=== PATIENT | female | born 1930 | race Caucasian/White ===

== ENCOUNTER 2017-04-07 07:00 | Inpatient (IN) | payer OTHER, MEDICARE ==
[2017-04-07] VITALS (9 sets, daily range): BP systolic 101–142; BP diastolic 55–72; PULSE 72–89; RESP 18–20; TEMP 96.2–97.9; O2SAT 95–99
[~2017-04-07] VITALS: Ht 160 cm; Wt 81.8 kg
[~2017-04-07 07:00] MED LIST: CARV3.125 PO; ENAL20TA81 PO; EQUALIQ7 PO; PRAV40TA2 PO; PRED20; PRED20 PO; PROT40TA PO; SPIR25TA PO; TRAZ50TA4 PO; TYLCOD5S PO
[2017-04-07] MEDS ORDERED: SODIUM CHLORIDE 0.9% FLUSH 5 ML FLUSH IV FLUSH PRN (08:00)
--- NOTE | 2017-04-07 08:17 | PD ---
HPI Chief Complaint: Altered Mental Status Time Seen by Provider: 07:09 Travel History International Travel<30 days: No Contact w/Intl Traveler<30days: No History of Present Illness HPI Patient is an 86-year-old female coming from home presents emergency department for increased all to mental status. According to her family she is normally alert and awake and has no mental problems at baseline. She lives with her family secondary to decreased mobility and uses a walker. They're concerned because over the past 2-3 day she's become increasingly altered and confused not recognizing people. She has had a fall which was unwitnessed and they found her on the ground a few days ago with her walker on top of her. Unclear as to whether she hit her head neck back chest or abdomen. Unclear which way she fell. The patient has no physical complaints now she is mildly altered and medicine mean she is slow to answer my questions and somewhat somnolent. No fevers reported by family members. Family does report that she's been having some cough and congestion over the past few days. PFSH Past Medical History Arthritis: Yes Asthma: No Blood Disorders: No Heart Rhythm Problems: No Cancer: No Cardiovascular Problems: Yes High Cholesterol: Yes Chest Pain: No Congestive Heart Failure: Yes Diminished Hearing: No Endocrine: No Gastrointestinal Disorders: No Genitourinary: Yes (CKD) Hypertension: Yes Immune Disorder: No Musculoskeletal: Yes (ARTHRITIS) Neurologic: No Psychiatric: No Reproductive: No Respiratory: No Immunizations Current: Yes Sleep Apnea: No Ulcer: Yes Menopausal: Yes : 3 Para: 3 Past Surgical History Abdominal Surgery: Yes Cardiac Surgery: No Ear Surgery: No Endocrine Surgery: No Eye Surgery: No Genitourinary Surgery: No Gynecologic Surgery: Yes Hysterectomy: Yes Oral Surgery: No Thoracic Surgery: No Other Surgery: Yes Social History Alcohol Use: No Tobacco Use: No Substance Use: No Allergies-Medications (Allergen,Severity, Reaction): Coded Allergies: No Known Allergies (Verified , 11/25/13) Reported Meds & Prescriptions Reported Meds & Active Scripts Active Reported Deltasone 20 Mg Tab (Prednisone) 20 Mg Tab 20 Mg .ROUTE DAILY 4 Days Deltasone 20 Mg Tab (Prednisone) 20 Mg Tab 20 Mg PO BID 3 Days Tylenol / Codeine Elix Per 5 Ml (Acetaminophen/Codeine Phosphate) 120 Mg/12 Mg Elix 10 Ml PO Q6H PRN Coreg (Carvedilol) 3.125 Mg Tab 3.125 Mg PO BID Trazodone Hcl (Trazodone HCl) 50 Mg Tab 50 Mg PO HS Spironolactone 25 Mg Tab 25 Mg PO DAILY Protonix (Pantoprazole Sodium) 40 Mg Tabdr 40 Mg PO DAILY Pravachol 40 Mg Tab (Pravastatin Sodium) 40 Mg Tab 40 Mg PO DAILY Equate (Nutritional Supplements) Strawber Liq 650 Mg PO DAILY Vasotec (Enalapril Maleate) 20 Mg Tab 20 Mg PO DAILY Review of Systems Except as stated in HPI: all other systems reviewed are Neg Physical Exam Narrative GENERAL: Well-developed well-nourished, no distress, somewhat somnolent. SKIN: Focused skin assessment warm/dry. No abrasions no bruising or lacerations seen on her person. HEAD: Atraumatic. Normocephalic. Vital signs no raccoons eyes. EYES: Pupils equal and round. No scleral icterus. No injection or drainage. ENT: No nasal bleeding or discharge. Mucous membranes pink and moist. NECK: Trachea midline. No JVD. CARDIOVASCULAR: Regular rate and rhythm. No murmur appreciated. RESPIRATORY: No accessory muscle use. Clear to auscultation. Breath sounds equal bilaterally. GASTROINTESTINAL: Abdomen soft, non-tender, nondistended. Hepatic and splenic margins not palpable. MUSCULOSKELETAL: No obvious deformities. No clubbing. No cyanosis. No edema. NEUROLOGICAL: Awake and alert. GCS of 15 but certainly somnolent and slow to respond. Follows commands in all 4 extremity's, cranial nerves II through XII are grossly intact and nonfocal, Data Data Last Documented VS Vital Signs Date Time Temp Pulse Resp B/P (MAP) Pulse Ox O2 Delivery O2 Flow Rate FiO2 04/07/17 11:12 97.9 80 18 101/65 96 04/07/17 07:12 Room Air Orders Orders Electrocardiogram (04/07/17 07:51) Complete Blood Count With Diff (04/07/17 07:51) Comprehensive Metabolic Panel (04/07/17 07:51) Troponin I (04/07/17 07:51) Urinalysis - C+S If Indicated (04/07/17 07:51) Ecg Monitoring (04/07/17 07:51) Iv Access Insert/Monitor (04/07/17 07:51) Oximetry (04/07/17 07:51) Sodium Chloride 0.9% Flush (Ns Flush) (04/07/17 08:00) Urine Culture (04/07/17 08:00) Blood Culture (04/07/17 09:21) Lactic Acid (04/07/17 09:21) Ct Brain W/O Iv Contrast(Rout) (04/07/17 ) Chest, Single Ap (04/07/17 ) Type And Screen (04/07/17 09:21) Red Blood Cells (Rbc) (04/07/17 09:21) Blood Product Administration (04/07/17 09:21) Sodium Chlor 0.9% 250 Ml Inj (Ns 250 Ml (04/07/17 09:30) Ceftriaxone Inj (Rocephin Inj) (04/07/17 10:30) Admit Order (Ed Use Only) (04/07/17 ) Labs Laboratory Tests Test 04/07/17 08:00 04/07/17 08:16 04/07/17 09:30 Urine Color LIGHT-YELLOW Urine Turbidity CLEAR Urine pH 5.0 Urine Specific [place] 1.013 Urine Protein NEG mg/dL Urine Glucose (UA) NEG mg/dL Urine Ketones NEG mg/dL Urine Occult Blood NEG Urine Nitrite NEG Urine Bilirubin NEG Urine Urobilinogen LESS THAN 2.0 MG/DL Urine Leukocyte Esterase LARGE Urine RBC 2 /hpf Urine WBC 10 /hpf Urine Squamous Epithelial Cells 1 /hpf Urine Renal Epithelial Cells <1 /hpf Urine Bacteria MANY /hpf Urine Hyaline Casts 9 /lpf Urine Mucus FEW /lpf Microscopic Urinalysis Comment CATH-CULTURE IND White Blood Count 8.5 TH/MM3 Red Blood Count 2.77 MIL/MM3 Hemoglobin 7.1 GM/DL Hematocrit 22.2 % Mean Corpuscular Volume 79.9 FL Mean Corpuscular Hemoglobin 25.4 PG Mean Corpuscular Hemoglobin Concent 31.8 % Red Cell Distribution Width 19.9 % Platelet Count 495 TH/MM3 Mean Platelet Volume 7.2 FL Neutrophils (%) (Auto) 64.8 % Lymphocytes (%) (Auto) 16.5 % Monocytes (%) (Auto) 8.2 % Eosinophils (%) (Auto) 9.5 % Basophils (%) (Auto) 1.0 % Neutrophils # (Auto) 5.5 TH/MM3 Lymphocytes # (Auto) 1.4 TH/MM3 Monocytes # (Auto) 0.7 TH/MM3 Eosinophils # (Auto) 0.8 TH/MM3 Basophils # (Auto) 0.1 TH/MM3 CBC Comment DIFF FINAL Differential Comment Blood Urea Nitrogen 29 MG/DL Creatinine 1.03 MG/DL Random Glucose 106 MG/DL Total Protein 6.3 GM/DL Albumin 3.1 GM/DL Calcium Level 8.5 MG/DL Alkaline Phosphatase 64 U/L Aspartate Amino Transf (AST/SGOT) 13 U/L Alanine Aminotransferase (ALT/SGPT) 21 U/L Total Bilirubin 0.3 MG/DL Sodium Level 137 MEQ/L Potassium Level 4.1 MEQ/L Chloride Level 105 MEQ/L Carbon Dioxide Level 23.2 MEQ/L Anion Gap 9 MEQ/L Estimat Glomerular Filtration Rate 51 ML/MIN Troponin I LESS THAN 0.02 NG/ML Lactic Acid Level 0.9 mmol/L MDM Medical Decision Making Medical Screen Exam Complete: Yes Emergency Medical Condition: Yes Interpretation(s) EKG shows sinus rhythm with first-degree AV block and a VA interval of 237, left axis deviation, Q waves in 3 and aVF, normal R-wave progression. T-wave inversions noted in 1 and aVL undetermined significance. This borderline EKG. Differential Diagnosis Altered mental status, urinary tract infection, sepsis seems unlikely, head injury, URI, pneumonia. Narrative Course Patient roomed emergency department, appears somewhat somnolent but certainly does not appear toxic. Workup does reveal urinary tract infection will be started on Rocephin, CT head negative, chest x-ray negative. She also is anemia with a hemoglobin of 7.1 which could be contributing to her altered mental status, after discussion of risks benefits competitions and alternatives with both her and her family mother she consented to having 2 units of blood. Patient was discussed with Dr. chamberlain for admission who is agreeable. Diagnosis Primary Impression: Altered mental status Qualified Codes: R40.0 - Somnolence Additional Impressions: Complicated urinary tract infection Anemia Qualified Codes: D64.9 - Anemia, unspecified Admitting Information Admitting Physician Requests: Admit Condition: Stable Roberto Carlos Ortez MD Apr 07, 2017 08:17
[2017-04-07 08:26] LABS: AUTOMATED NEUTROPHIL # 5.5 TH/MM3 (1.8-7.7); BASOPHIL # 0.1 TH/MM3 (0-0.2); EOSINOPHIL # 0.8 TH/MM3 (0-0.4); EOSINOPHIL % 9.5 % (0.0-4.0); HEMATOCRIT 22.2 % (35.0-46.0); HEMO FLAGS DIFF FINAL; LYMPH % 16.5 % (9.0-44.0); LYMPHOCYTE # 1.4 TH/MM3 (1.0-4.8); MEAN CELL VOLUME 79.9 FL (80.0-100.0); MEAN CORPUSCULAR HEMOGLOBIN 25.4 PG (27.0-34.0); MEAN CORPUSCULAR HGB CONC 31.8 % (32.0-36.0); MONO % 8.2 % (0.0-8.0); NEUT % 64.8 % (16.0-70.0); PLATELET COUNT 495 TH/MM3 (150-450); RED BLOOD COUNT 2.77 MIL/MM3 (4.00-5.30); RED CELL DISTRIBUTION WIDTH 19.9 % (11.6-17.2); WHITE BLOOD COUNT 8.5 TH/MM3 (4.0-11.0)
[2017-04-07 08:27] LABS: BACTERIA, URINE MANY /hpf; BLOOD, URINE NEG (NEG); COMMENT (UR) CATH-CULTURE IND; CULTURE IF INDICATED CATH CULTURE IND; GLUCOSE,URINE NEG (NEG); HYALINE CAST, URINE 9 /lpf (RARE); KETONE, URINE NEG (NEG); MUCUS URINE FEW /lpf (OCC); NITRITE,URINE NEG (NEG); RENAL EPITHELIAL CELLS <1 /hpf; SQUAMOUS EPITHELIAL CELL URINE 1 /hpf (0-5); URINE COLOR LIGHT-YELLOW (YELLW/STRAW)
[2017-04-07 08:58] LABS: ANION GAP 9 MEQ/L (5-15); AST (GOT) 13 U/L (15-37); BICARBONATE 23.2 MEQ/L (21.0-32.0); BLOOD UREA NITROGEN 29 MG/DL (7-18); CHLORIDE 105 MEQ/L (98-107); GLOMERULAR FILTRATION RATE 51 ML/MIN (>89); POTASSIUM 4.1 MEQ/L (3.5-5.1); SODIUM (NA) 137 MEQ/L (136-145)
[2017-04-07 09:03] LABS: ALKALINE PHOSPHATASE 64 U/L (45-117); ALT (GPT) 21 U/L (10-53); TOTAL BILIRUBIN ADULT 0.3 MG/DL (0.2-1.0)
[2017-04-07] MEDS ORDERED: SODIUM CHLOR 0.9% 250 ML INJ 250 ML IV ONE ×2 (09:30→13:00)
--- NOTE | 2017-04-07 09:42 | RADRPT ---
EXAM DATE/TIME: 04/07/2017 09:32 [facility] COMPARISON: CT PULMONARY ANGIOGRAM, November 26, 2013, 0:15. CHEST SINGLE AP, November 25, 2013, 21:30. INDICATIONS : Cough and shortness of breath. MEDICAL HISTORY : None. SURGICAL HISTORY : None. ENCOUNTER: Initial ACUITY: 2 days PAIN SCORE: 0/10 LOCATION: chest FINDINGS: Portable AP view of the chest demonstrates a normal-sized cardiac silhouette with calcification of th e aorta. Lungs are underinflated with interstitial prominence at the lung bases bilaterally. No effus ion, consolidation, or pneumothorax is visualized. Bones and soft tissues demonstrate no acute findin g. 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 CONCLUSION: Underinflation with opacities at the lung bases stable from the prior study representing interstitial lung disease. Shayan Russo MD on April 07, 2017 at 9:39 Board Certified Radiologist. This report was verified electronically.
--- NOTE | 2017-04-07 10:05 | RADRPT ---
EXAM DATE/TIME: 04/07/2017 09:49 [facility] COMPARISON: No previous studies available for comparison. INDICATIONS : Increased confusion. RADIATION DOSE: 32.66 CTDIvol (mGy) MEDICAL HISTORY : Hypertension. SURGICAL HISTORY : Hysterectomy. ENCOUNTER: Initial ACUITY: 1 day PAIN SCALE: 0/10 LOCATION: cranial TECHNIQUE: Multiple contiguous axial images were obtained of the head. Using automated exposure control and adj ustment of the mA and/or kV according to patient size, radiation dose was kept as low as reasonably a chievable to obtain optimal diagnostic quality images. DICOM format image data is available electro nically for review and comparison. FINDINGS: CEREBRUM: The ventricles are normal. There is mild generalized atrophy. No evidence of midline shift, mass les ion, hemorrhage or acute infarction. No extra-axial fluid collections are seen. There is calcificati on of the intracranial internal carotid arteries. POSTERIOR FOSSA: The cerebellum and brainstem are intact. The 4th ventricle is midline. The cerebellopontine angle i s unremarkable. EXTRACRANIAL: Visualized sinuses are clear. SKULL: The calvaria is intact. No evidence of skull fracture. CONCLUSION: No acute intracranial abnormality is identified. Shayan Russo MD on April 07, 2017 at 10:00 Board Certified Radiologist. This report was verified electronically.
[2017-04-07] MEDS ORDERED: cefTRIAXone INJ 1,000 MG in SODIUM CHLORIDE 0.9% INJ 100 ML IV ONE (10:30)
[2017-04-07] MEDS ORDERED: LACTULOSE SYRUP 20 GM/30 ML CUP PO PRN (11:30)
[2017-04-07] MEDS ORDERED: SENNOSIDES 8.6 MG TAB PO PRN (11:30)
[2017-04-07] MEDS ORDERED: MORPHINE SULFATE 4 MG/ML INJ IV PRN ×2 (11:30)
[2017-04-07] MEDS ORDERED: ACETAMINOPHEN 325 MG TAB PO PRN ×3 (11:30→13:00)
[2017-04-07] MEDS ORDERED: ONDANSETRON HCL 4 MG/2 ML VIAL IVP PRN (11:30)
[2017-04-07] MEDS ORDERED: NALOXONE HCL 0.4 MG/ML AMP IV PRN (11:30)
[2017-04-07] MEDS ORDERED: BISACODYL 10 MG SUPP RECTAL PRN (11:30)
[2017-04-07] MEDS ORDERED: ACETAMINOPHEN/CODEINE ELIX 120 MG/12 MG/5 ML CUP PO PRN (11:30)
[2017-04-07] MEDS ORDERED: MAGNESIUM HYDROXIDE SUSP 30 ML CUP PO PRN (11:30)
[2017-04-07] MEDS ORDERED: PROCHLORPERAZINE 25 MG SUPP RECTAL PRN (11:30)
[2017-04-07] MEDS ORDERED: SODIUM CHLORIDE 0.9% FLUSH 10 ML FLUSH IV FLUSH PRN (11:30)
[2017-04-07] MEDS ORDERED: traMADol HCL 50 MG TAB PO PRN ×2 (11:30)
[2017-04-07] MEDS ORDERED: diphenhydrAMINE HCL 25 MG CAP PO PRN (13:00)
[2017-04-07] MEDS ORDERED: FUROSEMIDE 20 MG/2 ML VIAL IV ONE (14:00)
--- NOTE | 2017-04-07 14:29 | HHI.HP ---
[facility] Chris Hopkins MD Admission Diagnosis Altered mental status, UTI, Anemia Diagnoses: (1) Complicated urinary tract infection (2) Altered mental status Diagnosis: Principal (3) Anemia Diagnosis: Principal (4) Bronchitis Diagnosis: Secondary (5) Hyperlipidemia Diagnosis: Secondary (6) Hypertension Diagnosis: Secondary (7) Upper GI bleed Diagnosis: Principal Travel History International Travel<30 Days: No Contact w/Intl Traveler <30 Da: No History of Present Illness Patient is an 86-year-old female coming from home presents emergency department for increased ALTERED mental status. According to her family she is normally alert and awake and has no mental problems at baseline. She lives with her family secondary to decreased mobility and uses a walker. They're concerned because over the past 2-3 day she's become increasingly altered and confused not recognizing people. She has had a fall which was unwitnessed and they found her on the ground a few days ago with her walker on top of her. Unclear as to whether she hit her head neck back chest or abdomen. Unclear which way she fell. The patient has no physical complaints now she is mildly altered and medicine mean she is slow to answer my questions and somewhat somnolent. No fevers reported by family members. Family does report that she's been having some cough and congestion over the past few days. She was found to be anemic. As well as found to have a urinary tract infection will be treated with Rocephin and will be transfused 2 units packed red blood cells Review of Systems Constitutional: COMPLAINS OF: Fatigue, DENIES: Diaphoretic episodes, Fever, Weight gain, Weight loss, Chills, Dizziness, Change in appetite Endocrine: DENIES: Abnorml menstrual pattern, Heat/cold intolerance, Polydipsia Eyes: DENIES: Blurred vision, Diplopia, Eye inflammation, Eye pain, Vision loss Ears, nose, mouth, throat: DENIES: Tinnitus, Hearing loss, Vertigo, Nasal discharge Respiratory: COMPLAINS OF: Cough, DENIES: Apneas, Snoring, Wheezing, Hemoptysis Cardiovascular: DENIES: Chest pain, Palpitations, Syncope, Dyspnea on Exertion , PND Gastrointestinal: DENIES: Abdominal pain, Black stools, Bloody stools Genitourinary: DENIES: Abnormal vaginal bleeding, Dysmenorrhea, Dyspareunia Musculoskeletal: COMPLAINS OF: Joint pain, Stiffness, DENIES: Muscle aches, Joint Swelling, Back pain Integumentary: DENIES: Abnormal pigmentation, Pruritus, Rash, Nail changes Hematologic/lymphatic: DENIES: Bruising, Lymphadenopathy Immunologic/allergic: DENIES: Eczema, Urticaria Neurologic: COMPLAINS OF: Abnormal gait, Localized weakness, Poor Balance, DENIES: Headache, Paresthesias, Seizures, Speech Problems, Tremor Psychiatric: COMPLAINS OF: Confusion, DENIES: Anxiety, Mood changes, Depression , Hallucinations, Agitation, Suicidal Ideation, Homicidal Ideation Past Family Social History Past Medical History Osteoarthritis Hypertension hyperlipidemia Congestive heart failure Chronic kidney disease History of ulcers COPD GERD Past Surgical History Hysterectomy Reported Medications Reported Meds & Active Scripts Active Reported Deltasone 20 Mg Tab (Prednisone) 20 Mg Tab 20 Mg .ROUTE DAILY 4 Days Deltasone 20 Mg Tab (Prednisone) 20 Mg Tab 20 Mg PO BID 3 Days Tylenol / Codeine Elix Per 5 Ml (Acetaminophen/Codeine Phosphate) 120 Mg/12 Mg Elix 10 Ml PO Q6H PRN Coreg 3.125 mg (Carvedilol) 3.125 Mg Tab 3.125 Mg PO BID Trazodone Hcl (Trazodone HCl) 50 Mg Tab 50 Mg PO HS Spironolactone 25 Mg Tab 25 Mg PO DAILY Protonix (Pantoprazole Sodium) 40 Mg Tabdr 40 Mg PO DAILY Pravastatin Sodium 40 Mg Tab 40 Mg PO DAILY Equate (Nutritional Supplements) Strawber Liq 650 Mg PO DAILY Vasotec (Enalapril Maleate) 20 Mg Tab 20 Mg PO DAILY Allergies: Coded Allergies: No Known Allergies (Verified , 11/25/13) Active Ordered Medications Current Medications IV Flush (NS Flush) 2 ml UNSCH PRN IV FLUSH FLUSH AFTER USING IV ACCESS; Start 04/07/17 at 08:00; Stop 04/07/17 at 12:44; Status DC Sodium Chloride 250 ml @ 15 mls/hr ONCE ONCE IV Last administered on t 11:26; Start 04/07/17 at 09:30; Stop 04/07/17 at 13:26; Status DC Ceftriaxone Sodium 1000 mg/ Sodium Chloride 100 ml @ 200 mls/hr ONCE ONCE IV ; Start 04/07/17 at 10:30; Stop 04/07/17 at 10:59; Status DC Acetaminophen/ Codeine Phosphate (Tylenol - Codeine 120-12 Liq) 10 ml Q6H PRN PO cough; Start 04/07/17 at 11:30 Carvedilol (Coreg) 3.125 mg BID PO ; Start 04/07/17 at 21:00 Pantoprazole Sodium (Protonix) 40 mg DAILY PO ; Start 04/08/17 at 09:00 Pravastatin Sodium (Pravachol) 40 mg DAILY PO ; Start 04/08/17 at 09:00 Spironolactone (Aldactone) 25 mg DAILY PO ; Start 04/08/17 at 09:00 Trazodone HCl (Desyrel) 50 mg HS PO ; Start 04/07/17 at 21:00 Enalapril Maleate (Vasotec) 20 mg DAILY PO ; Start 04/08/17 at 09:00 Non-Formulary Medication 650 mg DAILY PO ; Start 04/08/17 at 09:00; Stop at 09:00; Status DC Sodium Chloride 250 ml @ 15 mls/hr ONCE ONCE IV ; Start 04/07/17 at 13:00; Stop 04/08/17 at 05:39 Acetaminophen (Tylenol) 650 mg Q4H PRN PO SEE LABEL COMMENTS; Start 04/07/17 at 13:00; Stop 04/08/17 at 12:59 Diphenhydramine HCl (Benadryl) 25 mg Q4H PRN PO SEE LABEL COMMENTS; Start at 13:00; Stop 04/08/17 at 12:59 Furosemide (Lasix Inj) 20 mg ONCE ONCE IV ; Start 04/07/17 at 14:00; Stop at 14:01; Status DC Sodium Chloride (NS Flush) 2 ml UNSCH PRN IV FLUSH FLUSH AFTER USING IV ACCESS ; Start 04/07/17 at 11:30 Sodium Chloride (NS Flush) 2 ml BID IV FLUSH ; Start 04/07/17 at 21:00 Acetaminophen (Tylenol) 650 mg Q4H PRN PO TEMP > 100.4; Start 04/07/17 at 11:30 Ondansetron HCl (Zofran Inj) 4 mg Q6H PRN IVP NAUSEA OR VOMITING; Start at 11:30 Prochlorperazine (Compazine Supp) 25 mg Q12H PRN RECTAL NAUSEA OR VOMITING; Start 04/07/17 at 11:30 Heparin Sodium (Porcine) (Heparin Inj) 5,000 units Q12H SQ ; Start 04/07/17 at 14 :00 Acetaminophen (Tylenol) 650 mg Q6H PRN PO PAIN SCALE 1 TO 2; Start 04/07/17 at 11:30 Morphine Sulfate (Morphine Inj) 2 mg Q3H PRN IV Pain 3-5; if unable to take PO ; Start 04/07/17 at 11:30 Morphine Sulfate (Morphine Inj) 4 mg Q3H PRN IV Pain 6-10;if unable to take PO ; Start 04/07/17 at 11:30 Tramadol HCl (Ultram) 50 mg Q4H PRN PO PAIN SCALE 3 TO 5; Start 04/07/17 at 11: 30 Tramadol HCl (Ultram) 100 mg Q4H PRN PO PAIN SCALE 6 TO 10; Start 04/07/17 at 11 :30 Naloxone HCl (Narcan Inj) 0.4 mg UNSCH PRN IV SEE LABEL COMMENTS; Start at 11:30 Senna/Docusate Sodium (Elisa-Colace) 1 tab BID PO ; Start 04/07/17 at 21:00 Magnesium Hydroxide (Milk Of Magnesia Liq) 30 ml Q12H PRN PO MILD - MODERATE CONSTIPATION; Start 04/07/17 at 11:30 Sennosides (Senokot) 17.2 mg Q12H PRN PO MODERATE - SEVERE CONSTIPATION; Start 04/07/17 at 11:30 Bisacodyl (Dulcolax Supp) 10 mg DAILY PRN RECTAL SEVERE CONSITIPATION; Start at 11:30 Lactulose (Lactulose Liq) 30 ml DAILY PRN PO SEVERE CONSITIPATION; Start at 11:30 Ceftriaxone Sodium 1000 mg/ Sodium Chloride 100 ml @ 200 mls/hr Q24H IV ; Start 04/08/17 at 10:30; Status UNV Family History Possible hypertension Social History Eyes any tobacco alcohol or illicits lives with her son and [id number] Physical Exam Vital Signs Vital Signs Date Time Temp Pulse Resp B/P (MAP) Pulse Ox O2 Delivery O2 Flow Rate FiO2 04/07/17 11:46 97.7 74 18 128/61 99 04/07/17 11:12 97.9 80 18 101/65 96 04/07/17 07:12 76 18 75 Room Air 04/07/17 07:04 97.9 77 18 137/71 (93) Physical Exam GENERAL: This is a well-nourished, well-developed patient, in no apparent distress. SKIN: No rashes, ecchymoses or lesions. Cool and dry. HEAD: Atraumatic. Normocephalic. No temporal or scalp tenderness. EYES: Pupils equal round and reactive. Extraocular motions intact. No scleral icterus. No injection or drainage. ENT: Nose without bleeding, purulent drainage or septal hematoma. Throat without erythema, tonsillar hypertrophy or exudate. Uvula midline. Airway patent. Nose midline NECK: Trachea midline. No JVD or lymphadenopathy. Supple, nontender, no meningeal signs. CARDIOVASCULAR: Regular rate and rhythm without murmurs, gallops, or rubs. S1- S2 no S3 or S4 no heave or thrill or rub RESPIRATORY: Clear to auscultation. Breath sounds equal bilaterally. No wheezes , rales, or rhonchi. GASTROINTESTINAL: Abdomen soft, non-tender, nondistended. No hepato-splenomegaly , or palpable masses. No guarding. MUSCULOSKELETAL: Extremities without clubbing, cyanosis, or edema. No joint tenderness, effusion, or edema noted. No calf tenderness. Negative Homans sign bilaterally. NEUROLOGICAL: Awake and alert. Cranial nerves II through XII intact. Motor and sensory grossly within normal limits. 4 out of 5 muscle strength in all muscle groups. Normal speech. Insight and judgment of her abnormal Mood and behavior somewhat appropriate Laboratory Laboratory Tests Test 04/07/17 08:00 04/07/17 08:16 04/07/17 09:30 Urine Color LIGHT-YELLOW Urine Turbidity CLEAR Urine pH 5.0 Urine Specific [place] 1.013 Urine Protein NEG Urine Glucose (UA) NEG Urine Ketones NEG Urine Occult Blood NEG Urine Nitrite NEG Urine Bilirubin NEG Urine Urobilinogen LESS THAN 2.0 Urine Leukocyte Esterase LARGE Urine RBC 2 Urine WBC 10 Urine Squamous Epithelial Cells 1 Urine Renal Epithelial Cells <1 Urine Bacteria MANY Urine Hyaline Casts 9 Urine Mucus FEW Microscopic Urinalysis Comment CATH-CULTURE IND White Blood Count 8.5 Red Blood Count 2.77 Hemoglobin 7.1 Hematocrit 22.2 Mean Corpuscular Volume 79.9 Mean Corpuscular Hemoglobin 25.4 Mean Corpuscular Hemoglobin Concent 31.8 Red Cell Distribution Width 19.9 Platelet Count 495 Mean Platelet Volume 7.2 Neutrophils (%) (Auto) 64.8 Lymphocytes (%) (Auto) 16.5 Monocytes (%) (Auto) 8.2 Eosinophils (%) (Auto) 9.5 Basophils (%) (Auto) 1.0 Neutrophils # (Auto) 5.5 Lymphocytes # (Auto) 1.4 Monocytes # (Auto) 0.7 Eosinophils # (Auto) 0.8 Basophils # (Auto) 0.1 CBC Comment DIFF FINAL Differential Comment Blood Urea Nitrogen 29 Creatinine 1.03 Random Glucose 106 Total Protein 6.3 Albumin 3.1 Calcium Level 8.5 Alkaline Phosphatase 64 Aspartate Amino Transf (AST/SGOT) 13 Alanine Aminotransferase (ALT/SGPT) 21 Total Bilirubin 0.3 Sodium Level 137 Potassium Level 4.1 Chloride Level 105 Carbon Dioxide Level 23.2 Anion Gap 9 Estimat Glomerular Filtration Rate 51 Troponin I LESS THAN 0.02 Lactic Acid Level 0.9 Date/Time Source Procedure Growth Status 04/07/17 09:30 Blood Peripheral Aerobic Blood Culture Pending Received 04/07/17 09:30 Blood Peripheral Anaerobic Blood Culture Pending Received 04/07/17 08:00 Urine Clean Catch Urine Culture Pending Received Result Diagram: 04/07/17 0816 04/07/17 0816 Imaging Last Impressions Head CT 04/07/17 0000 Signed Impressions: Service Date/Time: Friday, April 07, 2017 09:49 - CONCLUSION: No acute intracranial abnormality is identified. Shayan Russo MD Chest X-Ray 04/07/17 0000 Signed Impressions: Service Date/Time: Friday, April 07, 2017 09:32 - CONCLUSION: Underinflation with opacities at the lung bases stable from the prior study representing interstitial lung disease. MD Taz Trejo VTE Risk Assessment Taz VTE Risk Assessment: Mod/High Risk (score >= 2) Caprini Risk Assessment Model Point Value = 1 Point Value = 2 Point Value = 3 Point Value = 5 Age 41-60 Minor surgery BMI > 25 kg/m2 Swollen legs Varicose veins or History of unexplained or recurrent spontaneous Oral contraceptives or hormone replacement Sepsis (< 1 month) Serious lung disease, including pneumonia (< 1 month) Abnormal pulmonary function Acute myocardial infarction Congestive heart failure (< 1 month) History of inflammatory bowel disease Medical patient at bed rest Age 61-74 Arthroscopic surgery Major open surgery (> 45 min) Laparoscopic surgery (> 45 min) Malignancy Confined to bed (> 72 hours) Immobilizing plaster cast Central venous access Age >= 75 History of VTE Family history of VTE Factor V Leiden Prothrombin [id number] Lupus anticoagulant Anticardiolipin antibodies Elevated serum homocysteine Heparin-induced thrombocytopenia Other congenital or acquired thrombophilia Stroke (< 1 month) Elective arthroplasty Hip, pelvis, or leg fracture Acute spinal cord injury (< 1 month) Prophylaxis Regimen Total Risk Factor Score Risk Level Prophylaxis Regimen 0-1 Low Early ambulation 2 Moderate Order ONE of the following: *Sequential Compression Device (SCD) *Heparin 5000 units SQ BID 3-4 Higher Order ONE of the following medications: *Heparin 5000 units SQ TID *Enoxaparin/Lovenox 40 mg SQ daily (WT < 150 kg, CrCl > 30 mL/min) *Enoxaparin/Lovenox 30 mg SQ daily (WT < 150 kg, CrCl > 10-29 mL/min) *Enoxaparin/Lovenox 30 mg SQ BID (WT < 150 kg, CrCl > 30 mL/min) AND/OR *Sequential Compression Device (SCD) 5 or more Highest Order ONE of the following medications: *Heparin 5000 units SQ TID (Preferred with Epidurals) *Enoxaparin/Lovenox 40 mg SQ daily (WT < 150 kg, CrCl > 30 mL/min) *Enoxaparin/Lovenox 30 mg SQ daily (WT < 150 kg, CrCl > 10-29 mL/min) *Enoxaparin/Lovenox 30 mg SQ BID (WT < 150 kg, CrCl > 30 mL/min) AND *Sequential Compression Device (SCD) Assessment and Plan Problem List: (1) Upper GI bleed ICD Code: K92.2 - Gastrointestinal hemorrhage, unspecified (2) Hypertension ICD Code: I10 - Hypertension Status: Acute (3) Bronchitis ICD Code: J40 - Bronchitis Status: Acute (4) Hyperlipidemia ICD Code: E78.5 - Hyperlipidemia Status: Acute (5) Complicated urinary tract infection ICD Code: N39.0 - Urinary tract infection, site not specified Status: Acute (6) Altered mental status ICD Code: R41.82 - Altered mental status, unspecified Status: Acute (7) Anemia ICD Code: D64.9 - Anemia, unspecified Status: Acute (8) Reactive airway disease ICD Code: J45.909 - Reactive airway disease Status: Acute Assessment and Plan Urinary tract infection with altered mental status will treat with Rocephin IV daily Anemia possibly due to upper GI bleed since patient takes chronic to aspirin daily We'll transfuse will continue on Protonix will consult GI We'll get a Hemoccult stools Hypertension continue home medications HYPERlipidemia continue home medications History of possible ulcers continue on PPI Gait instability consult physical therapy occupational therapy Insomnia continue on trazodone Advanced age and multiple recent falls Code Status Full code Discussed Condition With I have discussed with the patient, the RN, the family, and emergency room physician Physician Certification 2 Midnight Certification Type: Admission for Inpatient Services Order for Inpatient Services The services are ordered in accordance with Medicare regulations or non- Medicare payer requirements, as applicable. In the case of services not specified as inpatient-only, they are appropriately provided as inpatient services in accordance with the 2-midnight benchmark. Estimated LOS (days): 3 3 days is the estimated time the patient will need to remain in the hospital, assuming treatment plan goals are met and no additional complications. Post-Hospital Plan: Not yet determined Problem Qualifiers (1) Altered mental status: Qualified Codes: R40.0 - Somnolence (2) Anemia: Qualified Codes: D64.9 - Anemia, unspecified Jamaal Hernandez DO Apr 07, 2017 14:29
[2017-04-07] MEDS ORDERED: RESP: ALBUTEROL 2.5 MG/IPRATROPIUM 0.5 MG NEB (PRN) NEB (14:30)
[2017-04-07] MEDS: HEPARIN SODIUM - SQ 10,000 UNITS/ML VIAL SQ SCH (16:12)
[2017-04-07] MEDS: guaiFENesin E.R. 600 MG TAB PO SCH ×2 (16:13→21:23)
[2017-04-07] MEDS: RESP: ALBUTEROL 2.5 MG/IPRATROPIUM 0.5 MG NEB (SCH) NEB ×2 (16:21→22:33)
[2017-04-07 17:28] LABS: CREATINE KINASE 46 U/L (26-192)
--- NOTE | 2017-04-07 20:48 | MB ---
cc: TOI MAHER M.D. DATE OF CONSULTATION 04/07/[address] Jamaal Hernandez DATE OF 1930 REASON FOR CONSULTATION Anemia, possible GI bleed. HISTORY OF PRESENT ILLNESS Ms. José is an 86-year-old female admitted to the hospital with altered mental status. She was found to have anemia. The patient is normally alert and oriented, currently back to baseline. The patient had a fall which was unwitnessed, was found on the ground with a walker on top of her. As per the family she does not have a history of anemia. She was seen by her primary care doctor. According to them she is not on iron supplementation. In going back to her records it looks like she had anemia back in 2008. At that time she underwent an upper endoscopy that showed gastritis and severe esophagitis. According to her she is taking two regular tablets of aspirin at night in order for her to sleep. No melena, hematemesis or hematochezia. Unclear if she had a colonoscopy or not and if she did when. According to the family she did have decreased appetite for the last couple of days. PAST MEDICAL HISTORY Osteoarthritis, hypertension, hyperlipidemia, CHF, chronic kidney disease. History of peptic ulcer disease, COPD and reflux. PAST SURGICAL HISTORY Hysterectomy. MEDICATIONS Medications at home: 1. Deltasone. 2. Tylenol. 3. Trazodone. 4. Spironolactone. 5. Protonix. 6. Vasotec. 7. ___. 8. Aspirin. ALLERGIES No known allergies. MEDICATIONS In the hospital she was started on: 1. Ceftriaxone. 2. Tylenol. 3. Coreg. 4. Pantoprazole. 5. Pravachol. 6. Aldactone. 7. Trazodone. 8. Enalapril. 9. Tylenol. 10. Benadryl. 11. Lasix. 12. ___. REVIEW OF SYSTEMS CONSTITUTIONAL: She denies any fever or chills, weight loss or weight gain. ENT: No alteration in baseline hearing or visual acuity. PULMONARY: Denies any chest pain, shortness of breath. GASTROINTESTINAL: As above. GENITOURINARY: Denies dysuria, hematuria. HEMATOLOGIC: Does have history of anemia. No bleeding disorder. SKIN: No alteration in baseline skin lesion. NEUROLOGICAL: No history of TIA. Admitted with altered mental status, improved at this time. EXTREMITIES: No pedal edema. PHYSICAL EXAMINATION GENERAL: On clinical exam she is sitting on the commode at this time, in no acute distress. VITAL SIGNS: Temperature is 97.1, blood pressure 142/72, pulse ox 99. HEENT: PERRLA, pale. NECK: No JVD. No lymphadenopathy. CHEST: Clear to auscultation and palpation. CARDIOVASCULAR: S1-S2. No murmur. ABDOMEN: Obese. Bowel sounds are present. 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 LABORATORY DATA Hemoglobin is 7.1 currently receiving 2 units of PRBC. MCV 79, platelets 495. Chemistry suggestive of BUN 29, creatinine 1.03, AST 13. IMPRESSION Symptomatic anemia. No indication of active bleed at this time. Anemia, history of NSAID use, possible peptic ulcer disease. History of peptic ulcer disease, possible recurrence. Iron deficiency anemia, a GI malignancy needs to be ruled out. RECOMMENDATIONS Upper endoscopy will be scheduled in the morning. If this is negative consider colonoscopy. Advance diet. Monitor H&H closely. Transfuse to keep hemoglobin more than 8. I would like to thank Dr. Hernandez for referring her to our office for consultation. Findings and plan were discussed in detail with the family who is at bedside. Toi Maher MD BSB/EO /7:58 PM /8:27 PM MTDNina
[2017-04-07] MEDS: SODIUM CHLORIDE 0.9% FLUSH 10 ML FLUSH IV FLUSH SCH (21:21)
[2017-04-07] MEDS: PANTOPRAZOLE SOD 40 MG DELAYED RELEASE TAB PO SCH (21:23)
[2017-04-07] MEDS: traZODone HCL 50 MG TAB PO SCH (21:24)
[2017-04-07] MEDS: DOCUSATE SODIUM 50 MG/SENNA 8.6 MG TAB PO SCH (21:24)
[2017-04-07] MEDS: CARVEDILOL 3.125 MG TAB PO SCH (21:26)
[2017-04-07 22:57] LABS: CREATINE KINASE 55 U/L (26-192)
[2017-04-08] VITALS (10 sets, daily range): BP systolic 105–125; BP diastolic 57–60; PULSE 72–87; RESP 16–18; TEMP 96.8–99.1; O2SAT 92–96
[2017-04-08] MEDS: RESP: ALBUTEROL 2.5 MG/IPRATROPIUM 0.5 MG NEB (SCH) NEB ×4 (03:32→20:55)
[2017-04-08] MEDS: HEPARIN SODIUM - SQ 10,000 UNITS/ML VIAL SQ SCH ×2 (05:02→14:00)
[2017-04-08] MEDS: PRAVASTATIN SOD 40 MG TAB PO SCH (08:22)
[2017-04-08] MEDS: ENALAPRIL MALEATE 10 MG TAB PO SCH (08:22)
[2017-04-08] MEDS: SPIRONOLACTONE 25 MG TAB PO SCH (08:22)
[2017-04-08] MEDS: guaiFENesin E.R. 600 MG TAB PO SCH ×2 (08:22→21:41)
[2017-04-08] MEDS: PANTOPRAZOLE SOD 40 MG DELAYED RELEASE TAB PO SCH ×2 (08:22→21:41)
[2017-04-08] MEDS: SODIUM CHLORIDE 0.9% FLUSH 10 ML FLUSH IV FLUSH SCH ×2 (08:22→21:42)
[2017-04-08] MEDS: CARVEDILOL 3.125 MG TAB PO SCH ×2 (08:22→21:41)
[2017-04-08] MEDS: DOCUSATE SODIUM 50 MG/SENNA 8.6 MG TAB PO SCH ×2 (08:22→21:41)
--- NOTE | 2017-04-08 08:28 | HHI.PR ---
Subjective Remarks Patient is an 86-year-old female coming from home presents emergency department for increased ALTERED mental status. According to her family she is normally alert and awake and has no mental problems at baseline. She lives with her family secondary to decreased mobility and uses a walker. They're concerned because over the past 2-3 day she's become increasingly altered and confused not recognizing people. She has had a fall which was unwitnessed and they found her on the ground a few days ago with her walker on top of her. Unclear as to whether she hit her head neck back chest or abdomen. Unclear which way she fell. The patient has no physical complaints now she is mildly altered and medicine mean she is slow to answer my questions and somewhat somnolent. No fevers reported by family members. Family does report that she's been having some cough and congestion over the past few days. She was found to be anemic. As well as found to have a urinary tract infection will be treated with Rocephin and will be transfused 2 units packed red blood cells 9-10 HOPEFULLY TO HAVE EGD TODAY LITTLE LESS CONFUSED TODAY THOUGHT SHE WAS AT [facility] YEAR IS 1917 Objective Vitals Vital Signs Date Time Temp Pulse Resp B/P (MAP) Pulse Ox O2 Delivery O2 Flow Rate FiO2 04/08/17 06:00 72 04/08/17 04:00 97.3 83 18 112/58 (76) 95 04/08/17 00:00 87 04/08/17 00:00 97.7 87 18 105/60 (75) 94 04/07/17 22:35 95 04/07/17 20:50 97.7 88 18 114/55 96 04/07/17 20:00 88 04/07/17 17:17 96.2 89 18 103/70 95 04/07/17 16:00 97.1 83 18 142/72 (95) 97 04/07/17 12:00 97.7 72 20 141/69 (93) 98 04/07/17 11:46 97.7 74 18 128/61 99 04/07/17 11:12 97.9 80 18 101/65 96 I/O 04/07/17 04/07/17 04/07/17 04/08/17 04/08/17 04/08/17 07:00 15:00 23:00 07:00 15:00 23:00 Intake Total 250 ml 1100 ml Balance 250 ml 1100 ml Intake Oral 840 ml Packed Cells 250 ml 250 ml Blood Product IV Normal Saline Flush 10 ml # Voids 13 Result Diagram: 04/07/17 0816 04/07/17 0816 Other Results Laboratory Tests Test 04/07/17 08:00 04/07/17 08:16 04/07/17 09:30 04/07/17 16:14 Urine Color LIGHT-YELLOW Urine Turbidity CLEAR Urine pH 5.0 Urine Specific [place] 1.013 Urine Protein NEG mg/dL Urine Glucose (UA) NEG mg/dL Urine Ketones NEG mg/dL Urine Occult Blood NEG Urine Nitrite NEG Urine Bilirubin NEG Urine Urobilinogen LESS THAN 2.0 MG/DL Urine Leukocyte Esterase LARGE Urine RBC 2 /hpf Urine WBC 10 /hpf Urine Squamous Epithelial Cells 1 /hpf Urine Renal Epithelial Cells <1 /hpf Urine Bacteria MANY /hpf Urine Hyaline Casts 9 /lpf Urine Mucus FEW /lpf Microscopic Urinalysis Comment CATH-CULTURE IND White Blood Count 8.5 TH/MM3 Red Blood Count 2.77 MIL/MM3 Hemoglobin 7.1 GM/DL Hematocrit 22.2 % Mean Corpuscular Volume 79.9 FL Mean Corpuscular Hemoglobin 25.4 PG Mean Corpuscular Hemoglobin Concent 31.8 % Red Cell Distribution Width 19.9 % Platelet Count 495 TH/MM3 Mean Platelet Volume 7.2 FL Neutrophils (%) (Auto) 64.8 % Lymphocytes (%) (Auto) 16.5 % Monocytes (%) (Auto) 8.2 % Eosinophils (%) (Auto) 9.5 % Basophils (%) (Auto) 1.0 % Neutrophils # (Auto) 5.5 TH/MM3 Lymphocytes # (Auto) 1.4 TH/MM3 Monocytes # (Auto) 0.7 TH/MM3 Eosinophils # (Auto) 0.8 TH/MM3 Basophils # (Auto) 0.1 TH/MM3 CBC Comment DIFF FINAL Differential Comment Blood Urea Nitrogen 29 MG/DL Creatinine 1.03 MG/DL Random Glucose 106 MG/DL Total Protein 6.3 GM/DL Albumin 3.1 GM/DL Calcium Level 8.5 MG/DL Alkaline Phosphatase 64 U/L Aspartate Amino Transf (AST/SGOT) 13 U/L Alanine Aminotransferase (ALT/SGPT) 21 U/L Total Bilirubin 0.3 MG/DL Sodium Level 137 MEQ/L Potassium Level 4.1 MEQ/L Chloride Level 105 MEQ/L Carbon Dioxide Level 23.2 MEQ/L Anion Gap 9 MEQ/L Estimat Glomerular Filtration Rate 51 ML/MIN Troponin I LESS THAN 0.02 NG/ML LESS THAN 0.02 NG/ML Lactic Acid Level 0.9 mmol/L Total Creatine Kinase 46 U/L Test 04/07/17 21:43 Total Creatine Kinase 55 U/L Troponin I LESS THAN 0.02 NG/ML Imaging Last Impressions Head CT 04/07/17 0000 Signed Impressions: Service Date/Time: Friday, April 07, 2017 09:49 - CONCLUSION: No acute intracranial abnormality is identified. Shayan Russo MD Chest X-Ray 04/07/17 0000 Signed Impressions: Service Date/Time: Friday, April 07, 2017 09:32 - CONCLUSION: Underinflation with opacities at the lung bases stable from the prior study representing interstitial lung disease. Shayan Russo MD Objective Remarks GENERAL: This is a well-nourished, well-developed patient, in no apparent distress. SKIN: No rashes, ecchymoses or lesions. Cool and dry. HEAD: Atraumatic. Normocephalic. No temporal or scalp tenderness. EYES: Pupils equal round and reactive. Extraocular motions intact. No scleral icterus. No injection or drainage. ENT: Nose without bleeding, purulent drainage or septal hematoma. Throat without erythema, tonsillar hypertrophy or exudate. Uvula midline. Airway patent. Nose midline NECK: Trachea midline. No JVD or lymphadenopathy. Supple, nontender, no meningeal signs. CARDIOVASCULAR: Regular rate and rhythm without murmurs, gallops, or rubs. S1- S2 no S3 or S4 no heave or thrill or rub RESPIRATORY: Clear to auscultation. Breath sounds equal bilaterally. No wheezes , rales, or rhonchi. GASTROINTESTINAL: Abdomen soft, non-tender, nondistended. No hepato-splenomegaly , or palpable masses. No guarding. MUSCULOSKELETAL: Extremities without clubbing, cyanosis, or edema. No joint tenderness, effusion, or edema noted. No calf tenderness. Negative Homans sign bilaterally. NEUROLOGICAL: Awake and alert. Cranial nerves II through XII intact. Motor and sensory grossly within normal limits. 4 out of 5 muscle strength in all muscle groups. Normal speech. Insight and judgment of her abnormal Mood and behavior somewhat appropriate Medications and IVs Current Medications IV Flush (NS Flush) 2 ml UNSCH PRN IV FLUSH FLUSH AFTER USING IV ACCESS; Start 04/07/17 at 08:00; Stop 04/07/17 at 12:44; Status DC Sodium Chloride 250 ml @ 15 mls/hr ONCE ONCE IV Last administered on 11:26; Start 04/07/17 at 09:30; Stop 04/07/17 at 13:26; Status DC Ceftriaxone Sodium 1000 mg/ Sodium Chloride 100 ml @ 200 mls/hr ONCE ONCE IV Last administered on 04/07/17 16:11; Start 04/07/17 at 10:30; Stop 04/07/17 at 10: 59; Status DC Acetaminophen/ Codeine Phosphate (Tylenol - Codeine 120-12 Liq) 10 ml Q6H PRN PO cough; Start 04/07/17 at 11:30 Carvedilol (Coreg) 3.125 mg BID PO Last administered on 04/07/17 21:26; Start 04/07/17 at 21:00 Pantoprazole Sodium (Protonix) 40 mg DAILY PO ; Start 04/08/17 at 09:00; Stop at 09:00; Status DC Pravastatin Sodium (Pravachol) 40 mg DAILY PO ; Start 04/08/17 at 09:00 Spironolactone (Aldactone) 25 mg DAILY PO ; Start 04/08/17 at 09:00 Trazodone HCl (Desyrel) 50 mg HS PO Last administered on 04/07/17 21:24; Start 04/07/17 at 21:00 Enalapril Maleate (Vasotec) 20 mg DAILY PO ; Start 04/08/17 at 09:00 Non-Formulary Medication 650 mg DAILY PO ; Start 04/08/17 at 09:00; Stop at 09:00; Status DC Sodium Chloride 250 ml @ 15 mls/hr ONCE ONCE IV Last administered on 13:00; Start 04/07/17 at 13:00; Stop 04/08/17 at 05:39; Status DC Acetaminophen (Tylenol) 650 mg Q4H PRN PO SEE LABEL COMMENTS; Start 04/07/17 at 13:00; Stop 04/08/17 at 12:59 Diphenhydramine HCl (Benadryl) 25 mg Q4H PRN PO SEE LABEL COMMENTS; Start at 13:00; Stop 04/08/17 at 12:59 Furosemide (Lasix Inj) 20 mg ONCE ONCE IV Last administered on 04/07/17 16:12 ; Start 04/07/17 at 14:00; Stop 04/07/17 at 14:01; Status DC Sodium Chloride (NS Flush) 2 ml UNSCH PRN IV FLUSH FLUSH AFTER USING IV ACCESS ; Start 04/07/17 at 11:30 Sodium Chloride (NS Flush) 2 ml BID IV FLUSH Last administered on 04/07/17 21: 21; Start 04/07/17 at 21:00 Acetaminophen (Tylenol) 650 mg Q4H PRN PO TEMP > 100.4; Start 04/07/17 at 11:30 Ondansetron HCl (Zofran Inj) 4 mg Q6H PRN IVP NAUSEA OR VOMITING; Start at 11:30 Prochlorperazine (Compazine Supp) 25 mg Q12H PRN RECTAL NAUSEA OR VOMITING; Start 04/07/17 at 11:30 Heparin Sodium (Porcine) (Heparin Inj) 5,000 units Q12H SQ Last administered on 04/08/17 05:02; Start 04/07/17 at 14:00 Acetaminophen (Tylenol) 650 mg Q6H PRN PO PAIN SCALE 1 TO 2; Start 04/07/17 at 11:30 Morphine Sulfate (Morphine Inj) 2 mg Q3H PRN IV Pain 3-5; if unable to take PO ; Start 04/07/17 at 11:30 Morphine Sulfate (Morphine Inj) 4 mg Q3H PRN IV Pain 6-10;if unable to take PO ; Start 04/07/17 at 11:30 Tramadol HCl (Ultram) 50 mg Q4H PRN PO PAIN SCALE 3 TO 5; Start 04/07/17 at 11: 30 Tramadol HCl (Ultram) 100 mg Q4H PRN PO PAIN SCALE 6 TO 10; Start 04/07/17 at 11 :30 Naloxone HCl (Narcan Inj) 0.4 mg UNSCH PRN IV SEE LABEL COMMENTS; Start at 11:30 Senna/Docusate Sodium (Elisa-Colace) 1 tab BID PO Last administered on 04/07/17 21:24; Start 04/07/17 at 21:00 Magnesium Hydroxide (Milk Of Magnesia Liq) 30 ml Q12H PRN PO MILD - MODERATE CONSTIPATION; Start 04/07/17 at 11:30 Sennosides (Senokot) 17.2 mg Q12H PRN PO MODERATE - SEVERE CONSTIPATION; Start 04/07/17 at 11:30 Bisacodyl (Dulcolax Supp) 10 mg DAILY PRN RECTAL SEVERE CONSITIPATION; Start at 11:30 Lactulose (Lactulose Liq) 30 ml DAILY PRN PO SEVERE CONSITIPATION; Start at 11:30 Ceftriaxone Sodium 1000 mg/ Sodium Chloride 100 ml @ 200 mls/hr Q24H IV ; Start 04/08/17 at 16:00 Pantoprazole Sodium (Protonix) 40 mg BID PO Last administered on 04/07/17 21:23 ; Start 04/07/17 at 21:00 Guaifenesin (Mucinex Er) 600 mg BID PO Last administered on 04/07/17 21:23; Start 04/07/17 at 14:30 Albuterol/ Ipratropium (Duoneb Neb) 1 ampule Q6HR NEB NEB Last administered on 04/08/17 03:32; Start 04/07/17 at 16:00 Albuterol/ Ipratropium (Duoneb Neb) 1 ampule Q4HR NEB PRN NEB SHORTNESS OF BREATH; Start 04/07/17 at 14:30 Urinary Catheter: No Vascular Central Line Catheter: No A/P Problem List: (1) Upper GI bleed ICD Code: K92.2 - Gastrointestinal hemorrhage, unspecified (2) Hypertension ICD Code: I10 - Hypertension Status: Acute (3) Bronchitis ICD Code: J40 - Bronchitis Status: Acute (4) Hyperlipidemia ICD Code: E78.5 - Hyperlipidemia Status: Acute (5) Complicated urinary tract infection ICD Code: N39.0 - Urinary tract infection, site not specified Status: Acute (6) Altered mental status ICD Code: R41.82 - Altered mental status, unspecified Status: Acute (7) Anemia ICD Code: D64.9 - Anemia, unspecified Status: Acute (8) Reactive airway disease ICD Code: J45.909 - Reactive airway disease Status: Acute Assessment and Plan Urinary tract infection with altered mental status will treat with Rocephin IV daily Anemia possibly due to upper GI bleed since patient takes chronic 2 aspirin daily We'll transfuse will continue on Protonix will consult GI We'll get a Hemoccult stools Hypertension continue home medications HYPERlipidemia continue home medications History of possible ulcers continue on PPI Gait instability consult physical therapy occupational therapy Insomnia continue on trazodone Advanced age and multiple recent falls FOR EGD TODAY 9-10 CONTINUE ANTIBIOTICS AND HAS BEEN TRANSFUSED Problem Qualifiers (1) Altered mental status: Qualified Codes: R40.0 - Somnolence (2) Anemia: Qualified Codes: D64.9 - Anemia, unspecified Jamaal Hernandez DO Apr 08, 2017 08:28
[2017-04-08] MEDS ORDERED: PANTOPRAZOLE SOD 40 MG DELAYED RELEASE TAB PO SCH (09:00)
[2017-04-08] MEDS ORDERED: NUTRITIONAL SUPPLEMENTS PO SCH (09:00)
[2017-04-08 09:04] LABS: AUTOMATED NEUTROPHIL # 6.4 TH/MM3 (1.8-7.7); BASOPHIL # 0.1 TH/MM3 (0-0.2); BASOPHIL % 0.9 % (0.0-2.0); EOSINOPHIL # 0.6 TH/MM3 (0-0.4); EOSINOPHIL % 6.8 % (0.0-4.0); HEMATOCRIT 28.1 % (35.0-46.0); HEMO FLAGS DIFF FINAL; LYMPH % 16.2 % (9.0-44.0); LYMPHOCYTE # 1.5 TH/MM3 (1.0-4.8); MEAN CELL VOLUME 81.3 FL (80.0-100.0); MEAN CORPUSCULAR HEMOGLOBIN 27.6 PG (27.0-34.0); MONO % 8.8 % (0.0-8.0); NEUT % 67.3 % (16.0-70.0); PLATELET COUNT 399 TH/MM3 (150-450); RED BLOOD COUNT 3.46 MIL/MM3 (4.00-5.30); RED CELL DISTRIBUTION WIDTH 19.1 % (11.6-17.2); WHITE BLOOD COUNT 9.5 TH/MM3 (4.0-11.0)
[2017-04-08 09:19] LABS: ALT (GPT) 18 U/L (10-53); ANION GAP 11 MEQ/L (5-15); AST (GOT) 11 U/L (15-37); BICARBONATE 24.1 MEQ/L (21.0-32.0); BLOOD UREA NITROGEN 28 MG/DL (7-18); CHLORIDE 101 MEQ/L (98-107); GLOMERULAR FILTRATION RATE 52 ML/MIN (>89); MAGNESIUM 1.8 MG/DL (1.5-2.5); POTASSIUM 3.7 MEQ/L (3.5-5.1); SODIUM (NA) 136 MEQ/L (136-145)
[2017-04-08 09:28] LABS: ALKALINE PHOSPHATASE 65 U/L (45-117); TOTAL BILIRUBIN ADULT 0.8 MG/DL (0.2-1.0)
--- NOTE | 2017-04-08 10:03 | EKG ---
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 Inferior infarct pattern - age undetermined is more prominent. Lateral ST-T changes, may consider ischemia. DOCTOR: Claudio Fish Interpretating Date/Time 04/08/2017 10:01:52
[2017-04-08 11:19] LABS: HEMATOCRIT 27.3 % (35.0-46.0); REVIEW FLAG FINAL
[2017-04-08] MEDS ORDERED: PROPOFOL 200 MG/20 ML AMP IV ONE (12:08)
[2017-04-08] MEDS ORDERED: DO NOT ADM ANY ANTICOAGULANT DRUGS PRN (12:18)
--- NOTE | 2017-04-08 12:20 | GIPROC ---
[facility] [address] [facility]. [facility], [address] EGD PROCEDURE REPORT EXAM DATE: 04/08/2017 PATIENT NAME: Debby José MR #: [id number] BIRTHDATE: 1930 ATTENDING: Anne Gilliland MD ORDER #: [id number] SHINGLE INSPECTOR: Phani Garcia and Patricio Joiner STATUS: inpatient INDICATIONS: The patient is a 86 yr old female here for an EGD due to anemia PROCEDURE PERFORMED: EGD w/ biopsy MEDICATIONS: None and Per Anesthesia. TOPICAL ANESTHETIC: none CONSENT: The patient understands the risks and benefits of the procedure and understands that these risks include, but are not limited to: sedation, allergic reaction, infection, perforation and/or bleeding. Alternative means of evaluation and treatment include, among others: physical exam, x-rays, and/or surgical intervention. The patient elects to proceed with this endoscopic procedure. medical equipment was checked for proper function. Hand hygiene and appropriate measures for infection prevention was taken. After the risks, benefits and alternatives of the procedure were thoroughly explained, Informed consent was verified, confirmed and timeout was successfully executed by the treatment team. The patient was anesthetized with topical anesthesia and the Pentax [id number] endoscope was introduced through the mouth and advanced to the second portion of the duodenum. Retroflexed views revealed a hiatal hernia The gastroscope was then slowly withdrawn and removed. Esophagitis distal esophagus -biopsy gastritis antrum-biopsy duodenitis -second portion-biopsy. ADVERSE EVENTS: There were no complications. IMPRESSIONS: 1. Esophagitis distal esophagus -biopsy gastritis antrum-biopsy duodenitis -second portion-biopsy 2. Retroflexed views revealed a hiatal hernia RECOMMENDATIONS: 1. Await biopsy results. Biopsy results will not be ready for 7-10 days. If you don't hear from us in two weeks, call our office for biopsy results. 2. Anti-reflux regimen 3. Continue PPI 4. Colonoscopy sunday unlessindicated otherwise diet-restart PATIENT CONDITION: stable DISPOSITION: Inpatient REPEAT EXAM: EGD pending biopsy results Anne Gilliland MD eSigned: Anne Gilliland MD 04/08/2017 12:20 PM cc: PATIENT NAME: Debby José MR#: [id number]
[2017-04-08 12:49] LABS: HEMOGLOBIN A1b 0.8 %; HEMOGLOBIN LA1C 1.9 %; HEMOGLOBIN P3 5.2 %
[2017-04-08] MEDS ORDERED: LORazepam 0.5 MG TAB PO PRN (16:00)
[2017-04-08] MEDS ORDERED: PILL SPLITTER OTHER PRN (16:15)
[2017-04-08] MEDS: cefTRIAXone INJ 1,000 MG in SODIUM CHLORIDE 0.9% INJ 100 ML IV SCH (17:19)
[2017-04-08] MEDS: traZODone HCL 50 MG TAB PO SCH (21:48)
[2017-04-09] VITALS (13 sets, daily range): BP systolic 90–130; BP diastolic 47–65; PULSE 44–102; RESP 16–18; TEMP 96.2–98.7; O2SAT 91–99
[2017-04-09] MEDS: HEPARIN SODIUM - SQ 10,000 UNITS/ML VIAL SQ SCH ×3 (02:07→23:45)
[2017-04-09] MEDS: RESP: ALBUTEROL 2.5 MG/IPRATROPIUM 0.5 MG NEB (SCH) NEB ×4 (04:00→22:00)
[2017-04-09] MEDS: guaiFENesin E.R. 600 MG TAB PO SCH ×2 (08:44→22:45)
[2017-04-09] MEDS: SODIUM CHLORIDE 0.9% FLUSH 10 ML FLUSH IV FLUSH SCH ×2 (08:44→22:46)
[2017-04-09] MEDS: DOCUSATE SODIUM 50 MG/SENNA 8.6 MG TAB PO SCH ×2 (08:44→22:45)
[2017-04-09] MEDS: SPIRONOLACTONE 25 MG TAB PO SCH (08:45)
[2017-04-09] MEDS: PRAVASTATIN SOD 40 MG TAB PO SCH (08:45)
[2017-04-09] MEDS: PANTOPRAZOLE SOD 40 MG DELAYED RELEASE TAB PO SCH ×2 (08:45→22:45)
[2017-04-09] MEDS: CARVEDILOL 3.125 MG TAB PO SCH ×2 (08:45→22:45)
--- NOTE | 2017-04-09 08:51 | HHI.PR ---
Subjective Remarks Patient is an 86-year-old female coming from home presents emergency department for increased ALTERED mental status. According to her family she is normally alert and awake and has no mental problems at baseline. She lives with her family secondary to decreased mobility and uses a walker. They're concerned because over the past 2-3 day she's become increasingly altered and confused not recognizing people. She has had a fall which was unwitnessed and they found her on the ground a few days ago with her walker on top of her. Unclear as to whether she hit her head neck back chest or abdomen. Unclear which way she fell. The patient has no physical complaints now she is mildly altered and medicine mean she is slow to answer my questions and somewhat somnolent. No fevers reported by family members. Family does report that she's been having some cough and congestion over the past few days. She was found to be anemic. As well as found to have a urinary tract infection will be treated with Rocephin and will be transfused 2 units packed red blood cells 9-10 HOPEFULLY TO HAVE EGD TODAY LITTLE LESS CONFUSED TODAY THOUGHT SHE WAS AT [facility] NOT STAPLES KNEW LAURENT STATES YEAR IS 1917 9--11 patient had EGD yesterday with gastritis esophagitis duodenitis anemia and hiatal hernia Patient became confused yesterday was given some Ativan Today is more alert she knows the president is Laurent Knew the year was 2016 did not know which hospital she was in but states she was in the hospital Slow improvement in mentation Objective Vitals Vital Signs Date Time Temp Pulse Resp B/P (MAP) Pulse Ox O2 Delivery O2 Flow Rate FiO2 04/09/17 04:05 98.7 90 17 121/65 (83) 94 04/09/17 04:00 61 04/09/17 00:05 96.2 80 17 90/49 (63) 91 04/09/17 00:00 86 04/08/17 20:57 93 04/08/17 20:05 99.1 86 16 125/59 (81) 92 04/08/17 20:00 81 04/08/17 17:15 98.5 79 18 114/58 (76) 92 04/08/17 15:59 96 Nasal Cannula 2.00 04/08/17 12:30 81 24 120/78 (92) 93 Room Air 04/08/17 12:28 98.6 81 28 129/60 (83) 93 Nasal Cannula 2 04/08/17 11:30 76 21 103/58 (73) 94 04/08/17 11:15 74 20 107/55 (72) 94 04/08/17 11:11 73 19 96/52 (67) 94 04/08/17 11:09 74/45 (55) 73/41 (52) 04/08/17 10:33 97.9 80 17 112/55 (74) 95 04/08/17 09:15 95 2.00 I/O 04/08/17 04/08/17 04/08/17 04/09/17 04/09/17 04/09/17 07:00 15:00 23:00 07:00 15:00 23:00 Intake Total 1140 ml 480 ml Output Total 400 ml 100 ml Balance 740 ml -100 ml 480 ml Intake Oral 240 ml 480 ml Other 900 ml Output Urine Total 400 ml 100 ml # Voids 4 3 3 # Bowel Movements 1 Result Diagram: 04/08/17 1103 04/08/17 0703 Other Results Laboratory Tests Test 04/07/17 08:00 04/07/17 08:16 04/07/17 09:30 04/07/17 16:14 Urine Color LIGHT-YELLOW Urine Turbidity CLEAR Urine pH 5.0 Urine Specific [place] 1.013 Urine Protein NEG mg/dL Urine Glucose (UA) NEG mg/dL Urine Ketones NEG mg/dL Urine Occult Blood NEG Urine Nitrite NEG Urine Bilirubin NEG Urine Urobilinogen LESS THAN 2.0 MG/DL Urine Leukocyte Esterase LARGE Urine RBC 2 /hpf Urine WBC 10 /hpf Urine Squamous Epithelial Cells 1 /hpf Urine Renal Epithelial Cells <1 /hpf Urine Bacteria MANY /hpf Urine Hyaline Casts 9 /lpf Urine Mucus FEW /lpf Microscopic Urinalysis Comment CATH-CULTURE IND White Blood Count 8.5 TH/MM3 Red Blood Count 2.77 MIL/MM3 Hemoglobin 7.1 GM/DL Hematocrit 22.2 % Mean Corpuscular Volume 79.9 FL Mean Corpuscular Hemoglobin 25.4 PG Mean Corpuscular Hemoglobin Concent 31.8 % Red Cell Distribution Width 19.9 % Platelet Count 495 TH/MM3 Mean Platelet Volume 7.2 FL Neutrophils (%) (Auto) 64.8 % Lymphocytes (%) (Auto) 16.5 % Monocytes (%) (Auto) 8.2 % Eosinophils (%) (Auto) 9.5 % Basophils (%) (Auto) 1.0 % Neutrophils # (Auto) 5.5 TH/MM3 Lymphocytes # (Auto) 1.4 TH/MM3 Monocytes # (Auto) 0.7 TH/MM3 Eosinophils # (Auto) 0.8 TH/MM3 Basophils # (Auto) 0.1 TH/MM3 CBC Comment DIFF FINAL Differential Comment Blood Urea Nitrogen 29 MG/DL Creatinine 1.03 MG/DL Random Glucose 106 MG/DL Total Protein 6.3 GM/DL Albumin 3.1 GM/DL Calcium Level 8.5 MG/DL Alkaline Phosphatase 64 U/L Aspartate Amino Transf (AST/SGOT) 13 U/L Alanine Aminotransferase (ALT/SGPT) 21 U/L Total Bilirubin 0.3 MG/DL Sodium Level 137 MEQ/L Potassium Level 4.1 MEQ/L Chloride Level 105 MEQ/L Carbon Dioxide Level 23.2 MEQ/L Anion Gap 9 MEQ/L Estimat Glomerular Filtration Rate 51 ML/MIN Troponin I LESS THAN 0.02 NG/ML LESS THAN 0.02 NG/ML Lactic Acid Level 0.9 mmol/L Total Creatine Kinase 46 U/L Test 04/07/17 21:43 04/08/17 07:03 04/08/17 11:03 Total Creatine Kinase 55 U/L Troponin I LESS THAN 0.02 NG/ML White Blood Count 9.5 TH/MM3 Red Blood Count 3.46 MIL/MM3 Hemoglobin 9.6 GM/DL 9.2 GM/DL Hematocrit 28.1 % 27.3 % Mean Corpuscular Volume 81.3 FL Mean Corpuscular Hemoglobin 27.6 PG Mean Corpuscular Hemoglobin Concent 34.0 % Red Cell Distribution Width 19.1 % Platelet Count 399 TH/MM3 Mean Platelet Volume 7.6 FL Neutrophils (%) (Auto) 67.3 % Lymphocytes (%) (Auto) 16.2 % Monocytes (%) (Auto) 8.8 % Eosinophils (%) (Auto) 6.8 % Basophils (%) (Auto) 0.9 % Neutrophils # (Auto) 6.4 TH/MM3 Lymphocytes # (Auto) 1.5 TH/MM3 Monocytes # (Auto) 0.8 TH/MM3 Eosinophils # (Auto) 0.6 TH/MM3 Basophils # (Auto) 0.1 TH/MM3 CBC Comment DIFF FINAL Differential Comment Blood Urea Nitrogen 28 MG/DL Creatinine 1.00 MG/DL Random Glucose 87 MG/DL Total Protein 5.8 GM/DL Albumin 2.9 GM/DL Calcium Level 8.9 MG/DL Phosphorus Level 3.2 MG/DL Magnesium Level 1.8 MG/DL Alkaline Phosphatase 65 U/L Aspartate Amino Transf (AST/SGOT) 11 U/L Alanine Aminotransferase (ALT/SGPT) 18 U/L Total Bilirubin 0.8 MG/DL Sodium Level 136 MEQ/L Potassium Level 3.7 MEQ/L Chloride Level 101 MEQ/L Carbon Dioxide Level 24.1 MEQ/L Anion Gap 11 MEQ/L Estimat Glomerular Filtration Rate 52 ML/MIN Hemoglobin A1c 5.2 % Free Thyroxine 1.10 NG/DL Thyroid Stimulating Hormone 3rd Gen 1.290 uIU/ML Imaging Last Impressions Head CT 04/07/17 0000 Signed Impressions: Service Date/Time: Friday, April 07, 2017 09:49 - CONCLUSION: No acute intracranial abnormality is identified. Shayan Russo MD Chest X-Ray 04/07/17 0000 Signed Impressions: Service Date/Time: Friday, April 07, 2017 09:32 - CONCLUSION: Underinflation with opacities at the lung bases stable from the prior study representing interstitial lung disease. Shayan Russo MD Objective Remarks GENERAL: This is a well-nourished, well-developed patient, in no apparent distress. SKIN: No rashes, ecchymoses or lesions. Cool and dry. HEAD: Atraumatic. Normocephalic. No temporal or scalp tenderness. EYES: Pupils equal round and reactive. Extraocular motions intact. No scleral icterus. No injection or drainage. ENT: Nose without bleeding, purulent drainage or septal hematoma. Throat without erythema, tonsillar hypertrophy or exudate. Uvula midline. Airway patent. Nose midline NECK: Trachea midline. No JVD or lymphadenopathy. Supple, nontender, no meningeal signs. CARDIOVASCULAR: Regular rate and rhythm without murmurs, gallops, or rubs. S1- S2 no S3 or S4 no heave or thrill or rub RESPIRATORY: Clear to auscultation. Breath sounds equal bilaterally. No wheezes , rales, or rhonchi. GASTROINTESTINAL: Abdomen soft, non-tender, nondistended. No hepato-splenomegaly , or palpable masses. No guarding. MUSCULOSKELETAL: Extremities without clubbing, cyanosis, or edema. No joint tenderness, effusion, or edema noted. No calf tenderness. Negative Homans sign bilaterally. NEUROLOGICAL: Awake and alert. Cranial nerves II through XII intact. Motor and sensory grossly within normal limits. 4 out of 5 muscle strength in all muscle groups. Normal speech. Insight and judgment of her abnormal Mood and behavior somewhat appropriate Procedures EGD April [address] MAHER Esophagitis gastritis duodenitis and hiatal hernia and anemia Medications and IVs Current Medications IV Flush (NS Flush) 2 ml UNSCH PRN IV FLUSH FLUSH AFTER USING IV ACCESS; Start 04/07/17 at 08:00; Stop 04/07/17 at 12:44; Status DC Sodium Chloride 250 ml @ 15 mls/hr ONCE ONCE IV Last administered on 11:26; Start 04/07/17 at 09:30; Stop 04/07/17 at 13:26; Status DC Ceftriaxone Sodium 1000 mg/ Sodium Chloride 100 ml @ 200 mls/hr ONCE ONCE IV Last administered on 04/07/17 16:11; Start 04/07/17 at 10:30; Stop 04/07/17 at 10: 59; Status DC Acetaminophen/ Codeine Phosphate (Tylenol - Codeine 120-12 Liq) 10 ml Q6H PRN PO cough; Start 04/07/17 at 11:30 Carvedilol (Coreg) 3.125 mg BID PO Last administered on 04/08/17 21:41; Start 04/07/17 at 21:00 Pantoprazole Sodium (Protonix) 40 mg DAILY PO ; Start 04/08/17 at 09:00; Stop at 09:00; Status DC Pravastatin Sodium (Pravachol) 40 mg DAILY PO Last administered on 04/08/17 08 :22; Start 04/08/17 at 09:00 Spironolactone (Aldactone) 25 mg DAILY PO Last administered on 04/08/17 08:22 ; Start 04/08/17 at 09:00 Trazodone HCl (Desyrel) 50 mg HS PO Last administered on 04/08/17 21:48; Start 04/07/17 at 21:00 Enalapril Maleate (Vasotec) 20 mg DAILY PO Last administered on 04/08/17 08:22 ; Start 04/08/17 at 09:00 Non-Formulary Medication 650 mg DAILY PO ; Start 04/08/17 at 09:00; Stop at 09:00; Status DC Sodium Chloride 250 ml @ 15 mls/hr ONCE ONCE IV Last administered on 13:00; Start 04/07/17 at 13:00; Stop 04/08/17 at 05:39; Status DC Acetaminophen (Tylenol) 650 mg Q4H PRN PO SEE LABEL COMMENTS; Start 04/07/17 at 13:00; Stop 04/08/17 at 12:59; Status DC Diphenhydramine HCl (Benadryl) 25 mg Q4H PRN PO SEE LABEL COMMENTS; Start at 13:00; Stop 04/08/17 at 12:59; Status DC Furosemide (Lasix Inj) 20 mg ONCE ONCE IV Last administered on 04/07/17 16:12 ; Start 04/07/17 at 14:00; Stop 04/07/17 at 14:01; Status DC Sodium Chloride (NS Flush) 2 ml UNSCH PRN IV FLUSH FLUSH AFTER USING IV ACCESS ; Start 04/07/17 at 11:30 Sodium Chloride (NS Flush) 2 ml BID IV FLUSH Last administered on 04/08/17 21: 42; Start 04/07/17 at 21:00 Acetaminophen (Tylenol) 650 mg Q4H PRN PO TEMP > 100.4; Start 04/07/17 at 11:30 Ondansetron HCl (Zofran Inj) 4 mg Q6H PRN IVP NAUSEA OR VOMITING; Start at 11:30 Prochlorperazine (Compazine Supp) 25 mg Q12H PRN RECTAL NAUSEA OR VOMITING; Start 04/07/17 at 11:30 Heparin Sodium (Porcine) (Heparin Inj) 5,000 units Q12H SQ Last administered on 04/09/17 02:07; Start 04/07/17 at 14:00 Acetaminophen (Tylenol) 650 mg Q6H PRN PO PAIN SCALE 1 TO 2; Start 04/07/17 at 11:30 Morphine Sulfate (Morphine Inj) 2 mg Q3H PRN IV Pain 3-5; if unable to take PO ; Start 04/07/17 at 11:30 Morphine Sulfate (Morphine Inj) 4 mg Q3H PRN IV Pain 6-10;if unable to take PO ; Start 04/07/17 at 11:30 Tramadol HCl (Ultram) 50 mg Q4H PRN PO PAIN SCALE 3 TO 5; Start 04/07/17 at 11: 30 Tramadol HCl (Ultram) 100 mg Q4H PRN PO PAIN SCALE 6 TO 10; Start 04/07/17 at 11 :30 Naloxone HCl (Narcan Inj) 0.4 mg UNSCH PRN IV SEE LABEL COMMENTS; Start at 11:30 Senna/Docusate Sodium (Elisa-Colace) 1 tab BID PO Last administered on 21:41; Start 04/07/17 at 21:00 Magnesium Hydroxide (Milk Of Magnesia Liq) 30 ml Q12H PRN PO MILD - MODERATE CONSTIPATION; Start 04/07/17 at 11:30 Sennosides (Senokot) 17.2 mg Q12H PRN PO MODERATE - SEVERE CONSTIPATION; Start 04/07/17 at 11:30 Bisacodyl (Dulcolax Supp) 10 mg DAILY PRN RECTAL SEVERE CONSITIPATION; Start at 11:30 Lactulose (Lactulose Liq) 30 ml DAILY PRN PO SEVERE CONSITIPATION; Start at 11:30 Ceftriaxone Sodium 1000 mg/ Sodium Chloride 100 ml @ 200 mls/hr Q24H IV Last administered on 04/08/17 17:19; Start 04/08/17 at 16:00 Pantoprazole Sodium (Protonix) 40 mg BID PO Last administered on 04/08/17 21: 41; Start 04/07/17 at 21:00 Guaifenesin (Mucinex Er) 600 mg BID PO Last administered on 04/08/17 21:41; Start 04/07/17 at 14:30 Albuterol/ Ipratropium (Duoneb Neb) 1 ampule Q6HR NEB NEB Last administered on 04/08/17 20:55; Start 04/07/17 at 16:00 Albuterol/ Ipratropium (Duoneb Neb) 1 ampule Q4HR NEB PRN NEB SHORTNESS OF BREATH; Start 04/07/17 at 14:30 Miscellaneous Information ALL NURSING DEPARTME... UNSCH PRN .XX SEE LABEL COMMENTS; Start 04/08/17 at 12:18; Stop 04/09/17 at 12:17 Propofol (Diprivan 200 Mg/20 ml Inj) 60 mg STK-MED ONCE IV ; Start 04/08/17 at 12:08; Stop 04/08/17 at 12:57; Status DC Lorazepam (Ativan) 0.25 mg Q8H PRN PO ANXIETY Last administered on 04/08/17t 17 :19; Start 04/08/17 at 16:00 Miscellaneous (Pill Splitter) 1 ea UNSCH PRN OTHER SEE LABEL COMMENTS; Start at 16:15 Urinary Catheter: No Vascular Central Line Catheter: No A/P Problem List: (1) Upper GI bleed ICD Code: K92.2 - Gastrointestinal hemorrhage, unspecified (2) Hypertension ICD Code: I10 - Hypertension Status: Acute (3) Bronchitis ICD Code: J40 - Bronchitis Status: Acute (4) Hyperlipidemia ICD Code: E78.5 - Hyperlipidemia Status: Acute (5) Complicated urinary tract infection ICD Code: N39.0 - Urinary tract infection, site not specified Status: Acute (6) Altered mental status ICD Code: R41.82 - Altered mental status, unspecified Status: Acute (7) Anemia ICD Code: D64.9 - Anemia, unspecified Status: Acute (8) Reactive airway disease ICD Code: J45.909 - Reactive airway disease Status: Acute Assessment and Plan Urinary tract infection with altered mental status will treat with Rocephin IV daily Anemia possibly due to upper GI bleed since patient takes chronic 2 aspirin daily We'll transfuse will continue on Protonix will consult GI We'll get a Hemoccult stools Status post EGD April 08 which showed esophagitis gastritis duodenitis anemia and a hiatal hernia Hypertension continue home medications Hyperlipidemia continue home medications History of possible ulcers continue on PPI Gait instability consult physical therapy occupational therapy Insomnia continue on trazodone Advanced age and multiple recent falls FOR EGD TODAY 9-10 esophagitis gastritis duodenitis anemia and a hiatal hernia CONTINUE ANTIBIOTICS AND HAS BEEN TRANSFUSED Continue physical therapy and occupational therapy if more lucid hopefully tomorrow home versus SNF Check a.m. labs Problem Qualifiers (1) Altered mental status: Qualified Codes: R40.0 - Somnolence (2) Anemia: Qualified Codes: D64.9 - Anemia, unspecified Jamaal Hernandez DO Apr 09, 2017 08:51
[2017-04-09] MEDS: ENALAPRIL MALEATE 10 MG TAB PO SCH (08:52)
[2017-04-09 09:36] LABS: AUTOMATED NEUTROPHIL # 5.5 TH/MM3 (1.8-7.7); BASOPHIL # 0.1 TH/MM3 (0-0.2); BASOPHIL % 0.9 % (0.0-2.0); EOSINOPHIL # 0.8 TH/MM3 (0-0.4); EOSINOPHIL % 8.6 % (0.0-4.0); HEMATOCRIT 28.2 % (35.0-46.0); HEMO FLAGS DIFF FINAL; LYMPH % 19.7 % (9.0-44.0); LYMPHOCYTE # 1.8 TH/MM3 (1.0-4.8); MEAN CELL VOLUME 81.7 FL (80.0-100.0); MEAN CORPUSCULAR HEMOGLOBIN 27.2 PG (27.0-34.0); MEAN CORPUSCULAR HGB CONC 33.3 % (32.0-36.0); MONO % 10.3 % (0.0-8.0); NEUT % 60.5 % (16.0-70.0); PLATELET COUNT 419 TH/MM3 (150-450); RED BLOOD COUNT 3.46 MIL/MM3 (4.00-5.30); RED CELL DISTRIBUTION WIDTH 20.1 % (11.6-17.2)
[2017-04-09 09:54] LABS: ANION GAP 9 MEQ/L (5-15); AST (GOT) 14 U/L (15-37); BICARBONATE 24.4 MEQ/L (21.0-32.0); BLOOD UREA NITROGEN 21 MG/DL (7-18); CHLORIDE 102 MEQ/L (98-107); GLOMERULAR FILTRATION RATE 58 ML/MIN (>89); MAGNESIUM 1.9 MG/DL (1.5-2.5); POTASSIUM 3.7 MEQ/L (3.5-5.1); SODIUM (NA) 135 MEQ/L (136-145)
[2017-04-09 09:56] LABS: ALT (GPT) 17 U/L (10-53)
[2017-04-09] MEDS ORDERED: MAGNESIUM CITRATE SOLN 300 ML BTL PO ONE ×2 (10:00→16:00)
[2017-04-09 10:08] LABS: ALKALINE PHOSPHATASE 61 U/L (45-117); TOTAL BILIRUBIN ADULT 0.5 MG/DL (0.2-1.0)
[2017-04-09] MEDS: cefTRIAXone INJ 1,000 MG in SODIUM CHLORIDE 0.9% INJ 100 ML IV SCH (16:15)
--- NOTE | 2017-04-09 17:46 | HHI.GIFU ---
GI Follow-up Note Consult Follow-up Subjective: Patient laying in bed comfortably, feeling good.Denies any nausea, vomiting .Confused Objective: PHYSICAL EXAMINATION: Vitals signs stable No fever Vital Signs Date Time Temp Pulse Resp B/P (MAP) Pulse Ox O2 Delivery O2 Flow Rate FiO2 04/09/17 17:15 97.0 102 18 108/63 (78) 95 04/09/17 15:27 99 04/09/17 12:28 92 04/09/17 12:00 97.3 67 16 113/52 (72) 96 HEENT: Pupils round and reactive to light; normocephalic; atraumatic; no jaundice. Throat is clear. NECK: Neck is supple, no JVD, no lymphadenopathy. CHEST: Chest is clear to auscultation and percussion. CARDIAC: Regular rate and rhythm with no murmur gallop or rubs. ABDOMEN: Soft, nondistended, nontender; no hepatosplenomegaly; bowel sounds are present in all four quadrants. EXTREMITIES: No clubbing, cyanosis, or edema. SKIN: Normal; no rash; no jaundice. 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 Available Data (labs, X- Rays, Procedues) : Laboratory Tests Test 04/07/17 21:43 04/08/17 07:03 04/08/17 11:03 04/09/17 08:07 Total Creatine Kinase 55 U/L Troponin I LESS THAN 0.02 NG/ML White Blood Count 9.5 TH/MM3 9.0 TH/MM3 Red Blood Count 3.46 MIL/MM3 3.46 MIL/MM3 Hemoglobin 9.6 GM/DL 9.2 GM/DL 9.4 GM/DL Hematocrit 28.1 % 27.3 % 28.2 % Mean Corpuscular Volume 81.3 FL 81.7 FL Mean Corpuscular Hemoglobin 27.6 PG 27.2 PG Mean Corpuscular Hemoglobin Concent 34.0 % 33.3 % Red Cell Distribution Width 19.1 % 20.1 % Platelet Count 399 TH/MM3 419 TH/MM3 Mean Platelet Volume 7.6 FL 7.6 FL Neutrophils (%) (Auto) 67.3 % 60.5 % Lymphocytes (%) (Auto) 16.2 % 19.7 % Monocytes (%) (Auto) 8.8 % 10.3 % Eosinophils (%) (Auto) 6.8 % 8.6 % Basophils (%) (Auto) 0.9 % 0.9 % Neutrophils # (Auto) 6.4 TH/MM3 5.5 TH/MM3 Lymphocytes # (Auto) 1.5 TH/MM3 1.8 TH/MM3 Monocytes # (Auto) 0.8 TH/MM3 0.9 TH/MM3 Eosinophils # (Auto) 0.6 TH/MM3 0.8 TH/MM3 Basophils # (Auto) 0.1 TH/MM3 0.1 TH/MM3 CBC Comment DIFF FINAL DIFF FINAL Differential Comment Blood Urea Nitrogen 28 MG/DL 21 MG/DL Creatinine 1.00 MG/DL 0.91 MG/DL Random Glucose 87 MG/DL 88 MG/DL Total Protein 5.8 GM/DL 5.8 GM/DL Albumin 2.9 GM/DL 2.7 GM/DL Calcium Level 8.9 MG/DL 8.4 MG/DL Phosphorus Level 3.2 MG/DL 3.4 MG/DL Magnesium Level 1.8 MG/DL 1.9 MG/DL Alkaline Phosphatase 65 U/L 61 U/L Aspartate Amino Transf (AST/SGOT) 11 U/L 14 U/L Alanine Aminotransferase (ALT/SGPT) 18 U/L 17 U/L Total Bilirubin 0.8 MG/DL 0.5 MG/DL Sodium Level 136 MEQ/L 135 MEQ/L Potassium Level 3.7 MEQ/L 3.7 MEQ/L Chloride Level 101 MEQ/L 102 MEQ/L Carbon Dioxide Level 24.1 MEQ/L 24.4 MEQ/L Anion Gap 11 MEQ/L 9 MEQ/L Estimat Glomerular Filtration Rate 52 ML/MIN 58 ML/MIN Hemoglobin A1c 5.2 % Free Thyroxine 1.10 NG/DL Thyroid Stimulating Hormone 3rd Gen 1.290 uIU/ML ASSESSMENT/PLAN: symptomatic anemia -s/p egd -no active bleeding esophagitis -possible source of her anemia Recommendations continue ppi colonoscopy in am transfuse prn fu biopsy egd in 6 weeks It was a pleasure seeing Debby José. Thank you for this consult. Entered by: Anne Sellers MD Apr 09, 2017 17:46
[2017-04-09] MEDS ORDERED: BISACODYL EC 5 MG TABEC PO ONE (20:00)
[2017-04-09] MEDS: traZODone HCL 50 MG TAB PO SCH (21:00)
[2017-04-10] VITALS (10 sets, daily range): BP systolic 98–146; BP diastolic 55–75; PULSE 62–87; RESP 12–20; TEMP 96.3–98.5; O2SAT 91–99
[2017-04-10] MEDS: RESP: ALBUTEROL 2.5 MG/IPRATROPIUM 0.5 MG NEB (SCH) NEB ×4 (03:41→22:00)
[2017-04-10] MEDS ORDERED: BISACODYL EC 5 MG TABEC PO ONE (07:30)
[2017-04-10 09:42] LABS: AUTOMATED NEUTROPHIL # 5.3 TH/MM3 (1.8-7.7); BASOPHIL # 0.1 TH/MM3 (0-0.2); BASOPHIL % 0.8 % (0.0-2.0); EOSINOPHIL # 0.7 TH/MM3 (0-0.4); EOSINOPHIL % 8.3 % (0.0-4.0); HEMATOCRIT 29.4 % (35.0-46.0); HEMO FLAGS DIFF FINAL; LYMPH % 15.9 % (9.0-44.0); LYMPHOCYTE # 1.3 TH/MM3 (1.0-4.8); MEAN CELL VOLUME 82.3 FL (80.0-100.0); MEAN CORPUSCULAR HEMOGLOBIN 27.2 PG (27.0-34.0); MEAN CORPUSCULAR HGB CONC 33.1 % (32.0-36.0); MONO % 10.7 % (0.0-8.0); NEUT % 64.3 % (16.0-70.0); PLATELET COUNT 428 TH/MM3 (150-450); RED BLOOD COUNT 3.57 MIL/MM3 (4.00-5.30); RED CELL DISTRIBUTION WIDTH 19.7 % (11.6-17.2); WHITE BLOOD COUNT 8.2 TH/MM3 (4.0-11.0)
[2017-04-10 10:00] LABS: ANION GAP 9 MEQ/L (5-15); AST (GOT) 15 U/L (15-37); BICARBONATE 25.7 MEQ/L (21.0-32.0); BLOOD UREA NITROGEN 19 MG/DL (7-18); CHLORIDE 101 MEQ/L (98-107); GLOMERULAR FILTRATION RATE 65 ML/MIN (>89); MAGNESIUM 1.9 MG/DL (1.5-2.5); POTASSIUM 3.5 MEQ/L (3.5-5.1); SODIUM (NA) 136 MEQ/L (136-145)
[2017-04-10 10:02] LABS: ALT (GPT) 20 U/L (10-53)
[2017-04-10 10:03] LABS: ALKALINE PHOSPHATASE 61 U/L (45-117); TOTAL BILIRUBIN ADULT 0.4 MG/DL (0.2-1.0)
[2017-04-10] MEDS: PANTOPRAZOLE SOD 40 MG DELAYED RELEASE TAB PO SCH ×2 (11:06→21:27)
[2017-04-10] MEDS: SPIRONOLACTONE 25 MG TAB PO SCH (11:06)
[2017-04-10] MEDS: DOCUSATE SODIUM 50 MG/SENNA 8.6 MG TAB PO SCH ×2 (11:06→21:27)
[2017-04-10] MEDS: SODIUM CHLORIDE 0.9% FLUSH 10 ML FLUSH IV FLUSH SCH ×2 (11:06→21:29)
[2017-04-10] MEDS: guaiFENesin E.R. 600 MG TAB PO SCH ×2 (11:06→21:28)
[2017-04-10] MEDS: PRAVASTATIN SOD 40 MG TAB PO SCH (11:06)
[2017-04-10] MEDS: CARVEDILOL 3.125 MG TAB PO SCH ×2 (11:06→21:00)
[2017-04-10] MEDS: ENALAPRIL MALEATE 10 MG TAB PO SCH (11:07)
[2017-04-10] MEDS: HEPARIN SODIUM - SQ 10,000 UNITS/ML VIAL SQ SCH ×2 (14:54→23:33)
[2017-04-10] MEDS: cefTRIAXone INJ 1,000 MG in SODIUM CHLORIDE 0.9% INJ 100 ML IV SCH (17:58)
[2017-04-10] MEDS: traZODone HCL 50 MG TAB PO SCH (21:27)
[2017-04-11] VITALS (14 sets, daily range): BP systolic 75–131; BP diastolic 41–64; PULSE 73–94; RESP 18–20; TEMP 96–97.6; O2SAT 91–99
[2017-04-11] MEDS: RESP: ALBUTEROL 2.5 MG/IPRATROPIUM 0.5 MG NEB (SCH) NEB ×3 (04:00→15:56)
[2017-04-11] MEDS: CARVEDILOL 3.125 MG TAB PO SCH (08:47)
[2017-04-11] MEDS: SODIUM CHLORIDE 0.9% FLUSH 10 ML FLUSH IV FLUSH SCH ×2 (08:48→20:05)
[2017-04-11] MEDS: SPIRONOLACTONE 25 MG TAB PO SCH (08:48)
[2017-04-11] MEDS: guaiFENesin E.R. 600 MG TAB PO SCH ×2 (08:48→19:59)
[2017-04-11] MEDS: DOCUSATE SODIUM 50 MG/SENNA 8.6 MG TAB PO SCH ×2 (08:48→20:01)
[2017-04-11] MEDS: ENALAPRIL MALEATE 10 MG TAB PO SCH (08:48)
[2017-04-11] MEDS: PRAVASTATIN SOD 40 MG TAB PO SCH (08:48)
[2017-04-11] MEDS: PANTOPRAZOLE SOD 40 MG DELAYED RELEASE TAB PO SCH ×2 (08:48→19:59)
--- NOTE | 2017-04-11 11:12 | HHI.PR ---
Subjective Remarks Patient reports she is feeling okay. Awaiting to have colonoscopy. No shortness of breath or dizziness. Did okay with bowel prep. Objective Vitals Vital Signs Date Time Temp Pulse Resp B/P (MAP) Pulse Ox O2 Delivery O2 Flow Rate FiO2 04/11/17 11:12 99 04/11/17 04:00 76 04/11/17 04:00 96.8 94 18 106/61 (76) 95 04/11/17 00:00 97.6 74 18 107/64 (78) 94 04/11/17 00:00 77 04/10/17 20:40 75 04/10/17 20:00 97.8 76 19 98/63 (75) 93 04/10/17 16:32 97 04/10/17 16:00 96.3 74 14 100/59 (73) 95 04/10/17 16:00 87 04/10/17 12:00 97.5 79 12 107/60 (76) 95 04/10/17 12:00 75 I/O 04/10/17 04/10/17 04/10/17 04/11/17 04/11/17 04/11/17 07:00 15:00 23:00 07:00 15:00 23:00 Intake Total 300 ml Balance 300 ml Intake Oral 300 ml # Voids 4 4 1 2 # Bowel Movements 3 1 1 2 Result Diagram: 04/10/17 0830 04/10/17 0830 Imaging Last Impressions Head CT 04/07/17 0000 Signed Impressions: Service Date/Time: Friday, April 07, 2017 09:49 - CONCLUSION: No acute intracranial abnormality is identified. Shayan Russo MD Chest X-Ray 04/07/17 0000 Signed Impressions: Service Date/Time: Friday, April 07, 2017 09:32 - CONCLUSION: Underinflation with opacities at the lung bases stable from the prior study representing interstitial lung disease. Shayan Russo MD Objective Remarks GENERAL: Elderly and frail in no apparent distress. CARDIOVASCULAR: Normal rate and regular rhythm without murmurs, gallops, or rubs. RESPIRATORY: Good respiratory efforts. Breath sounds equal and clear to auscultation bilaterally. GASTROINTESTINAL: Abdomen soft, non-tender, non-distended. Normal active bowel sounds MUSCULOSKELETAL: Extremities without cyanosis, or edema. NEURO: Alert & Oriented to self and place. Some confusion about current situations. Easily reoriented by son at the bedside. Moves all ext x4 PSYCH: Appropriate mood and affect. Procedures EGD April [address] MAHER Esophagitis gastritis duodenitis and hiatal hernia and anemia A/P Problem List: (1) Upper GI bleed ICD Code: K92.2 - Gastrointestinal hemorrhage, unspecified (2) Hypertension ICD Code: I10 - Hypertension Status: Acute (3) Bronchitis ICD Code: J40 - Bronchitis Status: Acute (4) Hyperlipidemia ICD Code: E78.5 - Hyperlipidemia Status: Acute (5) Complicated urinary tract infection ICD Code: N39.0 - Urinary tract infection, site not specified Status: Acute (6) Altered mental status ICD Code: R41.82 - Altered mental status, unspecified Status: Acute (7) Anemia ICD Code: D64.9 - Anemia, unspecified Status: Acute (8) Reactive airway disease ICD Code: J45.909 - Reactive airway disease Status: Acute Assessment and Plan 86-year-old female with: Urinary tract infection with altered mental status: Urine grew Klebsiella. Continue Rocephin. Acute blood loss anemia probably secondary to GI bleeding. Patient is on daily aspirin. -GI following. Status post PRBC transfusion. Stable. -EGD showed esophagitis, gastritis, and duodenitis. Plan for colonoscopy today -Continue PPI Hypertension continue home medications Hyperlipidemia continue home medications Gait instability/Advanced age and multiple recent falls consult physical therapy occupational therapy Insomnia continue on trazodone Discharge Planning Family wants patient to return home. Likely will need home health. Problem Qualifiers (1) Altered mental status: Qualified Codes: R40.0 - Somnolence (2) Anemia: Qualified Codes: D64.9 - Anemia, unspecified Kenya Hess MD Apr 11, 2017 11:12
--- NOTE | 2017-04-11 12:06 | HHI.PR ---
Subjective Remarks Patient is an 86-year-old female coming from home presents emergency department for increased ALTERED mental status. According to her family she is normally alert and awake and has no mental problems at baseline. She lives with her family secondary to decreased mobility and uses a walker. They're concerned because over the past 2-3 day she's become increasingly altered and confused not recognizing people. She has had a fall which was unwitnessed and they found her on the ground a few days ago with her walker on top of her. Unclear as to whether she hit her head neck back chest or abdomen. Unclear which way she fell. The patient has no physical complaints now she is mildly altered and medicine mean she is slow to answer my questions and somewhat somnolent. No fevers reported by family members. Family does report that she's been having some cough and congestion over the past few days. She was found to be anemic. As well as found to have a urinary tract infection will be treated with Rocephin and will be transfused 2 units packed red blood cells 9 HOPEFULLY TO HAVE EGD TODAY LITTLE LESS CONFUSED TODAY THOUGHT SHE WAS AT [facility] [place]NEW LAURENT STATES YEAR IS 1917 patient had EGD yesterday with gastritis esophagitis duodenitis anemia and hiatal hernia Patient became confused yesterday was given some Ativan Today is more alert she knows the president is Laurent Knew the year was 2016 did not know which hospital she was in but states she was in the hospital Slow improvement in mentation 04-10 PATIENT HAD EGD ON WAS TO HAVE COLONOSCOPY ON 04-09 BUT DID NOT PREP WELL WAS TO HOPEFULLY HAVE COLONOSCOPY ON THE BUT WAS TO BE PREPPED ON THE AGAIN HAS BEEN HAVING CONFUSION AT [facility] NOTE WAS ORIGINALLY DONE ON 04-10 BUT APPEARS TO HAVE NOT SAVED WELL THIS IS A REPLICATION OF THAT NOTE Objective Vitals Vital Signs Date Time Temp Pulse Resp B/P (MAP) Pulse Ox O2 Delivery O2 Flow Rate FiO2 04/11/17 11:12 99 04/11/17 04:00 76 04/11/17 04:00 96.8 94 18 106/61 (76) 95 04/11/17 00:00 97.6 74 18 107/64 (78) 94 04/11/17 00:00 77 04/10/17 20:40 75 04/10/17 20:00 97.8 76 19 98/63 (75) 93 04/10/17 16:32 97 04/10/17 16:00 96.3 74 14 100/59 (73) 95 04/10/17 16:00 87 04/10/17 12:00 97.5 79 12 107/60 (76) 95 04/10/17 12:00 75 I/O 04/10/17 04/10/17 04/10/17 04/11/17 04/11/17 04/11/17 07:00 15:00 23:00 07:00 15:00 23:00 Intake Total 300 ml Balance 300 ml Intake Oral 300 ml # Voids 4 4 1 2 # Bowel Movements 3 1 1 2 Result Diagram: 04/10/1782904/10/1730 Other Results Laboratory Tests Test 04/09/17 08:07 04/10/17 08:30 White Blood Count 9.0 TH/MM3 8.2 TH/MM3 Red Blood Count 3.46 MIL/MM3 3.57 MIL/MM3 Hemoglobin 9.4 GM/DL 9.7 GM/DL Hematocrit 28.2 % 29.4 % Mean Corpuscular Volume 81.7 FL 82.3 FL Mean Corpuscular Hemoglobin 27.2 PG 27.2 PG Mean Corpuscular Hemoglobin Concent 33.3 % 33.1 % Red Cell Distribution Width 20.1 % 19.7 % Platelet Count 419 TH/MM3 428 TH/MM3 Mean Platelet Volume 7.6 FL 7.3 FL Neutrophils (%) (Auto) 60.5 % 64.3 % Lymphocytes (%) (Auto) 19.7 % 15.9 % Monocytes (%) (Auto) 10.3 % 10.7 % Eosinophils (%) (Auto) 8.6 % 8.3 % Basophils (%) (Auto) 0.9 % 0.8 % Neutrophils # (Auto) 5.5 TH/MM3 5.3 TH/MM3 Lymphocytes # (Auto) 1.8 TH/MM3 1.3 TH/MM3 Monocytes # (Auto) 0.9 TH/MM3 0.9 TH/MM3 Eosinophils # (Auto) 0.8 TH/MM3 0.7 TH/MM3 Basophils # (Auto) 0.1 TH/MM3 0.1 TH/MM3 CBC Comment DIFF FINAL DIFF FINAL Differential Comment Blood Urea Nitrogen 21 MG/DL 19 MG/DL Creatinine 0.91 MG/DL 0.83 MG/DL Random Glucose 88 MG/DL 93 MG/DL Total Protein 5.8 GM/DL 5.8 GM/DL Albumin 2.7 GM/DL 2.9 GM/DL Calcium Level 8.4 MG/DL 9.0 MG/DL Phosphorus Level 3.4 MG/DL 3.3 MG/DL Magnesium Level 1.9 MG/DL 1.9 MG/DL Alkaline Phosphatase 61 U/L 61 U/L Aspartate Amino Transf (AST/SGOT) 14 U/L 15 U/L Alanine Aminotransferase (ALT/SGPT) 17 U/L 20 U/L Total Bilirubin 0.5 MG/DL 0.4 MG/DL Sodium Level 135 MEQ/L 136 MEQ/L Potassium Level 3.7 MEQ/L 3.5 MEQ/L Chloride Level 102 MEQ/L 101 MEQ/L Carbon Dioxide Level 24.4 MEQ/L 25.7 MEQ/L Anion Gap 9 MEQ/L 9 MEQ/L Estimat Glomerular Filtration Rate 58 ML/MIN 65 ML/MIN Imaging Last Impressions Head CT 04/07/17 0000 Signed Impressions: Service Date/Time: Friday, April 07, 2017 09:49 - CONCLUSION: No acute intracranial abnormality is identified. Shayan Russo MD Chest X-Ray 04/07/17 0000 Signed Impressions: Service Date/Time: Friday, April 07, 2017 09:32 - CONCLUSION: Underinflation with opacities at the lung bases stable from the prior study representing interstitial lung disease. Shayan Russo MD Objective Remarks GENERAL: This is a well-nourished, well-developed patient, in no apparent distress. SKIN: No rashes, ecchymoses or lesions. Cool and dry. HEAD: Atraumatic. Normocephalic. No temporal or scalp tenderness. EYES: Pupils equal round and reactive. Extraocular motions intact. No scleral icterus. No injection or drainage. ENT: Nose without bleeding, purulent drainage or septal hematoma. Throat without erythema, tonsillar hypertrophy or exudate. Uvula midline. Airway patent. Nose midline NECK: Trachea midline. No JVD or lymphadenopathy. Supple, nontender, no meningeal signs. CARDIOVASCULAR: Regular rate and rhythm without murmurs, gallops, or rubs. S1- S2 no S3 or S4 no heave or thrill or rub RESPIRATORY: Clear to auscultation. Breath sounds equal bilaterally. No wheezes , rales, or rhonchi. GASTROINTESTINAL: Abdomen soft, non-tender, nondistended. No hepato-splenomegaly , or palpable masses. No guarding. MUSCULOSKELETAL: Extremities without clubbing, cyanosis, or edema. No joint tenderness, effusion, or edema noted. No calf tenderness. Negative Homans sign bilaterally. NEUROLOGICAL: Awake and alert. Cranial nerves II through XII intact. Motor and sensory grossly within normal limits. 4 out of 5 muscle strength in all muscle groups. Normal speech. Insight and judgment of her abnormal Mood and behavior somewhat appropriate Procedures EGD April [address] MAHER Esophagitis gastritis duodenitis and hiatal hernia and anemia Medications and IVs Current Medications IV Flush (NS Flush) 2 ml UNSCH PRN IV FLUSH FLUSH AFTER USING IV ACCESS; Start 04/07/17 at 08:00; Stop 04/07/17 at 12:44; Status DC Sodium Chloride 250 ml @ 15 mls/hr ONCE ONCE IV Last administered on 11:26; Start 04/07/17 at 09:30; Stop 04/07/17 at 13:26; Status DC Ceftriaxone Sodium 1000 mg/ Sodium Chloride 100 ml @ 200 mls/hr ONCE ONCE IV Last administered on 04/07/17 16:11; Start 04/07/17 at 10:30; Stop 04/07/17 at 10: 59; Status DC Acetaminophen/ Codeine Phosphate (Tylenol - Codeine 120-12 Liq) 10 ml Q6H PRN PO cough; Start 04/07/17 at 11:30 Carvedilol (Coreg) 3.125 mg BID PO Last administered on 04/11/17 08:47; Start 04/07/17 at 21:00 Pantoprazole Sodium (Protonix) 40 mg DAILY PO ; Start 04/08/17 at 09:00; Stop at 09:00; Status DC Pravastatin Sodium (Pravachol) 40 mg DAILY PO Last administered on 04/11/17 08 :48; Start 04/08/17 at 09:00 Spironolactone (Aldactone) 25 mg DAILY PO Last administered on 04/11/17 08:48 ; Start 04/08/17 at 09:00 Trazodone HCl (Desyrel) 50 mg HS PO Last administered on 04/10/17 21:27; Start 04/07/17 at 21:00 Enalapril Maleate (Vasotec) 20 mg DAILY PO Last administered on 04/11/17 08:48 ; Start 04/08/17 at 09:00 Non-Formulary Medication 650 mg DAILY PO ; Start 04/08/17 at 09:00; Stop at 09:00; Status DC Sodium Chloride 250 ml @ 15 mls/hr ONCE ONCE IV Last administered on 13:00; Start 04/07/17 at 13:00; Stop 04/08/17 at 05:39; Status DC Acetaminophen (Tylenol) 650 mg Q4H PRN PO SEE LABEL COMMENTS; Start 04/07/17 at 13:00; Stop 04/08/17 at 12:59; Status DC Diphenhydramine HCl (Benadryl) 25 mg Q4H PRN PO SEE LABEL COMMENTS; Start at 13:00; Stop 04/08/17 at 12:59; Status DC Furosemide (Lasix Inj) 20 mg ONCE ONCE IV Last administered on 04/07/17 16:12 ; Start 04/07/17 at 14:00; Stop 04/07/17 at 14:01; Status DC Sodium Chloride (NS Flush) 2 ml UNSCH PRN IV FLUSH FLUSH AFTER USING IV ACCESS ; Start 04/07/17 at 11:30 Sodium Chloride (NS Flush) 2 ml BID IV FLUSH Last administered on 04/11/17 08: 48; Start 04/07/17 at 21:00 Acetaminophen (Tylenol) 650 mg Q4H PRN PO TEMP > 100.4; Start 04/07/17 at 11:30 Ondansetron HCl (Zofran Inj) 4 mg Q6H PRN IVP NAUSEA OR VOMITING; Start at 11:30 Prochlorperazine (Compazine Supp) 25 mg Q12H PRN RECTAL NAUSEA OR VOMITING; Start 04/07/17 at 11:30 Heparin Sodium (Porcine) (Heparin Inj) 5,000 units Q12H SQ Last administered on 04/09/17 02:07; Start 04/07/17 at 14:00 Acetaminophen (Tylenol) 650 mg Q6H PRN PO PAIN SCALE 1 TO 2 Last administered on 04/11/17 10:54; Start 04/07/17 at 11:30 Morphine Sulfate (Morphine Inj) 2 mg Q3H PRN IV Pain 3-5; if unable to take PO ; Start 04/07/17 at 11:30 Morphine Sulfate (Morphine Inj) 4 mg Q3H PRN IV Pain 6-10;if unable to take PO ; Start 04/07/17 at 11:30 Tramadol HCl (Ultram) 50 mg Q4H PRN PO PAIN SCALE 3 TO 5; Start 04/07/17 at 11: 30 Tramadol HCl (Ultram) 100 mg Q4H PRN PO PAIN SCALE 6 TO 10; Start 04/07/17 at 11 :30 Naloxone HCl (Narcan Inj) 0.4 mg UNSCH PRN IV SEE LABEL COMMENTS; Start at 11:30 Senna/Docusate Sodium (Elisa-Colace) 1 tab BID PO Last administered on 21:27; Start 04/07/17 at 21:00 Magnesium Hydroxide (Milk Of Magnesia Liq) 30 ml Q12H PRN PO MILD - MODERATE CONSTIPATION; Start 04/07/17 at 11:30 Sennosides (Senokot) 17.2 mg Q12H PRN PO MODERATE - SEVERE CONSTIPATION; Start 04/07/17 at 11:30 Bisacodyl (Dulcolax Supp) 10 mg DAILY PRN RECTAL SEVERE CONSITIPATION; Start at 11:30 Lactulose (Lactulose Liq) 30 ml DAILY PRN PO SEVERE CONSITIPATION; Start at 11:30 Ceftriaxone Sodium 1000 mg/ Sodium Chloride 100 ml @ 200 mls/hr Q24H IV Last administered on 04/10/17 17:58; Start 04/08/17 at 16:00 Pantoprazole Sodium (Protonix) 40 mg BID PO Last administered on 04/10/17 21: 27; Start 04/07/17 at 21:00 Guaifenesin (Mucinex Er) 600 mg BID PO Last administered on 04/11/17 08:48; Start 04/07/17 at 14:30 Albuterol/ Ipratropium (Duoneb Neb) 1 ampule Q6HR NEB NEB Last administered on 04/11/17 11:11; Start 04/07/17 at 16:00 Albuterol/ Ipratropium (Duoneb Neb) 1 ampule Q4HR NEB PRN NEB SHORTNESS OF BREATH; Start 04/07/17 at 14:30 Miscellaneous Information ALL NURSING DEPARTME... UNSCH PRN .XX SEE LABEL COMMENTS; Start 04/08/17 at 12:18; Stop 04/09/17 at 12:17; Status DC Propofol (Diprivan 200 Mg/20 ml Inj) 60 mg STK-MED ONCE IV ; Start 04/08/17 at 12:08; Stop 04/08/17 at 12:57; Status DC Lorazepam (Ativan) 0.25 mg Q8H PRN PO ANXIETY Last administered on 04/08/17 17 :19; Start 04/08/17 at 16:00 Miscellaneous (Pill Splitter) 1 ea UNSCH PRN OTHER SEE LABEL COMMENTS; Start at 16:15 Magnesium Citrate (Citroma Liq) 300 ml ONCE ONCE PO Last administered on 14:22; Start 04/09/17 at 10:00; Stop 04/09/17 at 10:01; Status DC Magnesium Citrate (Citroma Liq) 300 ml ONCE ONCE PO Last administered on 16:17; Start 04/09/17 at 16:00; Stop 04/09/17 at 16:01; Status DC Bisacodyl (Dulcolax Ec) 20 mg ONCE ONCE PO Last administered on 04/09/17 22: 45; Start 04/09/17 at 20:00; Stop 04/09/17 at 20:01; Status DC Bisacodyl (Dulcolax Ec) 20 mg ONCE ONCE PO Last administered on 04/10/17 11: 05; Start 04/10/17 at 07:30; Stop 04/10/17 at 07:31; Status DC A/P Problem List: (1) Upper GI bleed ICD Code: K92.2 - Gastrointestinal hemorrhage, unspecified (2) Hypertension ICD Code: I10 - Hypertension Status: Acute (3) Bronchitis ICD Code: J40 - Bronchitis Status: Acute (4) Hyperlipidemia ICD Code: E78.5 - Hyperlipidemia Status: Acute (5) Complicated urinary tract infection ICD Code: N39.0 - Urinary tract infection, site not specified Status: Acute (6) Altered mental status ICD Code: R41.82 - Altered mental status, unspecified Status: Acute (7) Anemia ICD Code: D64.9 - Anemia, unspecified Status: Acute (8) Reactive airway disease ICD Code: J45.909 - Reactive airway disease Status: Acute Assessment and Plan Urinary tract infection with altered mental status will treat with Rocephin IV daily Anemia possibly due to upper GI bleed since patient takes chronic 2 aspirin daily We'll transfuse will continue on Protonix will consult GI We'll get a Hemoccult stools Status post EGD April 08 which showed esophagitis gastritis duodenitis anemia and a hiatal hernia Hypertension continue home medications Hyperlipidemia continue home medications History of possible ulcers continue on PPI CONTINUE PPI WITH EGD RESULTS Gait instability consult physical therapy occupational therapy Insomnia continue on trazodone Advanced age and multiple recent falls FOR EGD TODAY 9-10 esophagitis gastritis duodenitis anemia and a hiatal hernia CONTINUE ANTIBIOTICS AND HAS BEEN TRANSFUSED Continue physical therapy and occupational therapy if more lucid hopefully tomorrow home versus SNF Check a.m. labs WAS TO HAVE COLONOSCOPY IF COULD GET GOOD PREP IF GI ABLE TO DO AM LABS Problem Qualifiers (1) Altered mental status: Qualified Codes: R40.0 - Somnolence (2) Anemia: Qualified Codes: D64.9 - Anemia, unspecified Jamaal Hernandez DO Apr 11, 2017 12:06
[2017-04-11] MEDS ORDERED: PROPOFOL 200 MG/20 ML AMP IV PUSH ONE (13:38)
--- NOTE | 2017-04-11 13:42 | GIPROC ---
[facility] [address] [facility]. [facility], [address] COLONOSCOPY PROCEDURE REPORT EXAM DATE: 04/11/2017 PATIENT NAME: Debby José MR #: [id number] BIRTHDATE: 1930 ENDOSCOPIST: Anne Gilliland MD ORDER #: [id number] BALER OPERATOR: Patricio Joiner and Phani Garcia STATUS: inpatient INDICATIONS: The patient is a 86 yr old female here for a colonoscopy due to anemia PROCEDURE PERFORMED: Colonoscopy, diagnostic MEDICATIONS: None and Per Anesthesia. PREP QUALITY: fair PREP TYPE:Other: ESTIMATED BLOOD LOSS: None CONSENT: The patient understands the risks and benefits of the procedure and understands that these risks include, but are not limited to: sedation, allergic reaction, infection, perforation and/or bleeding. Alternative means of evaluation and treatment include, among others: physical exam, x-rays, and/or surgical intervention. The patient elects to proceed with this endoscopic procedure. medical equipment was checked for proper function. Hand hygiene and appropriate measures for infection prevention was taken. After the risks, benefits and alternatives of the procedure were thoroughly explained, Informed consent was verified, confirmed and timeout was successfully executed by the treatment team. A digital exam revealed external hemorrhoids The Pentax [id number] endoscope was introduced through the anus and advanced to the cecum, which was identified by both the appendix and ileocecal valve. The instrument was then slowly withdrawn as the colon was fully examined. COLON FINDINGS: Diverticulosis sigmoid,descending. Retroflexed views revealed internal hemorrhoids and Retroflexed views revealed medium internal hemorrhoids The scope was then completely withdrawn from the patient and the procedure terminated. PROCEDURE WITHDRAWAL TIME:6minutes ADVERSE EVENTS: There were no complications. IMPRESSIONS: 1. Diverticulosis sigmoid,descending 2. Retroflexed views revealed internal hemorrhoids 3. Retroflexed views revealed medium internal hemorrhoids 4. Revealed external hemorrhoids RECOMMENDATIONS: 1. Benefiber 2 tsp daily 2. Probiotics from any [employer] or health food store 3. High fiber diet 4. Ok to dc home from gi point RECALL: Colonoscopy prn Anne Gilliland MD eSigned: Anne Gilliland MD 04/11/2017 1:42 PM cc: PATIENT NAME: Debby José MR#: [id number]
[2017-04-11 14:45] LABS: AUTOMATED NEUTROPHIL # 4.8 TH/MM3 (1.8-7.7); BASOPHIL # 0.1 TH/MM3 (0-0.2); BASOPHIL % 0.9 % (0.0-2.0); EOSINOPHIL # 0.5 TH/MM3 (0-0.4); HEMATOCRIT 31.2 % (35.0-46.0); HEMO FLAGS DIFF FINAL; LYMPHOCYTE # 1.1 TH/MM3 (1.0-4.8); MEAN CELL VOLUME 82.6 FL (80.0-100.0); MEAN CORPUSCULAR HEMOGLOBIN 26.1 PG (27.0-34.0); MEAN CORPUSCULAR HGB CONC 31.6 % (32.0-36.0); MONO % 9.7 % (0.0-8.0); NEUT % 67.4 % (16.0-70.0); PLATELET COUNT 444 TH/MM3 (150-450); RED BLOOD COUNT 3.78 MIL/MM3 (4.00-5.30); RED CELL DISTRIBUTION WIDTH 19.9 % (11.6-17.2); WHITE BLOOD COUNT 7.2 TH/MM3 (4.0-11.0)
[2017-04-11 15:11] LABS: ALT (GPT) 33 U/L (10-53); ANION GAP 8 MEQ/L (5-15); AST (GOT) 33 U/L (15-37); BICARBONATE 26.2 MEQ/L (21.0-32.0); BLOOD UREA NITROGEN 16 MG/DL (7-18); CHLORIDE 100 MEQ/L (98-107); GLOMERULAR FILTRATION RATE 62 ML/MIN (>89); POTASSIUM 3.7 MEQ/L (3.5-5.1); SODIUM (NA) 134 MEQ/L (136-145)
[2017-04-11 15:24] LABS: ALKALINE PHOSPHATASE 63 U/L (45-117); TOTAL BILIRUBIN ADULT 0.4 MG/DL (0.2-1.0)
[2017-04-11] MEDS: cefTRIAXone INJ 1,000 MG in SODIUM CHLORIDE 0.9% INJ 100 ML IV SCH (16:22)
[2017-04-11] MEDS: HEPARIN SODIUM - SQ 10,000 UNITS/ML VIAL SQ SCH (16:22)
[2017-04-11] MEDS ORDERED: SODIUM CHLORID 0.9% 500 ML INJ 500 ML IV ONE (17:00)
[2017-04-11] MEDS ORDERED: SODIUM CHLOR 0.9% 1000 ML INJ 1,000 ML IV ONE (17:45)
[2017-04-12] VITALS: BP 135/60; PULSE 83; RESP 18; TEMP 96.6; O2SAT 94
[2017-04-12] MEDS: HEPARIN SODIUM - SQ 10,000 UNITS/ML VIAL SQ SCH (03:22)
[2017-04-12 04:00] VITALS: BP 94/53; PULSE 81; RESP 17; TEMP 96.6; O2SAT 93
[2017-04-12 07:32] VITALS: PULSE 82
[2017-04-12] MEDS: PANTOPRAZOLE SOD 40 MG DELAYED RELEASE TAB PO SCH (08:44)
[2017-04-12] MEDS: PRAVASTATIN SOD 40 MG TAB PO SCH (08:44)
[2017-04-12] MEDS: guaiFENesin E.R. 600 MG TAB PO SCH (08:45)
[2017-04-12] MEDS ORDERED: ULTR50TA5 PO (08:45)
[2017-04-12] MEDS: DOCUSATE SODIUM 50 MG/SENNA 8.6 MG TAB PO SCH (08:45)
[2017-04-12] MEDS: SODIUM CHLORIDE 0.9% FLUSH 10 ML FLUSH IV FLUSH SCH (08:46)
--- NOTE | 2017-04-12 08:46 | HHI.DCPOC ---
Discharge Care Plan Diagnosis: (1) GI bleeding (2) Complicated urinary tract infection (3) Altered mental status (4) Anemia (5) Hypertension Goals to Promote Your Health * To prevent worsening of your condition and complications * To maintain your health at the optimal level Directions to Meet Your Goals Take your medications as prescribed Follow your dietary instruction Follow activity as directed Keep your appointments as scheduled Take your immunizations and boosters as scheduled If your symptoms worsen call your PCP, if no PCP go to Urgent Care Center or Emergency Room Smoking is Dangerous to Your Health. Avoid second hand smoke Call the 24-hour hour crisis hotline for domestic abuse at Kenya Hess MD Apr 12, 2017 08:46
--- NOTE | 2017-04-12 08:46 | HHI.DS ---
Discharge Summary Admission Date Apr 07, 2017 at 11:15 Discharge Date: Apr 12, 2017 Admitting Diagnosis Altered mental status, UTI, Anemia (1) Upper GI bleed ICD Code: K92.2 - Gastrointestinal hemorrhage, unspecified (2) Hypertension ICD Code: I10 - Hypertension Status: Acute (3) Bronchitis ICD Code: J40 - Bronchitis Status: Acute (4) Hyperlipidemia ICD Code: E78.5 - Hyperlipidemia Status: Acute (5) Complicated urinary tract infection ICD Code: N39.0 - Urinary tract infection, site not specified Status: Acute (6) Altered mental status ICD Code: R41.82 - Altered mental status, unspecified Status: Acute (7) Anemia ICD Code: D64.9 - Anemia, unspecified Status: Acute (8) Reactive airway disease ICD Code: J45.909 - Reactive airway disease Status: Acute Procedures EGD April [address] MAHER Esophagitis gastritis duodenitis and hiatal hernia and anemia Brief History - From Admission HPI from the admitting physician Patient is an 86-year-old female coming from home presents emergency department for increased ALTERED mental status. According to her family she is normally alert and awake and has no mental problems at baseline. She lives with her family secondary to decreased mobility and uses a walker. They're concerned because over the past 2-3 day she's become increasingly altered and confused not recognizing people. She has had a fall which was unwitnessed and they found her on the ground a few days ago with her walker on top of her. Unclear as to whether she hit her head neck back chest or abdomen. Unclear which way she fell. The patient has no physical complaints now she is mildly altered and medicine mean she is slow to answer my questions and somewhat somnolent. No fevers reported by family members. Family does report that she's been having some cough and congestion over the past few days. She was found to be anemic. As well as found to have a urinary tract infection will be treated with Rocephin and will be transfused 2 units packed red blood cells CBC/BMP: 04/11/17 1430 04/11/17 1430 Significant Findings Laboratory Tests Test 04/10/17 08:30 04/11/17 14:30 Red Blood Count 3.57 MIL/MM3 (4.00-5.30) 3.78 MIL/MM3 (4.00-5.30) Hemoglobin 9.7 GM/DL (11.6-15.3) 9.9 GM/DL (11.6-15.3) Hematocrit 29.4 % (35.0-46.0) 31.2 % (35.0-46.0) Red Cell Distribution Width 19.7 % (11.6-17.2) 19.9 % (11.6-17.2) Monocytes (%) (Auto) 10.7 % (0.0-8.0) 9.7 % (0.0-8.0) Eosinophils (%) (Auto) 8.3 % (0.0-4.0) 7.0 % (0.0-4.0) Eosinophils # (Auto) 0.7 TH/MM3 (0-0.4) 0.5 TH/MM3 (0-0.4) Blood Urea Nitrogen 19 MG/DL (7-18) Total Protein 5.8 GM/DL (6.4-8.2) 5.9 GM/DL (6.4-8.2) Albumin 2.9 GM/DL (3.4-5.0) 2.9 GM/DL (3.4-5.0) Estimat Glomerular Filtration Rate 65 ML/MIN (>89) 62 ML/MIN (>89) Mean Corpuscular Hemoglobin 26.1 PG (27.0-34.0) Mean Corpuscular Hemoglobin Concent 31.6 % (32.0-36.0) Mean Platelet Volume 6.7 FL (7.0-11.0) Sodium Level 134 MEQ/L (136-145) Imaging Last Impressions Head CT 04/07/17 0000 Signed Impressions: Service Date/Time: Friday, April 07, 2017 09:49 - CONCLUSION: No acute intracranial abnormality is identified. Shayan Russo MD Chest X-Ray 04/07/17 0000 Signed Impressions: Service Date/Time: Friday, April 07, 2017 09:32 - CONCLUSION: Underinflation with opacities at the lung bases stable from the prior study representing interstitial lung disease. Shayan Russo MD PE at Discharge GENERAL: Elderly and frail in no apparent distress. CARDIOVASCULAR: Normal rate and regular rhythm without murmurs, gallops, or rubs. RESPIRATORY: Good respiratory efforts. Breath sounds equal and clear to auscultation bilaterally. GASTROINTESTINAL: Abdomen soft, non-tender, non-distended. Normal active bowel sounds MUSCULOSKELETAL: Extremities without cyanosis, or edema. NEURO: Alert & Oriented to self and place. Some confusion about current situations. Easily reoriented by son at the bedside. Moves all ext x4 PSYCH: Appropriate mood and affect. Pt update on day of discharge No acute events overnight. Patient doing ok. Hospital Course 86-year-old female admitted and treated for the following: Urinary tract infection with altered mental status: Urine grew Klebsiella. Patient was treated with Rocephin. Acute blood loss anemia probably secondary to GI bleeding. Patient is on daily aspirin. -GI following. Status post PRBC transfusion. Stable. -EGD showed esophagitis, gastritis, and duodenitis. Colonoscopy showed Diverticulosis and hemorrhoids. -Continue PPI and high fiber diet per GI recs. Hypertension continue home medications Hyperlipidemia continue home medications Gait instability/Advanced age and multiple recent falls consult physical therapy occupational therapy Insomnia continue on trazodone Pt Condition on Discharge: Good Discharge Disposition: Discharge Home Discharge Time: > 30 minutes Discharge Instructions DIET: Follow Instructions for: High Fiber Diet Activities you can perform: Regular-No Restrictions Follow up Referrals: PCP Follow-up New Medications: Tramadol (Ultram) 50 Mg Tab 50 MG PO Q4H PRN for Severe pain, #15 TAB Continued Medications: Nutritional Supplements (Equate) Strawber Liq 650 MG PO DAILY for PAIN AND/OR AGITATION Pantoprazole Sod (Protonix) 40 Mg Tabdr 40 MG PO DAILY Pravastatin Sodium (Pravastatin Sodium) 40 Mg Tab 40 MG PO DAILY, TAB Trazodone Hcl (Trazodone Hcl) 50 Mg Tab 50 MG PO HS, TAB Discontinued Medications: Acetaminophen/Codeine (Tylenol / Codeine Elix Per 5 Ml) 120 Mg/12 Mg Elix 10 ML PO Q6H PRN for cough Carvedilol 3.125 mg (Coreg 3.125 mg) 3.125 Mg Tab 3.125 MG PO BID, TAB Enalapril Maleate (Vasotec) 20 Mg Tab 20 MG PO DAILY Prednisone (Deltasone 20 Mg Tab) 20 Mg Tab 20 MG PO BID for 3 Days, TAB Prednisone (Deltasone 20 Mg Tab) 20 Mg Tab 20 MG .ROUTE DAILY for 4 Days, TAB Spironolactone (Spironolactone) 25 Mg Tab 25 MG PO DAILY, TAB Kenya Hess MD Apr 12, 2017 08:46
[2017-04-12 08:57] VITALS: BP 155/72; PULSE 63; RESP 2; TEMP 96.5; O2SAT 95
--- NOTE | 2017-04-12 10:10 | HHI.FF ---
Face to Face Verification Diagnosis: (1) GI bleeding (2) Hypertension (3) Complicated urinary tract infection (4) Altered mental status Physical Therapy Order: Evaluate and Treat, Improve ambulation, Strength and gait training Home Health Nursing Order: Medical education Medication education-adverse effect Nursing assessment with vital signs I have seen patient Debby José on 04/12/17. My clinical findings support the need for the requested home health care services because: Deconditioned w/ increased weakness Impaired cognition/judgement I certify that my clinical findings support that this patient is homebound because: Unsteady gait/balance Poor cardiac reserve Kenya Hess MD Apr 12, 2017 10:10
== END 2017-04-12 11:51 | disposition home or self-care (01) | DRG 690 ==
LOC: NEPE 07:00 → NEDA 11:15 → HOCA 12:21
PROVIDERS: ADMIT Family Medicine; ATTEND Family Medicine
PROC: 30233N1 Transfusion of Nonautologous Red Blood Cells into Peripheral Vein, Percutaneous Approach (ICD-10-PCS; principal; 2017-04-07)
PROC: 0DB98ZX Excision of Duodenum, Via Natural or Artificial Opening Endoscopic, Diagnostic (ICD-10-PCS; 2017-04-08)
PROC: 0DB78ZX Excision of Stomach, Pylorus, Via Natural or Artificial Opening Endoscopic, Diagnostic (ICD-10-PCS; 2017-04-08)
PROC: 0DB38ZX Excision of Lower Esophagus, Via Natural or Artificial Opening Endoscopic, Diagnostic (ICD-10-PCS; 2017-04-08)
PROC: 0DJD8ZZ Inspection of Lower Intestinal Tract, Via Natural or Artificial Opening Endoscopic (ICD-10-PCS; 2017-04-11)
DX: N39.0 Urinary tract infection, site not specified (principal); K92.2 Gastrointestinal hemorrhage, unspecified; I50.9 Heart failure, unspecified; J44.9 Chronic obstructive pulmonary disease, unspecified; I13.0 Hypertensive heart and chronic kidney disease with heart failure and stage 1 through stage 4 chronic kidney disease, or unspecified chronic kidney disease; D62 Acute posthemorrhagic anemia; E78.5 Hyperlipidemia, unspecified; G47.00 Insomnia, unspecified; K21.0 Gastro-esophageal reflux disease with esophagitis; K29.70 Gastritis, unspecified, without bleeding; K29.80 Duodenitis without bleeding; K44.9 Diaphragmatic hernia without obstruction or gangrene; N18.9 Chronic kidney disease, unspecified; R29.6 Repeated falls; M19.90 Unspecified osteoarthritis, unspecified site; R26.9 Unspecified abnormalities of gait and mobility; K57.30 Diverticulosis of large intestine without perforation or abscess without bleeding; K64.4 Residual hemorrhoidal skin tags; K64.8 Other hemorrhoids; Z87.11 Personal history of peptic ulcer disease; Z79.82 Long term (current) use of aspirin
CPT/HCPCS: 36430; 70450; 71010; 80053; 81001; 82550; 83036; 83605; 83735; 84100; 84439; 84443; 84484; 85014; 85018; 85025; 86850; 86900; 86901; 86920; 87040; 87077; 87086; 87186; 88305; 88312; 93005; 94640; 94664; 99285; J0696; J1644; J1940; J7040; J7050; P9016

== ENCOUNTER 2017-06-03 22:53 | Observation (INO) | payer MEDICARE, OTHER ==
[~2017-06-03 22:53] MED LIST changes: -CARV3.125 PO; -ENAL20TA81 PO; -PRED20; -PRED20 PO; -SPIR25TA PO; +TRAM50 PO; -TYLCOD5S PO
--- NOTE | 2017-06-03 23:25 | PD ---
HPI Chief Complaint: altered mental status and shortness of breath Time Seen by Provider: 23:23 Travel History International Travel<30 days: No Contact w/Intl Traveler<30days: No Traveled to known affect area: No History of Present Illness HPI Patient is a 86-year-old female who lives with her son and she apparently was become more lethargic and short of breath over the last few days when the paramedics arrived she says that she is altered mental status and she is not breathing as well as she has she has a history of of CHF paramedics gave her 3 sublingual nitros and 80 IV of Lasix PFSH Past Medical History Arthritis: Yes Asthma: No Blood Disorders: No Heart Rhythm Problems: No Cancer: No Cardiovascular Problems: Yes High Cholesterol: Yes Chest Pain: No Congestive Heart Failure: Yes Diminished Hearing: No Endocrine: No Gastrointestinal Disorders: No Genitourinary: Yes (CKD) Hypertension: Yes Immune Disorder: No Musculoskeletal: Yes (ARTHRITIS) Neurologic: No Psychiatric: No Reproductive: No Respiratory: No Immunizations Current: Yes Sleep Apnea: No Ulcer: Yes Menopausal: Yes : 3 Para: 3 Past Surgical History Abdominal Surgery: Yes Cardiac Surgery: No Ear Surgery: No Endocrine Surgery: No Eye Surgery: No Genitourinary Surgery: No Gynecologic Surgery: Yes Hysterectomy: Yes Oral Surgery: No Pacemaker: No Thoracic Surgery: No Other Surgery: Yes Social History Alcohol Use: No Tobacco Use: No Substance Use: No Allergies-Medications (Allergen,Severity, Reaction): Coded Allergies: No Known Allergies (Verified , 11/25/13) Reported Meds & Prescriptions Reported Meds & Active Scripts Active Reported Pantoprazole (Pantoprazole Sodium) 40 Mg Tab 40 Mg PO DAILY Ferrous Sulfate 325 Mg (65 Mg Iron) Tablet 325 Mg PO DAILY Enalapril (Enalapril Maleate) 5 Mg Tab 5 Mg PO DAILY Hydrochlorothiazide 25 Mg Tab 25 Mg PO DAILY Pravastatin 80 Mg Tab 100 Mg PO HS Review of Systems Except as stated in HPI: all other systems reviewed are Neg (when asked how she feels she said I feel strange denies pain denies shortness of breath) Physical Exam Narrative GENERAL: [-]patient is mildly confused but awake alert SKIN: Focused skin assessment warm/dry. HEAD: Atraumatic. Normocephalic. EYES: Pupils equal and round. No scleral icterus. No injection or drainage. ENT: No nasal bleeding or discharge. Mucous membranes pink and moist. NECK: Trachea midline. No JVD. CARDIOVASCULAR: Regular rate and rhythm. No murmur appreciated. BP is 80/40 then rebounds to 112/50 RESPIRATORY: No accessory muscle use. Clear to auscultation. Breath sounds equal bilaterally. GASTROINTESTINAL: Abdomen soft, non-tender, nondistended. Hepatic and splenic margins not palpable. MUSCULOSKELETAL: No obvious deformities. No clubbing. No cyanosis. No edema. NEUROLOGICAL: Awake and alert. No obvious cranial nerve deficits. Motor grossly within normal limits. Normal speech. PSYCHIATRIC: Appropriate mood and affect; insight and judgment normal. Data Data Last Documented VS Vital Signs Date Time Temp Pulse Resp B/P (MAP) Pulse Ox O2 Delivery O2 Flow Rate FiO2 06/04/17 00:30 84 24 102/50 (67) 99 Nasal Cannula 3.00 06/03/17 23:28 98.1 Orders Orders Complete Blood Count With Diff (06/03/17 23:04) Blood Culture (06/03/17 23:04) Iv Access Insert/Monitor (06/03/17 23:04) Ecg Monitoring (06/03/17 23:04) Oxygen Administration (06/03/17 23:04) Oximetry (06/03/17 23:04) Electrocardiogram (06/03/17 23:04) Urinalysis - C+S If Indicated (06/03/17 23:04) Prothrombin Time / Inr (Pt) (06/03/17 23:04) Act Partial Throm Time (Ptt) (06/03/17 23:04) Comprehensive Metabolic Panel (06/03/17 23:04) B-Type Natriuretic Peptide (06/03/17 23:12) Urinary Catheter Management BECKI.Q8H (06/03/17 23:25) Chest, Single Ap (06/03/17 23:04) Troponin I (06/03/17 23:15) Admit Order (Ed Use Only) (06/04/17 01:01) Labs Laboratory Tests Test 06/03/17 23:15 White Blood Count 11.0 TH/MM3 Red Blood Count 3.18 MIL/MM3 Hemoglobin 7.5 GM/DL Hematocrit 23.1 % Mean Corpuscular Volume 72.8 FL Mean Corpuscular Hemoglobin 23.6 PG Mean Corpuscular Hemoglobin Concent 32.5 % Red Cell Distribution Width 21.6 % Platelet Count 535 TH/MM3 Mean Platelet Volume 7.1 FL Neutrophils (%) (Auto) 66.4 % Lymphocytes (%) (Auto) 17.9 % Monocytes (%) (Auto) 8.9 % Eosinophils (%) (Auto) 5.8 % Basophils (%) (Auto) 1.0 % Neutrophils # (Auto) 7.3 TH/MM3 Lymphocytes # (Auto) 2.0 TH/MM3 Monocytes # (Auto) 1.0 TH/MM3 Eosinophils # (Auto) 0.6 TH/MM3 Basophils # (Auto) 0.1 TH/MM3 CBC Comment DIFF FINAL Differential Comment Prothrombin Time 10.8 SEC Prothromb Time International Ratio 1.0 RATIO Activated Partial Thromboplast Time 18.3 SEC Urine Color LIGHT-YELLOW Urine Turbidity CLEAR Urine pH 5.5 Urine Specific [place] 1.009 Urine Protein NEG mg/dL Urine Glucose (UA) NEG mg/dL Urine Ketones NEG mg/dL Urine Occult Blood NEG Urine Nitrite NEG Urine Bilirubin NEG Urine Urobilinogen LESS THAN 2.0 MG/DL Urine Leukocyte Esterase NEG Urine RBC LESS THAN 1 /hpf Urine WBC 1 /hpf Urine Hyaline Casts 1 /lpf Microscopic Urinalysis Comment CATH-CULT NOT IND Blood Urea Nitrogen 32 MG/DL Creatinine 1.18 MG/DL Random Glucose 96 MG/DL Total Protein 6.7 GM/DL Albumin 3.0 GM/DL Calcium Level 8.3 MG/DL Alkaline Phosphatase 68 U/L Aspartate Amino Transf (AST/SGOT) 20 U/L Alanine Aminotransferase (ALT/SGPT) 21 U/L Total Bilirubin 0.3 MG/DL Sodium Level 137 MEQ/L Potassium Level 4.1 MEQ/L Chloride Level 103 MEQ/L Carbon Dioxide Level 24.5 MEQ/L Anion Gap 10 MEQ/L Estimat Glomerular Filtration Rate 43 ML/MIN Troponin I LESS THAN 0.02 NG/ML B-Type Natriuretic Peptide 69 PG/ML MDM Medical Decision Making Medical Screen Exam Complete: Yes Emergency Medical Condition: Yes Differential Diagnosis pt has CHF vs urosepsis vs ACS vs PNA SOB Narrative Course Patient has an x-ray that shows CHF patient is been given 80 of Lasix en route and 3 sublingual nitroglycerinher blood pressure was initially 170/90 in the field and on arrival it has gone to 103/60 Foleys placed and she diuresis 300 cc of normal urine chest x-ray shows CHF troponin is negative EKG has no ST elevations or depressions patient is admitted to telemetry had sign her out to Dr. Pabon inpatient telemetry for further evaluation she is also anemic hemoglobin is 7 . I ordered blood to let her be transfused up in telle where they can give her Lasix in between Critical Care Narrative Critical care time is 70 minutes monitoring her bloodpressure reevaluating her diuresis status , m deciding whether she needs BiPAP or intubationRuling out urosepsis Diagnosis Primary Impression: Congestive heart failure Additional Impression: Anemia Admitting Information Admitting Physician Requests: Admit (admit to telemetry Dr. Pabon) Milind Zavala MD Jun 03, 2017 23:25
[2017-06-03 23:28] VITALS: BP_SYST 103; BP_SYST 3; BP_DIAS 57; PULSE 89; RESP 24; TEMP 98.1; O2SAT 100
[2017-06-03 23:30] VITALS: BP 80/45; PULSE 83; RESP 24; O2SAT 100
[2017-06-03 23:32] LABS: AUTOMATED NEUTROPHIL # 7.3 TH/MM3 (1.8-7.7); BASOPHIL # 0.1 TH/MM3 (0-0.2); EOSINOPHIL # 0.6 TH/MM3 (0-0.4); EOSINOPHIL % 5.8 % (0.0-4.0); HEMATOCRIT 23.1 % (35.0-46.0); HEMO FLAGS DIFF FINAL; LYMPH % 17.9 % (9.0-44.0); MEAN CELL VOLUME 72.8 FL (80.0-100.0); MEAN CORPUSCULAR HEMOGLOBIN 23.6 PG (27.0-34.0); MEAN CORPUSCULAR HGB CONC 32.5 % (32.0-36.0); MONO % 8.9 % (0.0-8.0); NEUT % 66.4 % (16.0-70.0); PLATELET COUNT 535 TH/MM3 (150-450); RED BLOOD COUNT 3.18 MIL/MM3 (4.00-5.30); RED CELL DISTRIBUTION WIDTH 21.6 % (11.6-17.2)
[2017-06-03] MEDS ORDERED: FERR325T18 PO (23:39)
[2017-06-03] MEDS ORDERED: PRAV80TA2 PO (23:39)
[2017-06-03] MEDS ORDERED: HYDR25TA5 PO (23:39)
[2017-06-03] MEDS ORDERED: ENAL5TAB PO (23:39)
[2017-06-03] MEDS ORDERED: PANT40TA3 PO (23:39)
[2017-06-03 23:40] LABS: BLOOD, URINE NEG (NEG); GLUCOSE,URINE NEG (NEG); HYALINE CAST, URINE 1 /lpf (RARE); KETONE, URINE NEG (NEG); NITRITE,URINE NEG (NEG); PH, URINE 5.5 (5.0-8.5); URINE COLOR LIGHT-YELLOW (YELLW/STRAW)
[2017-06-03 23:44] LABS: COMMENT (UR) CATH-CULT NOT IND; CULTURE IF INDICATED CATH CULTURE NOT IND
--- NOTE | 2017-06-03 23:45 | RADRPT ---
EXAM DATE/TIME: 06/03/2017 23:17 [facility] COMPARISON: CHEST SINGLE AP, April 07, 2017, 9:32. INDICATIONS : Shortness of breath MEDICAL HISTORY : Hypertension. SURGICAL HISTORY : Hysterectomy. ENCOUNTER: Initial ACUITY: 1 day PAIN SCORE: 6/10 LOCATION: Bilateral chest FINDINGS: The cardiac silhouette is enlarged in transverse diameter. There is prominence of the aortic knob is with calcification characteristic of atherosclerotic vascular disease. There are findings of congesti ve heart failure with interstitial and alveolar opacity bilaterally. CONCLUSION: 1. Cardiomegaly and findings of congestive heart failure. Jin Hodge MD on June 03, 2017 at 23:44 Board Certified Radiologist. This report was verified electronically.
[2017-06-03 23:50] VITALS: BP 112/50; PULSE 89; RESP 24; O2SAT 100
[2017-06-03 23:53] LABS: ANION GAP 10 MEQ/L (5-15); AST (GOT) 20 U/L (15-37); BICARBONATE 24.5 MEQ/L (21.0-32.0); BLOOD UREA NITROGEN 32 MG/DL (7-18); CHLORIDE 103 MEQ/L (98-107); GLOMERULAR FILTRATION RATE 43 ML/MIN (>89); POTASSIUM 4.1 MEQ/L (3.5-5.1); SODIUM (NA) 137 MEQ/L (136-145)
[2017-06-03 23:54] LABS: ALT (GPT) 21 U/L (10-53)
[2017-06-03 23:56] LABS: ALKALINE PHOSPHATASE 68 U/L (45-117); TOTAL BILIRUBIN ADULT 0.3 MG/DL (0.2-1.0)
[2017-06-04] VITALS (18 sets, daily range): BP systolic 94–171; BP diastolic 50–79; PULSE 79–98; RESP 16–24; TEMP 97.1–99.1; O2SAT 96–100
[2017-06-04 00:03] LABS: APTT (PATIENT) 18.3 SEC (24.3-30.1); PROTHROMBIN TIME - PATIENT 10.8 SEC (9.8-11.6)
[2017-06-04] MEDS ORDERED: ACETAMINOPHEN 325 MG TAB PO ONE (02:00)
[2017-06-04] MEDS ORDERED: SODIUM CHLORIDE 0.9% FLUSH 10 ML FLUSH IV FLUSH PRN (02:15)
[2017-06-04] MEDS ORDERED: traMADol HCL 50 MG TAB PO PRN (02:45)
[2017-06-04] MEDS ORDERED: SODIUM CHLOR 0.9% 250 ML INJ 250 ML IV ONE (04:15)
[2017-06-04] MEDS ORDERED: FUROSEMIDE 20 MG/2 ML VIAL IV PUSH ONE (04:15)
--- NOTE | 2017-06-04 04:25 | HHI.HP ---
HPI Service [facility] Primary Care Physician Chris Hopkins MD Admission Diagnosis CHF Diagnoses: Travel History International Travel<30 Days: No Contact w/Intl Traveler <30 Da: No Traveled to Known Affected Are: No History of Present Illness 86-year-old female recently seen in the emergency department for altered mental status found to be severely anemic and transfused 2 units presents to the emergency department after becoming more lethargic and short of breath over the past few days. The patient has a history of CHF and was given 3 sublingual nitroglycerin and 80 mg of IV Lasix by paramedics. Upon arrival to the emergency department, the patient's H/H was 7.5/23.1. When she was discharged in March of this year her H&H was 9.9/31.2. At the time of her interview, the patient is alone in her room complaining of severe lower extremity leg cramping. She is unable to answer any of my questions but is currently requiring 3 L nasal cannula. Chest x-ray significant for interstitial edema. BNP 69. Patient also with mild LEONIE with a creatinine of 1.18, baseline 0.87. Diffuse crackles bilaterally on lung exam. Review of Systems Unable to obtain secondary to patient's altered mental status Past Family Social History Past Medical History Osteoarthritis Hypertension hyperlipidemia Congestive heart failure Chronic kidney disease History of ulcers COPD GERD Past Surgical History Hysterectomy Reported Medications Reported Meds & Active Scripts Active Reported Pantoprazole (Pantoprazole Sodium) 40 Mg Tab 40 Mg PO DAILY Ferrous Sulfate 325 Mg (65 Mg Iron) Tablet 325 Mg PO DAILY Enalapril (Enalapril Maleate) 5 Mg Tab 5 Mg PO DAILY Hydrochlorothiazide 25 Mg Tab 25 Mg PO DAILY Pravastatin 80 Mg Tab 100 Mg PO HS Allergies: Coded Allergies: No Known Allergies (Verified , 11/25/13) Family History HTN Social History Denies alcohol, tobacco or illicit drugs Physical Exam Vital Signs Vital Signs Date Time Temp Pulse Resp B/P (MAP) Pulse Ox O2 Delivery O2 Flow Rate FiO2 06/04/17 02:28 98.4 93 18 115/54 (74) 100 06/04/17 02:15 06/04/17 00:30 84 24 102/50 (67) 99 Nasal Cannula 3.00 06/03/17 23:50 89 24 112/50 (70) 100 Nasal Cannula 3.00 06/03/17 23:34 100 Nasal Cannula 3.00 06/03/17 23:30 83 24 80/45 (57) 100 Nasal Cannula 3.00 06/03/17 23:28 98.1 89 24 103/57 (72) 100 06/03/17 23:15 100 Nasal Cannula 3.00 Physical Exam GENERAL: This is a well-nourished, well-developed patient, in no apparent distress. SKIN: No rashes, ecchymoses or lesions. Cool and dry. HEAD: Atraumatic. Normocephalic. No temporal or scalp tenderness. EYES: Pupils equal round and reactive. Extraocular motions intact. No scleral icterus. No injection or drainage. ENT: Nose without bleeding, purulent drainage or septal hematoma. Throat without erythema, tonsillar hypertrophy or exudate. Uvula midline. Airway patent. NECK: Trachea midline. No JVD or lymphadenopathy. Supple, nontender, no meningeal signs. CARDIOVASCULAR: Regular rate and rhythm without murmurs, gallops, or rubs. RESPIRATORY: Clear to auscultation. Breath sounds equal bilaterally. No wheezes , rales, or rhonchi. GASTROINTESTINAL: Abdomen soft, non-tender, nondistended. No hepato-splenomegaly , or palpable masses. No guarding. MUSCULOSKELETAL: Extremities without clubbing, cyanosis, or edema. No joint tenderness, effusion, or edema noted. No calf tenderness. Negative Homans sign bilaterally. NEUROLOGICAL: Awake and alert. Cranial nerves II through XII intact. Motor and sensory grossly within normal limits. Five out of 5 muscle strength in all muscle groups. Normal speech. Laboratory Laboratory Tests Test 06/03/17 23:15 White Blood Count 11.0 Red Blood Count 3.18 Hemoglobin 7.5 Hematocrit 23.1 Mean Corpuscular Volume 72.8 Mean Corpuscular Hemoglobin 23.6 Mean Corpuscular Hemoglobin Concent 32.5 Red Cell Distribution Width 21.6 Platelet Count 535 Mean Platelet Volume 7.1 Neutrophils (%) (Auto) 66.4 Lymphocytes (%) (Auto) 17.9 Monocytes (%) (Auto) 8.9 Eosinophils (%) (Auto) 5.8 Basophils (%) (Auto) 1.0 Neutrophils # (Auto) 7.3 Lymphocytes # (Auto) 2.0 Monocytes # (Auto) 1.0 Eosinophils # (Auto) 0.6 Basophils # (Auto) 0.1 CBC Comment DIFF FINAL Differential Comment Prothrombin Time 10.8 Prothromb Time International Ratio 1.0 Activated Partial Thromboplast Time 18.3 Urine Color LIGHT-YELLOW Urine Turbidity CLEAR Urine pH 5.5 Urine Specific [place] 1.009 Urine Protein NEG Urine Glucose (UA) NEG Urine Ketones NEG Urine Occult Blood NEG Urine Nitrite NEG Urine Bilirubin NEG Urine Urobilinogen LESS THAN 2.0 Urine Leukocyte Esterase NEG Urine RBC LESS THAN 1 Urine WBC 1 Urine Hyaline Casts 1 Microscopic Urinalysis Comment CATH-CULT NOT IND Blood Urea Nitrogen 32 Creatinine 1.18 Random Glucose 96 Total Protein 6.7 Albumin 3.0 Calcium Level 8.3 Alkaline Phosphatase 68 Aspartate Amino Transf (AST/SGOT) 20 Alanine Aminotransferase (ALT/SGPT) 21 Total Bilirubin 0.3 Sodium Level 137 Potassium Level 4.1 Chloride Level 103 Carbon Dioxide Level 24.5 Anion Gap 10 Estimat Glomerular Filtration Rate 43 Troponin I LESS THAN 0.02 B-Type Natriuretic Peptide 69 Date/Time Source Procedure Growth Status 06/03/17 23:15 Blood Peripheral Aerobic Blood Culture Pending Received 06/03/17 23:15 Blood Peripheral Anaerobic Blood Culture Pending Received Result Diagram: 06/03/17231406/03/172314 Caprini VTE Risk Assessment Caprini VTE Risk Assessment: Mod/High Risk (score >= 2) Caprini Risk Assessment Model Point Value = 1 Point Value = 2 Point Value = 3 Point Value = 5 Age 41-60 Minor surgery BMI > 25 kg/m2 Swollen legs Varicose veins or History of unexplained or recurrent spontaneous Oral contraceptives or hormone replacement Sepsis (< 1 month) Serious lung disease, including pneumonia (< 1 month) Abnormal pulmonary function Acute myocardial infarction Congestive heart failure (< 1 month) History of inflammatory bowel disease Medical patient at bed rest Age 61-74 Arthroscopic surgery Major open surgery (> 45 min) Laparoscopic surgery (> 45 min) Malignancy Confined to bed (> 72 hours) Immobilizing plaster cast Central venous access Age >= 75 History of VTE Family history of VTE Factor V Leiden Prothrombin [id number] Lupus anticoagulant Anticardiolipin antibodies Elevated serum homocysteine Heparin-induced thrombocytopenia Other congenital or acquired thrombophilia Stroke (< 1 month) Elective arthroplasty Hip, pelvis, or leg fracture Acute spinal cord injury (< 1 month) Prophylaxis Regimen Total Risk Factor Score Risk Level Prophylaxis Regimen 0-1 Low Early ambulation 2 Moderate Order ONE of the following: *Sequential Compression Device (SCD) *Heparin 5000 units SQ BID 3-4 Higher Order ONE of the following medications: *Heparin 5000 units SQ TID *Enoxaparin/Lovenox 40 mg SQ daily (WT < 150 kg, CrCl > 30 mL/min) *Enoxaparin/Lovenox 30 mg SQ daily (WT < 150 kg, CrCl > 10-29 mL/min) *Enoxaparin/Lovenox 30 mg SQ BID (WT < 150 kg, CrCl > 30 mL/min) AND/OR *Sequential Compression Device (SCD) 5 or more Highest Order ONE of the following medications: *Heparin 5000 units SQ TID (Preferred with Epidurals) *Enoxaparin/Lovenox 40 mg SQ daily (WT < 150 kg, CrCl > 30 mL/min) *Enoxaparin/Lovenox 30 mg SQ daily (WT < 150 kg, CrCl > 10-29 mL/min) *Enoxaparin/Lovenox 30 mg SQ BID (WT < 150 kg, CrCl > 30 mL/min) AND *Sequential Compression Device (SCD) Assessment and Plan Assessment and Plan 86-year-old female with a past medical history significant for CHF, hypertension , hyperlipidemia and previous anemia presents to the emergency department with altered mental status, increasing shortness of breath, anemia and CHF exacerbation. 1. Anemia/concern for GI bleed Hemoccult pending Transfuse 2 units packed red blood cells Patient underwent complete GI workup in March of this year which showed no active bleeding but esophagitis as the possible source of her anemia Recommended repeat EGD in 6 weeks, consulted gastroenterology Continue Protonix Monitor CBC 2. CHF exacerbation BMP not elevated however chest x-ray showed interstitial edema, images reviewed by me Patient status post 80 mg of IV Lasix by paramedics prior to her arrival in the emergency department Currently requiring 3 L nasal cannula Continue diuresis with IV Lasix 3. Hypertension Continue home enalapril Continue home hydrochlorothiazide 4. Hyperlipidemia Continue home pravastatin FEN Diet nothing by mouth until evaluated by GI Electrolytes: Monitor and replete when necessary Holding pharmacologic anticoagulation for severe anemia/possible bleed Shannon Pabon MD Jun 04, 2017 04:25
[2017-06-04] MEDS ORDERED: hydrOXYzine HCL 25 MG TAB PO ONE (04:30)
--- NOTE | 2017-06-04 08:21 | EKG ---
Date Performed: 06/03/2017 Time Performed: 23:22:15 PTAGE: 86 years EKG: Sinus rhythm WITH FIRST DEGREE AV BLOCK LEFT VENTRICULAR HYPERTROPHY AND ST-T CHANGE INFERIOR MYOCARDIAL INFARCTI ON ANTEROSEPTAL MYOCARDIAL INFARCTION ABNORMAL ECG NO PREVIOUS TRACING DOCTOR: Jesus Yates Interpretating Date/Time 06/04/2017 08:21:13
[2017-06-04] MEDS ORDERED: ENOXAPARIN SODIUM 40 MG/0.4 ML SYRINGE SQ SCH (09:00)
[2017-06-04] MEDS ORDERED: HYDROCHLOROTHIAZIDE 25 MG TAB PO SCH (09:00)
[2017-06-04] MEDS: FERROUS SULFATE 325 MG (65 MG ELEMENTAL IRON) TAB PO SCH (09:36)
[2017-06-04] MEDS: POTASSIUM CHLORIDE 10 MEQ CONTROLLED RELEASE TAB PO SCH ×2 (09:36→20:38)
[2017-06-04] MEDS: ENALAPRIL MALEATE 5 MG TAB PO SCH (09:36)
[2017-06-04] MEDS: SODIUM CHLORIDE 0.9% FLUSH 10 ML FLUSH IV FLUSH SCH ×2 (09:36→20:43)
[2017-06-04] MEDS: FUROSEMIDE 20 MG/2 ML VIAL IV PUSH SCH ×2 (09:36→18:08)
[2017-06-04] MEDS: PANTOPRAZOLE SOD 40 MG DELAYED RELEASE TAB PO SCH (09:36)
[2017-06-04] MEDS ORDERED: ACETAMINOPHEN 325 MG TAB PO PRN (10:00)
--- NOTE | 2017-06-04 11:05 | RADRPT ---
EXAM DATE/TIME: 06/04/2017 10:08 [facility] COMPARISON: No previous studies available for comparison. INDICATIONS : Bilateral leg pain. MEDICAL HISTORY : Hypercholesterolemia. Hypertension. Congestive heart failure. COPD. Arthritis. SURGICAL HISTORY : Hysterectomy. ENCOUNTER: Initial ACUITY: 1 day PAIN SCORE: 6/10 LOCATION: Bilateral legs. TECHNIQUE: Venous ultrasound of the left and right leg was performed from the inguinal ligament to the proximal calf. Real-time, color Doppler and spectral tracing, compression and augmentation techniques were us ed. FINDINGS: RIGHT LEG: There is normal compressibility of the deep venous system from the inguinal region to the proximal ca lf. No echogenic clot is seen in the lumen of the common femoral, femoral, popliteal, and posterior tibial veins. There is a normal response of the venous system to proximal and distal augmentation an d respiration. LEFT LEG: There is normal compressibility of the deep venous system from the inguinal region to the proximal ca lf. No echogenic clot is seen in the lumen of the common femoral, femoral, popliteal, and posterior tibial veins. There is a normal response of the venous system to proximal and distal augmentation an d respiration. CONCLUSION: 1. No sonographic evidence for lower extremity DVT. Noel Anders MD on June 04, 2017 at 11:02 Board Certified Radiologist. This report was verified electronically.
[2017-06-04] MEDS ORDERED: PROPOFOL 200 MG/20 ML AMP IV ONE (12:00)
[2017-06-04] MEDS ORDERED: LIDOCAINE HCL 1% PF 5 ML AMPULE OTHER ONE (12:00)
[2017-06-04] MEDS ORDERED: MIDAZOLAM HCL 2 MG/2 ML VIAL IV ONE (12:00)
--- NOTE | 2017-06-04 12:17 | HHI.PR ---
Subjective Remarks Follow-up visit on a 86 year old female with PMH significant for HTN, HLD, CHF , OA, and ulcers. Patient seen in room yelling out "my legs hurt". At first patient states her left leg is in pain and then states it is both legs, she is not able to describe pain or when pain in her legs began. She seems to be confused, oriented to self and place. When asked what year it is she says "Who the hell cares" Poor historian due to confusion, no family at bedside. Objective Vitals Vital Signs Date Time Temp Pulse Resp B/P (MAP) Pulse Ox O2 Delivery O2 Flow Rate FiO2 06/04/17 11:38 97.6 90 16 135/52 (79) 99 06/04/17 11:14 91 119/61 97 06/04/17 10:59 97.5 98 18 141/65 97 06/04/17 10:35 97.1 91 18 94/52 97 06/04/17 08:26 98 Nasal Cannula 2.00 06/04/17 07:44 99.1 93 16 115/55 (75) 98 06/04/17 06:22 97.6 91 18 96/51 06/04/17 06:05 98.7 89 20 99/50 98 06/04/17 05:48 98.1 96 22 171/79 96 06/04/17 02:28 98.4 93 18 115/54 (74) 100 06/04/17 02:15 06/04/17 00:30 84 24 102/50 (67) 99 Nasal Cannula 3.00 06/03/17 23:50 89 24 112/50 (70) 100 Nasal Cannula 3.00 06/03/17 23:34 100 Nasal Cannula 3.00 06/03/17 23:30 83 24 80/45 (57) 100 Nasal Cannula 3.00 06/03/17 23:28 98.1 89 24 103/57 (72) 100 06/03/17 23:15 100 Nasal Cannula 3.00 I/O 06/03/17 06/03/17 06/03/17 06/04/17 06/04/17 06/04/17 07:00 15:00 23:00 07:00 15:00 23:00 Intake Total 420 ml Output Total 2025 ml Balance -2025 ml 420 ml Intake Packed Cells 400 ml Blood Product IV Normal Saline Flush 20 ml Output Urine Total 2025 ml Result Diagram: 06/03/17231406/03/172314 Imaging Last Impressions Lower Extremity Ultrasound 06/04/17 0000 Signed Impressions: Service Date/Time: Sunday, June 04, 2017 10:08 - CONCLUSION: 1. No sonographic evidence for lower extremity DVT. Noel Anders MD Chest X-Ray 06/03/174 Signed Impressions: Service Date/Time: Saturday, June 03, 2017 23:17 - CONCLUSION: 1. Cardiomegaly and findings of congestive heart failure. Jin Hodge MD Objective Remarks GENERAL: This is a well-nourished, well-developed patient, yelling out from time to time due to reported leg pain. SKIN: No rashes, ecchymoses or lesions. Cool and dry. HEAD: Atraumatic. Normocephalic. EYES: Pupils equal round and reactive. No injection or drainage. ENT: Nose without bleeding, purulent drainage or septal hematoma. Airway patent. NECK: Trachea midline. No JVD. CARDIOVASCULAR: Regular rate and rhythm without murmurs, gallops, or rubs. RESPIRATORY: Clear to auscultation. Breath sounds equal bilaterally. No wheezes , rales, or rhonchi. GASTROINTESTINAL: Abdomen soft, non-tender, nondistended. No guarding. MUSCULOSKELETAL: Extremities without clubbing, cyanosis, +1 bilateral leg edema. Tenderness of bilateral legs and calfs. NEUROLOGICAL: Awake and alert. Oriented to self and place. Moves all extremities spontaneously and able to follow commands. Normal speech, no facial droop. Medications and IVs Current Medications Medications (Trade) Dose Ordered Sig/Cass Route Start Time Stop Time Status Last Admin (Lasix Inj) 20 mg BID@09,18 IV PUSH 06/04/17 09:00 06/04/17 09:36 (NS Flush) 2 ml UNSCH PRN IV FLUSH 06/04/17 02:15 (NS Flush) 2 ml BID IV FLUSH 06/04/17 09:00 06/04/17 09:36 (KCl) 10 meq BID PO 06/04/17 09:00 06/04/17 09:36 Sodium Chloride 250 ml @ 15 mls/hr ONCE ONCE IV 06/04/17 04:15 06/04/17 20:54 06/04/17 06:02 (Vasotec) 5 mg DAILY PO 06/04/17 09:00 06/04/17 09:36 (Ferrous Sulfate) 325 mg DAILY PO 06/04/17 09:00 06/04/17 09:36 (Hydrodiuril) 25 mg DAILY PO 06/04/17 09:00 06/04/17 09:36 (Protonix) 40 mg DAILY PO 06/04/17 09:00 06/04/17 09:36 (Pravachol) 100 mg HS PO 06/04/17 21:00 (Tylenol) 650 mg Q4H PRN PO 06/04/17 10:00 06/04/17 11:10 A/P Problem List: (1) Anemia ICD Code: D64.9 - Anemia, unspecified Status: Acute (2) Congestive heart failure ICD Code: I50.9 - Congestive heart failure Status: Acute (3) Hypertension ICD Code: I10 - Hypertension Status: Acute Assessment and Plan 86-year-old female with a past medical history significant for CHF, hypertension , hyperlipidemia and previous anemia presents to the emergency department with altered mental status, increasing shortness of breath, anemia and CHF exacerbation. Anemia/concern for GI bleed - Recent admission in March of this year due to GIB. EGD showed esophagitis, gastritis and duodenitis. Colonoscopy revealed diverticulosis and hemorrhoids. - Hgb 7.5, Hct 23.1 with AMS, currently receiving 1 unit of PRBC's, will receive total of 2. - ? GI bleed once again given her recent history. - Hemoccult pending. - GI consulted, plans for EGD today once consents are obtained. - Will recheck H&H after transfusion. - On Protonix CHF exacerbation - BMP not elevated however chest x-ray showed interstitial edema, images reviewed by me. - Patient status post 80 mg of IV Lasix by paramedics prior to her arrival in the emergency department - Currently requiring 3 L nasal cannula, O2 sats in high 90's. - Continue diuresis with IV Lasix, good diuresis. Hypertension, chronic - Continue home enalapril - Continue home hydrochlorothiazide - BP stable Bilateral leg pain, acute - acute issue which she is complaining of this AM. - Leg US negative for DVT -Tylenol for pain PRN, possible musculoskeletal related. Hyperlipidemia, chronic - Continue home pravastatin Discharge Planning Plans for EGD by GI today once consents are obtained. Misael Hi Jun 04, 2017 12:17
--- NOTE | 2017-06-04 13:15 | PD.CONS ---
HPI History of Present Illness This is a 86 year old female patient who resides with her son and his and was brought to the emergency room for evaluation of generalized weakness, dizziness, left arm pain, and change in mental status. He reports that she has been a little "shaky" for a few days, but started having more weakness, dizziness, and became incoherent yesterday. She was brought to the emergency room and found to be anemic with an HH of 7.5/23.1. She was hospitalized for a similar episode back in March of this year. She was evaluated with EGD (05/15)----> 1. Esophagitis distal esophagus -biopsy, gastritis antrum-biopsy, duodenitis -second portion-biopsy, 2. Retroflexed views revealed a hiatal hernia. Pathology revealed mild acute duodenitis, mild chronic gastritis, negative for helicobacter pylori, distal esophagus biopsy acutely and chronically inflamed intestinalized mucosa, consistent with escobar's esophagus. No squamous mucosa present, negative for dysplasia or malignancy. Colonoscopy (04/11/17)---> 1. Diverticulosis sigmoid,descending, 2. Retroflexed views revealed internal hemorrhoids, 3. Retroflexed views revealed medium internal hemorrhoids, 4. Revealed external hemorrhoids. Her son reports that about a week ago, she ran out of her proton pump inhibitor and when he called for a refill, was told that if she was not having any stomach issues, that it did not need to be refilled. She was not having any issues at the time and therefore she stopped her medication. However, she then started havign some abdominal discomfort- patient is unable to describe and therefore she was put back on Pantoprazole 40mg po daily. Her symptoms did improve with this. She is not having any heartburn, hematemesis, melena, or hematochezia. (Pinky Snow) PFSH Past Medical History Osteoarthritis Hypertension Hyperlipidemia Congestive heart failure Chronic kidney disease History of stomach ulcers COPD GERD Esophagitis Past Surgical History Hysterectomy EGD Colonoscopy (Pinky Snow) Coded Allergies: No Known Allergies (Verified , 11/25/13) Medications Allergies Coded Allergies Type Severity Reaction Last Updated Verified No Known Allergies 11/25/13 Yes Active Scripts Medications Dose Route/Sig Max Daily Dose Days Date Category Pantoprazole (Pantoprazole Sodium) 40 Mg Tab 40 Mg PO DAILY 06/03/17 Reported Ferrous Sulfate 325 Mg (65 Mg Iron) Tablet 325 Mg PO DAILY 06/03/17 Reported Enalapril (Enalapril Maleate) 5 Mg Tab 5 Mg PO DAILY 06/03/17 Reported Hydrochlorothiazide 25 Mg Tab 25 Mg PO DAILY 06/03/17 Reported Pravastatin 80 Mg Tab 100 Mg PO HS 06/03/17 Reported Family History HTN Social History Denies alcohol, tobacco or illicit drugs (Pinky Snow) Review of Systems Constitutional: COMPLAINS OF: Fatigue, DENIES: Fever, Chills Respiratory: COMPLAINS OF: Shortness of breath Cardiovascular: COMPLAINS OF: Lower Extremity Edema Gastrointestinal: COMPLAINS OF: Abdominal pain, DENIES: Black stools, Bloody stools, Nausea, Vomiting, Heartburn, Hematemesis Psychiatric: COMPLAINS OF: Confusion ROS Poor historian (Pinky Snow) GI Exam Vitals I&O Vital Signs Date Time Temp Pulse Resp B/P (MAP) Pulse Ox O2 Delivery O2 Flow Rate FiO2 06/04/17 11:38 97.6 90 16 135/52 (79) 99 06/04/17 11:14 91 119/61 97 06/04/17 10:59 97.5 98 18 141/65 97 06/04/17 10:35 97.1 91 18 94/52 97 06/04/17 08:26 98 Nasal Cannula 2.00 06/04/17 07:44 99.1 93 16 115/55 (75) 98 06/04/17 06:22 97.6 91 18 96/51 06/04/17 06:05 98.7 89 20 99/50 98 06/04/17 05:48 98.1 96 22 171/79 96 06/04/17 02:28 98.4 93 18 115/54 (74) 100 06/04/17 02:15 06/04/17 00:30 84 24 102/50 (67) 99 Nasal Cannula 3.00 06/03/17 23:50 89 24 112/50 (70) 100 Nasal Cannula 3.00 06/03/17 23:34 100 Nasal Cannula 3.00 06/03/17 23:30 83 24 80/45 (57) 100 Nasal Cannula 3.00 06/03/17 23:28 98.1 89 24 103/57 (72) 100 06/03/17 23:15 100 Nasal Cannula 3.00 I/O 06/03/17 06/03/17 06/03/17 06/04/17 06/04/17 06/04/17 07:00 15:00 23:00 07:00 15:00 23:00 Intake Total 420 ml Output Total 2025 ml 1400 ml Balance -2025 ml -980 ml Intake Packed Cells 400 ml Blood Product IV Normal Saline Flush 20 ml Output Urine Total 2025 ml 1400 ml Imaging Last Impressions Lower Extremity Ultrasound 06/04/17 0000 Signed Impressions: Service Date/Time: Sunday, June 04, 2017 10:08 - CONCLUSION: 1. No sonographic evidence for lower extremity DVT. Noel Anders MD Chest X-Ray 06/03/17 2304 Signed Impressions: Service Date/Time: Saturday, June 03, 2017 23:17 - CONCLUSION: 1. Cardiomegaly and findings of congestive heart failure. Jin Hodge MD Laboratory Test 06/03/17 23:15 White Blood Count 11.0 TH/MM3 Red Blood Count 3.18 MIL/MM3 Hemoglobin 7.5 GM/DL Hematocrit 23.1 % Mean Corpuscular Volume 72.8 FL Mean Corpuscular Hemoglobin 23.6 PG Mean Corpuscular Hemoglobin Concent 32.5 % Red Cell Distribution Width 21.6 % Platelet Count 535 TH/MM3 Mean Platelet Volume 7.1 FL Neutrophils (%) (Auto) 66.4 % Lymphocytes (%) (Auto) 17.9 % Monocytes (%) (Auto) 8.9 % Eosinophils (%) (Auto) 5.8 % Basophils (%) (Auto) 1.0 % Neutrophils # (Auto) 7.3 TH/MM3 Lymphocytes # (Auto) 2.0 TH/MM3 Monocytes # (Auto) 1.0 TH/MM3 Eosinophils # (Auto) 0.6 TH/MM3 Basophils # (Auto) 0.1 TH/MM3 CBC Comment DIFF FINAL Differential Comment Prothrombin Time 10.8 SEC Prothromb Time International Ratio 1.0 RATIO Activated Partial Thromboplast Time 18.3 SEC Urine Color LIGHT-YELLOW Urine Turbidity CLEAR Urine pH 5.5 Urine Specific [place] 1.009 Urine Protein NEG mg/dL Urine Glucose (UA) NEG mg/dL Urine Ketones NEG mg/dL Urine Occult Blood NEG Urine Nitrite NEG Urine Bilirubin NEG Urine Urobilinogen LESS THAN 2.0 MG/DL Urine Leukocyte Esterase NEG Urine RBC LESS THAN 1 /hpf Urine WBC 1 /hpf Urine Hyaline Casts 1 /lpf Microscopic Urinalysis Comment CATH-CULT NOT IND Blood Urea Nitrogen 32 MG/DL Creatinine 1.18 MG/DL Random Glucose 96 MG/DL Total Protein 6.7 GM/DL Albumin 3.0 GM/DL Calcium Level 8.3 MG/DL Alkaline Phosphatase 68 U/L Aspartate Amino Transf (AST/SGOT) 20 U/L Alanine Aminotransferase (ALT/SGPT) 21 U/L Total Bilirubin 0.3 MG/DL Sodium Level 137 MEQ/L Potassium Level 4.1 MEQ/L Chloride Level 103 MEQ/L Carbon Dioxide Level 24.5 MEQ/L Anion Gap 10 MEQ/L Estimat Glomerular Filtration Rate 43 ML/MIN Troponin I LESS THAN 0.02 NG/ML B-Type Natriuretic Peptide 69 PG/ML Date/Time Source Procedure Growth Status 06/03/17 23:15 Blood Peripheral Aerobic Blood Culture - Preliminary NO GROWTH IN 1 DAY Resulted 06/03/17 23:15 Blood Peripheral Anaerobic Blood Culture - Preliminary NO GROWTH IN 1 DAY Resulted Physical Examination HEENT: Normocephalic; atraumatic; no jaundice. CHEST: Resp. even/unlabored. Diminished bases. CARDIAC: RRR ABDOMEN: Soft, nondistended,epigastric tenderness; no hepatosplenomegaly; bowel sounds are present in all four quadrants. EXTREMITIES: Mild BLE edema. SKIN: Normal; no rash; no jaundice. PULP DRIER FIRER: No focal deficits; lethargic, oriented to person and place (Pinky Snow) Assessment and Plan Plan ASSESSMENT: - Anemia. Brought to ER for weakness, found to have microcytic anemia. She has hx of JORGE and was recently hospitalized in [place]. EGD (04/08/17)----> 1. Esophagitis distal esophagus -biopsy, gastritis antrum- biopsy, duodenitis -second portion-biopsy, 2. Retroflexed views revealed a hiatal hernia. Pathology revealed mild acute duodenitis, mild chronic gastritis, negative for helicobacter pylori, distal esophagus biopsy acutely and chronically inflamed intestinalized mucosa, consistent with escobar's esophagus. No squamous mucosa present, negative for dysplasia or malignancy. Colonoscopy (04/11/17)---> 1. Diverticulosis sigmoid,descending, 2. Retroflexed views revealed internal hemorrhoids, 3. Retroflexed views revealed medium internal hemorrhoids, 4. Revealed external hemorrhoids. Recently off PPI for a few days and had abdominal pain while she was off. She is back on and her son reports this has improved. She does have epigastric tenderness on exam. 7.5/23.1. 2 units ordered. EGD today - Epigastric tenderness on exam. EGD today. - GERD. PPI - HTN, CHF, Hyperlipidemia, COPD, CKD per attending. PLAN: - Plan for EGD today - Obtain consents - NPO - PPI - Monitor HH - Transfuse as needed - Supportive care - Further recommendations to follow based on results of above - Pt seen and examined by Dr. Prajapati and myself and this note is written on his behalf (Pinky Snow) Physician Comments Seen and examined, plan as above. Will obtain consent for EGD today. Further recommendations to follow based on EGD findings. Thank you for the consult (Adelia Prajapati MD) Pinky Snow Jun 04, 2017 13:15 Adelia Prajapati MD Jun 04, 2017 13:30
[2017-06-04 15:18] LABS: AUTOMATED NEUTROPHIL # 6.2 TH/MM3 (1.8-7.7); BASOPHIL # 0.1 TH/MM3 (0-0.2); BASOPHIL % 0.9 % (0.0-2.0); EOSINOPHIL # 0.3 TH/MM3 (0-0.4); EOSINOPHIL % 3.3 % (0.0-4.0); HEMATOCRIT 27.9 % (35.0-46.0); HEMO FLAGS DIFF FINAL; LYMPH % 15.4 % (9.0-44.0); LYMPHOCYTE # 1.4 TH/MM3 (1.0-4.8); MEAN CORPUSCULAR HEMOGLOBIN 24.7 PG (27.0-34.0); MEAN CORPUSCULAR HGB CONC 33.3 % (32.0-36.0); MONO % 12.2 % (0.0-8.0); NEUT % 68.2 % (16.0-70.0); PLATELET COUNT 476 TH/MM3 (150-450); RED BLOOD COUNT 3.77 MIL/MM3 (4.00-5.30); RED CELL DISTRIBUTION WIDTH 21.5 % (11.6-17.2); WHITE BLOOD COUNT 9.1 TH/MM3 (4.0-11.0)
[2017-06-04 15:41] LABS: POTASSIUM 3.8 MEQ/L (3.5-5.1)
[2017-06-04 15:42] LABS: MAGNESIUM 1.6 MG/DL (1.5-2.5); TRANSFERRIN IRON PROFILE 301 MG/DL (200-360)
[2017-06-04 15:44] LABS: FERRITIN 8 NG/ML (8-252)
[2017-06-04] MEDS ORDERED: DO NOT ADM ANY ANTICOAGULANT DRUGS PRN (16:21)
--- NOTE | 2017-06-04 16:26 | GIPROC ---
[facility] [address] [facility]. [facility], [id number] EGD PROCEDURE REPORT EXAM DATE: 06/04/2017 PATIENT NAME: Debby José MR #: [id number] BIRTHDATE: 1930 ATTENDING: Adelia Prajapati MD ORDER #: [id number] METER/RELAY TECHNICIAN: Lorena Cruz and Zehra Crenshaw STATUS: inpatient INDICATIONS: The patient is a 86 yr old female here for an EGD due to anemia PROCEDURE PERFORMED: EGD, diagnostic MEDICATIONS: None and Per Anesthesia. TOPICAL ANESTHETIC: none CONSENT: The patient understands the risks and benefits of the procedure and understands that these risks include, but are not limited to: sedation, allergic reaction, infection, perforation and/or bleeding. Alternative means of evaluation and treatment include, among others: physical exam, x-rays, and/or surgical intervention. The patient elects to proceed with this endoscopic procedure. medical equipment was checked for proper function. Hand hygiene and appropriate measures for infection prevention was taken. After the risks, benefits and alternatives of the procedure were thoroughly explained, Informed consent was verified, confirmed and timeout was successfully executed by the treatment team. The patient was anesthetized with topical anesthesia and the Pentax EG-[id number] endoscope was introduced through the mouth and advanced to the second portion of the duodenum. Retroflexion was performed and was normal The gastroscope was then slowly withdrawn and removed. ESOPHAGUS: A 2 cm hiatal hernia was noted. STOMACH: The mucosa of the stomach appeared normal. DUODENUM: The duodenal mucosa appeared normal in the bulb and second portion of the duodenum. ADVERSE EVENTS: There were no complications. IMPRESSIONS: 1. 2 cm hiatal hernia 2. The mucosa of the stomach appeared normal 3. Normal duodenal mucosa in the bulb and second portion of the duodenum RECOMMENDATIONS: No treatment PATIENT CONDITION: stable DISPOSITION: Observation REPEAT EXAM: NONE Adelia Prajapati MD eSigned: Adelia Prajapati MD 06/04/2017 4:26 PM cc:
[2017-06-04] MEDS ORDERED: *morphine SULFATE 8 MG/ML PERIprocedure ONLY ONE (17:01)
[2017-06-04] MEDS ORDERED: MORPHINE SULFATE 8 MG/ML INJ IV PUSH ONE (17:45)
[2017-06-04] MEDS: PRAVASTATIN SOD 80 MG TAB PO SCH (20:38)
[2017-06-05] VITALS (12 sets, daily range): BP systolic 86–129; BP diastolic 48–67; PULSE 75–96; RESP 16–18; TEMP 97.6–98.1; O2SAT 91–97
[2017-06-05 05:15] LABS: AUTOMATED NEUTROPHIL # 8.4 TH/MM3 (1.8-7.7); BASOPHIL # 0.1 TH/MM3 (0-0.2); BASOPHIL % 0.8 % (0.0-2.0); EOSINOPHIL # 0.6 TH/MM3 (0-0.4); EOSINOPHIL % 5.1 % (0.0-4.0); HEMATOCRIT 31.9 % (35.0-46.0); HEMO FLAGS DIFF FINAL; LYMPH % 14.3 % (9.0-44.0); LYMPHOCYTE # 1.7 TH/MM3 (1.0-4.8); MEAN CELL VOLUME 75.6 FL (80.0-100.0); MEAN CORPUSCULAR HEMOGLOBIN 24.4 PG (27.0-34.0); MEAN CORPUSCULAR HGB CONC 32.2 % (32.0-36.0); MONO % 9.4 % (0.0-8.0); NEUT % 70.4 % (16.0-70.0); PLATELET COUNT 480 TH/MM3 (150-450); RED BLOOD COUNT 4.22 MIL/MM3 (4.00-5.30); RED CELL DISTRIBUTION WIDTH 21.2 % (11.6-17.2); WHITE BLOOD COUNT 11.9 TH/MM3 (4.0-11.0)
[2017-06-05 05:42] LABS: ANION GAP 12 MEQ/L (5-15); AST (GOT) 31 U/L (15-37); BICARBONATE 28.2 MEQ/L (21.0-32.0); BLOOD UREA NITROGEN 32 MG/DL (7-18); CHLORIDE 97 MEQ/L (98-107); GLOMERULAR FILTRATION RATE 39 ML/MIN (>89); POTASSIUM 3.8 MEQ/L (3.5-5.1); SODIUM (NA) 137 MEQ/L (136-145)
[2017-06-05 05:46] LABS: ALKALINE PHOSPHATASE 63 U/L (45-117); ALT (GPT) 23 U/L (10-53); TOTAL BILIRUBIN ADULT 0.6 MG/DL (0.2-1.0)
[2017-06-05] MEDS: POTASSIUM CHLORIDE 10 MEQ CONTROLLED RELEASE TAB PO SCH (10:26)
[2017-06-05] MEDS: FERROUS SULFATE 325 MG (65 MG ELEMENTAL IRON) TAB PO SCH ×2 (10:26→21:18)
[2017-06-05] MEDS: PANTOPRAZOLE SOD 40 MG DELAYED RELEASE TAB PO SCH (10:26)
[2017-06-05] MEDS: ENALAPRIL MALEATE 5 MG TAB PO SCH (10:27)
[2017-06-05] MEDS: SODIUM CHLORIDE 0.9% FLUSH 10 ML FLUSH IV FLUSH SCH ×2 (10:27→21:17)
[2017-06-05] MEDS ORDERED: POLYETHYLENE GLYCOL 17 GM PKG PO ONE (11:30)
--- NOTE | 2017-06-05 11:54 | HHI.PR ---
Subjective Remarks Follow up on patient with dizziness, lethargy and dyspnea. Patient seen and examined. Patient states she is feeling better. She is requesting to go home. Family is at the bedside whom she lives with. She denies any dizziness or lightheadedness. Denies any chest pain or dyspnea. Denies any shortness of breath. No BM since she was admitted. She denies any N/V or abdominal pain. She continues to have cramping in BLEs, worse since she got admitted. 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 Has not ever had an echocardiogram per patient and family report. Increase in BLE edema prior to admission. Patient has an upcoming appt with PCP Sandeep on Jun 26. Objective Vitals Vital Signs Date Time Temp Pulse Resp B/P (MAP) Pulse Ox O2 Delivery O2 Flow Rate FiO2 06/05/17 10:15 96 Nasal Cannula 3.00 06/05/17 07:33 97.7 82 16 103/63 (76) 97 06/05/17 04:00 78 06/05/17 01:35 98.1 87 18 129/61 (83) 96 06/04/17 22:07 98.0 79 18 126/60 (82) 99 06/04/17 20:00 98 Nasal Cannula 3.00 06/04/17 20:00 96 06/04/17 17:30 97.9 81 16 106/61 (76) 95 Nasal Cannula 3 06/04/17 17:15 80 16 102/60 (74) 95 Nasal Cannula 3 06/04/17 17:06 15 06/04/17 17:00 82 16 104/59 (74) 94 Nasal Cannula 3 06/04/17 16:45 87 16 103/55 (71) 94 Nasal Cannula 3 06/04/17 16:35 98.5 88 17 95/56 (69) 97 Nasal Cannula 4 06/04/17 15:26 97.5 87 16 121/58 (79) 97 06/04/17 15:09 84 06/04/17 14:26 97.4 92 18 127/62 96 06/04/17 13:05 81 95/51 06/04/17 11:38 97.6 90 16 135/52 (79) 99 I/O 06/04/17 06/04/17 06/04/17 06/05/17 06/05/17 06/05/17 07:00 15:00 23:00 07:00 15:00 23:00 Intake Total 920 ml 250 ml Output Total 2025 ml 1400 ml 450 ml 800 ml Balance -2025 ml -480 ml -200 ml -800 ml Intake Packed Cells 800 ml Blood Product IV Normal Saline Flush 120 ml Other 250 ml Output Urine Total 2025 ml 1400 ml 450 ml 800 ml Result Diagram: 06/05/17 0412 06/05/17 0412 Imaging Last Impressions Lower Extremity Ultrasound 06/04/17 0000 Signed Impressions: Service Date/Time: Sunday, June 04, 2017 10:08 - CONCLUSION: 1. No sonographic evidence for lower extremity DVT. Noel Anders MD Chest X-Ray 06/03/17 2304 Signed Impressions: Service Date/Time: Saturday, June 03, 2017 23:17 - CONCLUSION: 1. Cardiomegaly and findings of congestive heart failure. Jin Hodge MD Objective Remarks GENERAL: This is a well-nourished, well-developed elderly female patient, INAD. Awake and alert. Family at the bedside. SKIN: Cool and dry. Chronic thickened skin changes noted BLE, no e/o infection. HEAD: Atraumatic. Normocephalic. EYES: EOMI. No injection or drainage. ENT: Nose without bleeding, purulent drainage or septal hematoma. Airway patent. MMM. NECK: Trachea midline. CARDIOVASCULAR: Regular rate and rhythm. (+)murmur present. RESPIRATORY: Clear to auscultation. Breath sounds equal bilaterally. No wheezes , rales, or rhonchi. GASTROINTESTINAL: Abdomen soft, non-tender, nondistended. No guarding. MUSCULOSKELETAL: Extremities without clubbing, cyanosis or edema. Tenderness to palpation of BLE circumferentially. NEUROLOGICAL: Awake and alert. Oriented to self and place. Moves all extremities spontaneously and able to follow commands. Normal speech. Medications and IVs Current Medications Medications (Trade) Dose Ordered Sig/Cass Route Start Time Stop Time Status Last Admin (Lasix Inj) 20 mg BID@09,18 IV PUSH 06/04/17 09:00 Future Hold 06/04/17 18:08 (NS Flush) 2 ml UNSCH PRN IV FLUSH 06/04/17 02:15 (NS Flush) 2 ml BID IV FLUSH 06/04/17 09:00 06/05/17 10:27 (KCl) 10 meq BID PO 06/04/17 09:00 06/05/17 10:26 (Vasotec) 5 mg DAILY PO 06/04/17 09:00 06/05/17 10:27 (Ferrous Sulfate) 325 mg DAILY PO 06/04/17 09:00 06/05/17 10:26 (Hydrodiuril) 25 mg DAILY PO 06/04/17 09:00 Future Hold 06/04/17 09:36 (Protonix) 40 mg DAILY PO 06/04/17 09:00 06/05/17 10:26 (Pravachol) 100 mg HS PO 06/04/17 21:00 06/04/17 20:38 (Tylenol) 650 mg Q4H PRN PO 06/04/17 10:00 06/04/17 11:10 Miscellaneous Information ALL NURSING DEPARTME... UNSCH PRN .XX 06/04/17 16:21 06/05/17 16:20 A/P Problem List: (1) Anemia ICD Code: D64.9 - Anemia, unspecified Status: Acute (2) Congestive heart failure ICD Code: I50.9 - Congestive heart failure Status: Acute (3) Hypertension ICD Code: I10 - Hypertension Status: Acute Assessment and Plan 86-year-old female with a past medical history significant for CHF, hypertension , hyperlipidemia and previous anemia presents to the emergency department with altered mental status, increasing shortness of breath, anemia and CHF exacerbation. Anemia/concern for GI bleed JORGE - Recent admission in March of this year due to GIB. EGD showed esophagitis, gastritis and duodenitis. Colonoscopy revealed diverticulosis and hemorrhoids. - Hgb 7.5, Hct 23.1, s/p transfusion 2 units. Hgb improved to 10.3. - ? GI bleed once again given her recent history. GI consulted. EGD completed yesterday without any abnormal findings. Appreciate GI recs. - Hemoccult pending. - Iron 381, TIBC 421, %sat 90.4, Ferritin 8, labs obtained following transfusion. Check B12 and folate. - continue on po iron supplementation but increase to BID - Continue Protonix CHF exacerbation - BNP not elevated however chest x-ray showed interstitial edema, images reviewed by me. - Patient status post 80 mg of IV Lasix by paramedics prior to her arrival in the emergency department. - Currently requiring 3 L nasal cannula, O2 sats in high 90's. Attempt to wean off O2. - good diuresis with IV Lasix. Hold for now secondary to LEONIE and low BP. - Echo ordered LEONIE on ?CKD - patient denies any hx of chronic kidney disease - creatinines baseline appears to be around 1. cr 1.30 this am. - hold IV Lasix and HCTZ - avoid nephrotoxic agents - monitor kidney function - armando placed since admit to monitor UOP. D/C armando. - am labs ordered Hypertension, chronic - hypotensive at present - patient reports dizziness at home prior to admission - check orthostatic BP measurements - Hold home enalapril and HCTZ for now Bilateral leg pain, chronic ppr - Leg US negative for DVT - Tylenol for pain PRN - PT eval/tx Hyperlipidemia, chronic - Continue home pravastatin Constipation - Eilsa colace BID - Miralax now - monitor for BM DVT prophylaxis - Heparin sq Discussed with patient, family and Belen Dove Jun 05, 2017 11:54
--- NOTE | 2017-06-05 12:18 | RADRPT ---
EXAM DATE/TIME: 06/05/2017 11:44 [facility] COMPARISON: CHEST SINGLE AP, June 03, 2017, 23:17. INDICATIONS : Congestive heart failure. MEDICAL HISTORY : Hypercholesterolemia. Hypertension. Congestive heart failure. COPD. Arthritis. SURGICAL HISTORY : Hysterectomy. ENCOUNTER: Subsequent ACUITY: 3 days PAIN SCORE: 0/10 LOCATION: chest FINDINGS: A single view of the chest demonstrates bilateral pulmonary edema which is essentially stable compare d to the prior study. The heart size is stable. No significant pleural effusions. No evidence of pneu mothorax. The bony structures are stable.. CONCLUSION: There continues to be stable congestive heart failure compared to the prior study. Raffaele Jara MD on June 05, 2017 at 12:16 Board Certified Radiologist. This report was verified electronically.
[2017-06-05] MEDS: HEPARIN SODIUM - SQ 10,000 UNITS/ML VIAL SQ SCH (12:52)
--- NOTE | 2017-06-05 12:55 | HHI.GIFU ---
Subjective Remarks On side of bed with Physical Therapy. Had pancakes for breakfast. No n/v/ abdominal pain. No bleeding. (Pinky Snow) Objective Vitals I&O Vital Signs Date Time Temp Pulse Resp B/P (MAP) Pulse Ox O2 Delivery O2 Flow Rate FiO2 06/05/17 12:01 97.6 76 16 86/48 (61) 93 96/63 (74) 97/55 (69) 06/05/17 10:15 96 Nasal Cannula 3.00 06/05/17 09:31 84 06/05/17 07:33 97.7 82 16 103/63 (76) 97 06/05/17 04:00 78 06/05/17 01:35 98.1 87 18 129/61 (83) 96 06/04/17 22:07 98.0 79 18 126/60 (82) 99 06/04/17 20:00 98 Nasal Cannula 3.00 06/04/17 20:00 96 06/04/17 17:30 97.9 81 16 106/61 (76) 95 Nasal Cannula 3 06/04/17 17:15 80 16 102/60 (74) 95 Nasal Cannula 3 06/04/17 17:06 15 06/04/17 17:00 82 16 104/59 (74) 94 Nasal Cannula 3 06/04/17 16:45 87 16 103/55 (71) 94 Nasal Cannula 3 06/04/17 16:35 98.5 88 17 95/56 (69) 97 Nasal Cannula 4 06/04/17 15:26 97.5 87 16 121/58 (79) 97 06/04/17 15:09 84 06/04/17 14:26 97.4 92 18 127/62 96 06/04/17 13:05 81 95/51 I/O 06/04/17 06/04/17 06/04/17 06/05/17 06/05/17 06/05/17 07:00 15:00 23:00 07:00 15:00 23:00 Intake Total 920 ml 250 ml Output Total 2025 ml 1400 ml 450 ml 800 ml Balance -2025 ml -480 ml -200 ml -800 ml Intake Packed Cells 800 ml Blood Product IV Normal Saline Flush 120 ml Other 250 ml Output Urine Total 2025 ml 1400 ml 450 ml 800 ml Laboratory Laboratory Tests Test 06/04/17 14:56 06/05/17 04:12 White Blood Count 9.1 11.9 Red Blood Count 3.77 4.22 Hemoglobin 9.3 10.3 Hematocrit 27.9 31.9 Mean Corpuscular Volume 74.0 75.6 Mean Corpuscular Hemoglobin 24.7 24.4 Mean Corpuscular Hemoglobin Concent 33.3 32.2 Red Cell Distribution Width 21.5 21.2 Platelet Count 476 480 Mean Platelet Volume 7.0 7.0 Neutrophils (%) (Auto) 68.2 70.4 Lymphocytes (%) (Auto) 15.4 14.3 Monocytes (%) (Auto) 12.2 9.4 Eosinophils (%) (Auto) 3.3 5.1 Basophils (%) (Auto) 0.9 0.8 Neutrophils # (Auto) 6.2 8.4 Lymphocytes # (Auto) 1.4 1.7 Monocytes # (Auto) 1.1 1.1 Eosinophils # (Auto) 0.3 0.6 Basophils # (Auto) 0.1 0.1 CBC Comment DIFF FINAL DIFF FINAL Differential Comment Blood Urea Nitrogen 31 32 Creatinine 1.18 1.30 Random Glucose 93 79 Calcium Level 8.7 8.5 Sodium Level 136 137 Potassium Level 3.8 3.8 Chloride Level 97 97 Carbon Dioxide Level 29.0 28.2 Anion Gap 10 12 Estimat Glomerular Filtration Rate 43 39 Magnesium Level 1.6 Iron Level 381 Total Iron Binding Capacity 421 Percent Iron Saturation 90.4 Ferritin 8 Total Protein 6.8 Albumin 3.1 Alkaline Phosphatase 63 Aspartate Amino Transf (AST/SGOT) 31 Alanine Aminotransferase (ALT/SGPT) 23 Total Bilirubin 0.6 Date/Time Source Procedure Growth Status 06/03/17 23:15 Blood Peripheral Aerobic Blood Culture - Preliminary NO GROWTH IN 2 DAYS Resulted 06/03/17 23:15 Blood Peripheral Anaerobic Blood Culture - Preliminary NO GROWTH IN 2 DAYS Resulted Imaging Last Impressions Chest X-Ray 06/05/17 0000 Signed Impressions: Service Date/Time: Monday, June 05, 2017 11:44 - CONCLUSION: There continues to be stable congestive heart failure compared to the prior study. Raffaele Jara MD Lower Extremity Ultrasound 06/04/17 0000 Signed Impressions: Service Date/Time: Sunday, June 04, 2017 10:08 - CONCLUSION: 1. No sonographic evidence for lower extremity DVT. Noel Bozorgmanesh, MD Physical Exam HEENT: Normocephalic; atraumatic; no jaundice. CHEST: CTA CARDIAC: RRR ABDOMEN: Soft, nondistended, nontender; no hepatosplenomegaly; bowel sounds are present in all four quadrants. EXTREMITIES: BLE edema. SKIN: Normal; no rash; no jaundice. CHARCOAL KILN BURNER: No focal deficits; alert and oriented times three. (Pinky Snow) Assessment and Plan Plan ASSESSMENT: - Anemia. Brought to ER for weakness, found to have microcytic anemia. She has hx of JORGE and was recently hospitalized in [place]. EGD (04/08/17)----> 1. Esophagitis distal esophagus -biopsy, gastritis antrum- biopsy, duodenitis -second portion-biopsy, 2. Retroflexed views revealed a hiatal hernia. Pathology revealed mild acute duodenitis, mild chronic gastritis, negative for helicobacter pylori, distal esophagus biopsy acutely and chronically inflamed intestinalized mucosa, consistent with escobar's esophagus. No squamous mucosa present, negative for dysplasia or malignancy. Colonoscopy (04/11/17)---> 1. Diverticulosis sigmoid,descending, 2. Retroflexed views revealed internal hemorrhoids, 3. Retroflexed views revealed medium internal hemorrhoids, 4. Revealed external hemorrhoids. Recently off PPI for a few days and had abdominal pain while she was off. She is back on and her son reports this has improved. S/P EGD (06/04/17)---> 1. 2 cm hiatal hernia 2. The mucosa of the stomach appeared normal 3. Normal duodenal mucosa in the bulb and second portion of the duodenum. HH stable. 10.3/31.9. PPI. - Epigastric tenderness on exam. Improved. EGD as above. - GERD. PPI - HTN, CHF, Hyperlipidemia, COPD, CKD per attending. PLAN: - SUSANA - PPI - Monitor HH - Transfuse as needed - Capsule endoscopy as outpatient - FU SUSI 2 weeks - GI will sign off, please reconsult as needed - Pt seen and examined by Dr. Prajapati and myself and this note is written on his behalf (Pinky Snow) Physician Comments Seen and examined, plan as above. Please notify us if needed. (Victorina,MohPinky Crowder Jun 05, 2017 12:55 Adelia Prajapati MD Jun 05, 2017 13:23
[2017-06-05] MEDS ORDERED: DOCUSATE SODIUM 50 MG/SENNA 8.6 MG TAB PO ONE (15:15)
--- NOTE | 2017-06-05 19:26 | HHI.PR ---
Subjective Remarks NOT SEEN Objective Vitals Vital Signs Date Time Temp Pulse Resp B/P (MAP) Pulse Ox O2 Delivery O2 Flow Rate FiO2 06/05/17 17:01 98.1 75 16 108/53 (71) 93 06/05/17 15:03 88 06/05/17 12:01 97.6 76 16 86/48 (61) 93 96/63 (74) 97/55 (69) 06/05/17 10:15 96 Nasal Cannula 3.00 06/05/17 09:31 84 06/05/17 07:33 97.7 82 16 103/63 (76) 97 06/05/17 04:00 78 06/05/17 01:35 98.1 87 18 129/61 (83) 96 06/04/17 22:07 98.0 79 18 126/60 (82) 99 06/04/17 20:00 98 Nasal Cannula 3.00 06/04/17 20:00 96 I/O 06/04/17 06/04/17 06/04/17 06/05/17 06/05/17 06/05/17 07:00 15:00 23:00 07:00 15:00 23:00 Intake Total 920 ml 250 ml Output Total 2025 ml 1400 ml 450 ml 800 ml 1500 ml Balance -2025 ml -480 ml -200 ml -800 ml -1500 ml Intake Packed Cells 800 ml Blood Product IV Normal Saline Flush 120 ml Other 250 ml Output Urine Total 2025 ml 1400 ml 450 ml 800 ml 1500 ml Result Diagram: 06/05/17 0412 06/05/17 0412 Imaging Last Impressions Chest X-Ray 06/05/17 0000 Signed Impressions: Service Date/Time: Monday, June 05, 2017 11:44 - CONCLUSION: There continues to be stable congestive heart failure compared to the prior study. Raffaele Jara MD Lower Extremity Ultrasound 06/04/17 0000 Signed Impressions: Service Date/Time: Sunday, June 04, 2017 10:08 - CONCLUSION: 1. No sonographic evidence for lower extremity DVT. Noel Anders MD Objective Remarks GENERAL: This is a well-nourished, well-developed elderly female patient, INAD. Awake and alert. Family at the bedside. SKIN: Cool and dry. Chronic thickened skin changes noted BLE, no e/o infection. HEAD: Atraumatic. Normocephalic. EYES: EOMI. No injection or drainage. ENT: Nose without bleeding, purulent drainage or septal hematoma. Airway patent. MMM. NECK: Trachea midline. CARDIOVASCULAR: Regular rate and rhythm without murmurs, gallops, or rubs. RESPIRATORY: Clear to auscultation. Breath sounds equal bilaterally. No wheezes , rales, or rhonchi. GASTROINTESTINAL: Abdomen soft, non-tender, nondistended. No guarding. MUSCULOSKELETAL: Extremities without clubbing, cyanosis or edema. Tenderness to palpation of BLE circumferentially. NEUROLOGICAL: Awake and alert. Oriented to self and place. Moves all extremities spontaneously and able to follow commands. Normal speech. A/P Problem List: (1) Anemia ICD Code: D64.9 - Anemia, unspecified Status: Acute (2) Congestive heart failure ICD Code: I50.9 - Congestive heart failure Status: Acute (3) Hypertension ICD Code: I10 - Hypertension Status: Acute Assessment and Plan 86-year-old female with a past medical history significant for CHF, hypertension , hyperlipidemia and previous anemia presents to the emergency department with altered mental status, increasing shortness of breath, anemia and CHF exacerbation. Anemia/concern for GI bleed JORGE - Recent admission in March of this year due to GIB. EGD showed esophagitis, gastritis and duodenitis. Colonoscopy revealed diverticulosis and hemorrhoids. - Hgb 7.5, Hct 23.1, s/p transfusion 2 units. Hgb improved to 10.3. - ? GI bleed once again given her recent history. GI consulted. EGD completed yesterday without any abnormal findings. Appreciate GI recs. - Hemoccult pending. - Iron 381, TIBC 421, %sat 90.4, Ferritin 8, labs obtained following transfusion. Check B12 and folate. - continue on po iron supplementation but increase to BID - Continue Protonix CHF exacerbation - BNP not elevated however chest x-ray showed interstitial edema, images reviewed by me. - Patient status post 80 mg of IV Lasix by paramedics prior to her arrival in the emergency department. - Currently requiring 3 L nasal cannula, O2 sats in high 90's. Attempt to wean off O2. - good diuresis with IV Lasix. Hold for now secondary to LEONIE and low BP. - Echo ordered LEONIE on ?CKD - patient denies any hx of chronic kidney disease - creatinines baseline appears to be around 1. cr 1.30 this am. - hold IV Lasix and HCTZ - avoid nephrotoxic agents - monitor kidney function - armando placed since admit to monitor UOP. D/C armando. - am labs ordered Hypertension, chronic - hypotensive at present - patient reports dizziness at home prior to admission - check orthostatic BP measurements - Hold home enalapril and HCTZ for now Bilateral leg pain, chronic ppr - Leg US negative for DVT - Tylenol for pain PRN - PT eval/tx Hyperlipidemia, chronic - Continue home pravastatin Constipation - Elisa colace BID - Miralax now - monitor for BM DVT prophylaxis - Heparin sq Keshawn dOell MD Jun 05, 2017 19:26
[2017-06-05] MEDS: PRAVASTATIN SOD 80 MG TAB PO SCH (21:17)
[2017-06-05] MEDS: DOCUSATE SODIUM 50 MG/SENNA 8.6 MG TAB PO SCH (21:18)
[2017-06-05] MEDS: ASCORBIC ACID 500 MG TAB PO SCH (21:18)
[2017-06-06] VITALS (9 sets, daily range): BP systolic 108–128; BP diastolic 58–66; PULSE 74–96; RESP 16–18; TEMP 97.4–98.4; O2SAT 92–97
[2017-06-06 00:54] LABS: MAGNESIUM 1.6 MG/DL (1.5-2.5)
[2017-06-06] MEDS: HEPARIN SODIUM - SQ 10,000 UNITS/ML VIAL SQ SCH ×2 (01:28→13:00)
[2017-06-06 05:47] LABS: BICARBONATE 26.8 MEQ/L (21.0-32.0); MAGNESIUM 1.6 MG/DL (1.5-2.5); POTASSIUM 3.4 MEQ/L (3.5-5.1)
[2017-06-06] MEDS ORDERED: POTASSIUM CHLORIDE 10 MEQ CONTROLLED RELEASE TAB PO ONE (09:00)
[2017-06-06] MEDS ORDERED: ASCORBIC ACID 500 MG TAB PO SCH (09:00)
[2017-06-06] MEDS ORDERED: MAGNESIUM OXIDE 400 MG TAB PO ONE (09:00)
[2017-06-06] MEDS: PANTOPRAZOLE SOD 40 MG DELAYED RELEASE TAB PO SCH (09:08)
[2017-06-06] MEDS: DOCUSATE SODIUM 50 MG/SENNA 8.6 MG TAB PO SCH (09:08)
[2017-06-06] MEDS: ASCORBIC ACID 500 MG TAB PO SCH (09:08)
[2017-06-06] MEDS: SODIUM CHLORIDE 0.9% FLUSH 10 ML FLUSH IV FLUSH SCH (09:08)
[2017-06-06] MEDS: FERROUS SULFATE 325 MG (65 MG ELEMENTAL IRON) TAB PO SCH (09:09)
[2017-06-06] MEDS ORDERED: FUROSEMIDE 40 MG TAB PO ONE (09:45)
--- NOTE | 2017-06-06 09:46 | HHI.FF ---
Face to Face Verification Diagnosis: (1) Congestive heart failure (2) Hypertension (3) Anemia Physical Therapy Order: Evaluate and Treat, Improve ambulation, Strength and gait training Home Health Nursing Order: Medical education Signs/symptoms of disease process CHF education Medication education-adverse effect Nursing assessment with vital signs I have seen patient Debby José on 06/06/17. My clinical findings support the need for the requested home health care services because: Ltd mobility - disease progression Patient has SOB Deconditioned w/ increased weakness High risk of falls I certify that my clinical findings support that this patient is homebound because: Unsteady gait/balance Unsafe to leave home unassisted Unable to use public transportation Poor cardiac reserve Belen Tyler Jun 06, 2017 09:46
--- NOTE | 2017-06-06 10:53 | HHI.DCPOC ---
Discharge Care Plan Diagnosis: (1) Iron deficiency anemia (2) Congestive heart failure (3) Acute kidney injury (4) Anemia (5) Hypertension Goals to Promote Your Health * To prevent worsening of your condition and complications * To maintain your health at the optimal level Directions to Meet Your Goals Please limit your fluid intake to 2L a day, limit your salt intake to 2gm daily and weigh yourself daily. If you see a 2 pound weight gain in 2 days, please contact your physician. Take your medications as prescribed Follow your dietary instruction Follow activity as directed Keep your appointments as scheduled Take your immunizations and boosters as scheduled If your symptoms worsen call your PCP, if no PCP go to Urgent Care Center or Emergency Room Smoking is Dangerous to Your Health. Avoid second hand smoke Call the 24-hour hour crisis hotline for domestic abuse at Belen Tyler Jun 06, 2017 10:53
--- NOTE | 2017-06-06 10:56 | HHI.PR ---
Subjective Remarks Follow-up heart failure. Improving shortness of breath. Patient ambulated hallway. She wants to go home. Seen with family, CHF education provided. Discussed with RN Objective Vitals Vital Signs Date Time Temp Pulse Resp B/P (MAP) Pulse Ox O2 Delivery O2 Flow Rate FiO2 06/06/17 08:04 97.8 79 18 112/63 (79) 97 06/06/17 08:03 95 21 06/06/17 04:16 84 06/06/17 02:59 98.4 86 18 109/58 (75) 92 06/06/17 01:27 96 06/05/17 23:12 98.1 92 16 125/64 (84) 91 06/05/17 20:19 91 06/05/17 20:18 98.0 81 17 104/67 (79) 93 06/05/17 20:00 96 06/05/17 17:01 98.1 75 16 108/53 (71) 93 06/05/17 15:03 88 06/05/17 12:01 97.6 76 16 86/48 (61) 93 96/63 (74) 97/55 (69) I/O 06/05/17 06/05/17 06/05/17 06/06/17 06/06/17 06/06/17 07:00 15:00 23:00 07:00 15:00 23:00 Output Total 800 ml 1500 ml Balance -800 ml -1500 ml Output Urine Total 800 ml 1500 ml Result Diagram: 06/05/17 0412 06/06/17 0442 Imaging Last Impressions Chest X-Ray 06/05/17 0000 Signed Impressions: Service Date/Time: Monday, June 05, 2017 11:44 - CONCLUSION: There continues to be stable congestive heart failure compared to the prior study. Raffaele Jara MD Lower Extremity Ultrasound 06/04/17 0000 Signed Impressions: Service Date/Time: Sunday, June 04, 2017 10:08 - CONCLUSION: 1. No sonographic evidence for lower extremity DVT. Noel Anders MD Objective Remarks GENERAL: This is a well-nourished, well-developed elderly female patient, NAD. Awake and alert. Family at the bedside. SKIN: Cool and dry. Chronic thickened skin changes noted BLE, no e/o infection. HEAD: Atraumatic. Normocephalic. EYES: EOMI. No injection or drainage. ENT: Nose without bleeding, purulent drainage or septal hematoma. Airway patent. MMM. NECK: Trachea midline. CARDIOVASCULAR: Regular rate and rhythm without gallops, or rubs. Systolic murmur noted RESPIRATORY: Breath sounds equal bilaterally. No wheezes or rhonchi. Crackles left base GASTROINTESTINAL: Abdomen soft, non-tender, nondistended. No guarding. MUSCULOSKELETAL: Extremities without clubbing, cyanosis or edema. Tenderness to palpation of BLE circumferentially. NEUROLOGICAL: Awake and alert. Oriented to self and place. Moves all extremities spontaneously and able to follow commands. Normal speech. Procedures none A/P Problem List: (1) Anemia ICD Code: D64.9 - Anemia, unspecified Status: Acute (2) Congestive heart failure ICD Code: I50.9 - Congestive heart failure Status: Acute (3) Hypertension ICD Code: I10 - Hypertension Status: Acute Assessment and Plan 86-year-old female with a past medical history significant for CHF, hypertension , hyperlipidemia and previous anemia presents to the emergency department with altered mental status, increasing shortness of breath, anemia and CHF exacerbation. Anemia/concern for GI bleed JORGE - Recent admission in March of this year due to GIB. EGD showed esophagitis, gastritis and duodenitis. Colonoscopy revealed diverticulosis and hemorrhoids. - Hgb 7.5, Hct 23.1, s/p transfusion 2 units. Hgb improved to 10.3. - ? GI bleed once again given her recent history. GI consulted. EGD completed without any abnormal findings. Appreciate GI recs. - continue on po iron supplementation but increase to BID. Iron, B-12 and folate studies reviewed - Continue Protonix - GI cleared patient for discharge for outpatient capsule endoscopy CHF exacerbation - BNP not elevated however chest x-ray showed interstitial edema, images reviewed by me. - Patient status post 80 mg of IV Lasix by paramedics prior to her arrival in the emergency department. - Currently requiring 3 L nasal cannula, O2 sats in high 90's. Attempt to wean off O2. - good diuresis with IV Lasix. - Echo ordered - Discontinue hydrochlorothiazide and start Lasix with 20 mg daily po. Will give 40 mg by mouth 1 today with close follow-up of renal function. 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 Nonoliguric - patient denies any hx of chronic kidney disease - Creatinine slightly up but stable. - hold IV Lasix , enalapril and HCTZ - avoid nephrotoxic agents - monitor kidney function - armando placed since admit to monitor UOP. D/C armando. - am labs ordered Hypertension, chronic - hypotensive resolved - patient reports dizziness at home prior to admission - Hold home enalapril and HCTZ for now Bilateral leg pain, chronic ppr - Leg US negative for DVT - Tylenol for pain PRN - PT eval/tx Hyperlipidemia, chronic - Continue home pravastatin Constipation - Elisa colace BID - Miralax now - monitor for BM DVT prophylaxis - Heparin sq Discharge Planning Stable for discharge pending echocardiogram Keshawn Odell MD Jun 06, 2017 10:56
[2017-06-06] MEDS ORDERED: PANT40TA3 PO (10:58)
[2017-06-06] MEDS ORDERED: FURO20TA PO (10:58)
[2017-06-06] MEDS ORDERED: FERR325T20 PO (10:58)
[2017-06-06] MEDS ORDERED: VITA500T2 PO (10:58)
--- NOTE | 2017-06-06 16:14 | HHI.DS ---
Discharge Summary Admission Date Jun 04, 2017 at 01:04 Discharge Date: Jun 06, 2017 Admitting Diagnosis CHF (1) Anemia ICD Code: D64.9 - Anemia, unspecified Diagnosis: Principal Status: Acute (2) Congestive heart failure ICD Code: I50.9 - Congestive heart failure Diagnosis: Principal Status: Acute (3) Hypertension ICD Code: I10 - Hypertension Diagnosis: Principal Status: Acute Procedures EGD Brief History - From Admission 86-year-old female recently seen in the emergency department for altered mental status found to be severely anemic and transfused 2 units presents to the emergency department after becoming more lethargic and short of breath over the past few days. The patient has a history of CHF and was given 3 sublingual nitroglycerin and 80 mg of IV Lasix by paramedics. Upon arrival to the emergency department, the patient's H/H was 7.5/23.1. When she was discharged in March of this year her H&H was 9.9/31.2. At the time of her interview, the patient is alone in her room complaining of severe lower extremity leg cramping. She is unable to answer any of my questions but is currently requiring 3 L nasal cannula. Chest x-ray significant for interstitial edema. BNP 69. Patient also with mild LEONIE with a creatinine of 1.18, baseline 0.87. Diffuse crackles bilaterally on lung exam. CBC/BMP: 06/05/17 0412 06/06/17 0442 Significant Findings Laboratory Tests Test 06/03/17 23:15 06/04/17 14:56 06/05/17 04:12 06/06/17 04:42 Red Blood Count 3.18 MIL/MM3 (4.00-5.30) 3.77 MIL/MM3 (4.00-5.30) Hemoglobin 7.5 GM/DL (11.6-15.3) 9.3 GM/DL (11.6-15.3) 10.3 GM/DL (11.6-15.3) Hematocrit 23.1 % (35.0-46.0) 27.9 % (35.0-46.0) 31.9 % (35.0-46.0) Mean Corpuscular Volume 72.8 FL (80.0-100.0) 74.0 FL (80.0-100.0) 75.6 FL (80.0-100.0) Mean Corpuscular Hemoglobin 23.6 PG (27.0-34.0) 24.7 PG (27.0-34.0) 24.4 PG (27.0-34.0) Red Cell Distribution Width 21.6 % (11.6-17.2) 21.5 % (11.6-17.2) 21.2 % (11.6-17.2) Platelet Count 535 TH/MM3 (150-450) 476 TH/MM3 (150-450) 480 TH/MM3 (150-450) Monocytes (%) (Auto) 8.9 % (0.0-8.0) 12.2 % (0.0-8.0) 9.4 % (0.0-8.0) Eosinophils (%) (Auto) 5.8 % (0.0-4.0) 5.1 % (0.0-4.0) Monocytes # (Auto) 1.0 TH/MM3 (0-0.9) 1.1 TH/MM3 (0-0.9) 1.1 TH/MM3 (0-0.9) Eosinophils # (Auto) 0.6 TH/MM3 (0-0.4) 0.6 TH/MM3 (0-0.4) Activated Partial Thromboplast Time 18.3 SEC (24.3-30.1) Blood Urea Nitrogen 32 MG/DL (7-18) 31 MG/DL (7-18) 32 MG/DL (7-18) 38 MG/DL (7-18) Creatinine 1.18 MG/DL (0.50-1.00) 1.18 MG/DL (0.50-1.00) 1.30 MG/DL (0.50-1.00) 1.40 MG/DL (0.50-1.00) Albumin 3.0 GM/DL (3.4-5.0) 3.1 GM/DL (3.4-5.0) Calcium Level 8.3 MG/DL (8.5-10.1) Estimat Glomerular Filtration Rate 43 ML/MIN (>89) 43 ML/MIN (>89) 39 ML/MIN (>89) 36 ML/MIN (>89) Troponin I LESS THAN 0.02 NG/ML Chloride Level 97 MEQ/L (98-107) 97 MEQ/L (98-107) 93 MEQ/L (98-107) Iron Level 381 MCG/DL (50-170) Percent Iron Saturation 90.4 % (20-50) White Blood Count 11.9 TH/MM3 (4.0-11.0) Neutrophils (%) (Auto) 70.4 % (16.0-70.0) Neutrophils # (Auto) 8.4 TH/MM3 (1.8-7.7) Phosphorus Level 5.2 MG/DL (2.5-4.9) Folate GREATER THAN 20.0 NG/ML Sodium Level 132 MEQ/L (136-145) Potassium Level 3.4 MEQ/L (3.5-5.1) Imaging Last Impressions Chest X-Ray 06/05/17 0000 Signed Impressions: Service Date/Time: Monday, June 05, 2017 11:44 - CONCLUSION: There continues to be stable congestive heart failure compared to the prior study. Raffaele Jara MD Lower Extremity Ultrasound 06/04/17 0000 Signed Impressions: Service Date/Time: Sunday, June 04, 2017 10:08 - CONCLUSION: 1. No sonographic evidence for lower extremity DVT. Noel Anders MD PE at Discharge GENERAL: This is a well-nourished, well-developed elderly female patient, NAD. Awake and alert. Family at the bedside. SKIN: Cool and dry. Chronic thickened skin changes noted BLE, no e/o infection. HEAD: Atraumatic. Normocephalic. EYES: EOMI. No injection or drainage. ENT: Nose without bleeding, purulent drainage or septal hematoma. Airway patent. MMM. NECK: Trachea midline. CARDIOVASCULAR: Regular rate and rhythm without gallops, or rubs. Systolic murmur noted RESPIRATORY: Breath sounds equal bilaterally. No wheezes or rhonchi. Crackles left base GASTROINTESTINAL: Abdomen soft, non-tender, nondistended. No guarding. MUSCULOSKELETAL: Extremities without clubbing, cyanosis or edema. Tenderness to palpation of BLE circumferentially. NEUROLOGICAL: Awake and alert. Oriented to self and place. Moves all extremities spontaneously and able to follow commands. Normal speech. Hospital Course 86-year-old female with a past medical history significant for CHF, hypertension , hyperlipidemia and previous anemia presents to the emergency department with altered mental status, increasing shortness of breath, anemia and CHF exacerbation. Anemia/concern for GI bleed JORGE - Recent admission in March of this year due to GIB. EGD showed esophagitis, gastritis and duodenitis. Colonoscopy revealed diverticulosis and hemorrhoids. - Hgb 7.5, Hct 23.1, s/p transfusion 2 units. Hgb improved to 10.3. - ? GI bleed once again given her recent history. GI consulted. EGD completed without any abnormal findings. Appreciate GI recs. - continue on po iron supplementation but increase to BID. Iron, B-12 and folate studies reviewed - Continue Protonix - GI cleared patient for discharge for outpatient capsule endoscopy CHF exacerbation - BNP not elevated however chest x-ray showed interstitial edema, images reviewed by me. - Patient status post 80 mg of IV Lasix by paramedics prior to her arrival in the emergency department. - Currently requiring 3 L nasal cannula, O2 sats in high 90's. Attempt to wean off O2. - good diuresis with IV Lasix. - Echo ordered - Discontinue hydrochlorothiazide and start Lasix with 20 mg daily po. Will give 40 mg by mouth 1 today with close follow-up of renal function. 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 Nonoliguric - patient denies any hx of chronic kidney disease - Creatinine slightly up but stable. - hold IV Lasix , enalapril and HCTZ - avoid nephrotoxic agents - monitor kidney function - armando placed since admit to monitor UOP. D/C armando. - am labs ordered Hypertension, chronic - hypotensive resolved - patient reports dizziness at home prior to admission - Hold home enalapril and HCTZ for now Bilateral leg pain, chronic ppr - Leg US negative for DVT - Tylenol for pain PRN - PT eval/tx Hyperlipidemia, chronic - Continue home pravastatin Constipation - Elisa colace BID - Miralax now - monitor for BM DVT prophylaxis - Heparin sq Pt Condition on Discharge: Stable Discharge Disposition: Disch w/ Home Health Serv Discharge Time: > 30 minutes Discharge Instructions DIET: Follow Instructions for: Heart Healthy Diet, Low Sodium Diet Fluid Restrictions: 2 liters Activities you can perform: See Additionl Instruction Other Activity Instructions: per PT recommendations Follow up Referrals: Cardiology - 1 Week Gastroenterology - 2 Weeks @ [facility] PCP Follow-up - 2-3 Days New Orders: BASIC METABOLIC PROF - 06/07/17 New Medications: Ascorbic Acid (C 500/Parvin Hips) 500 Mg Tab 500 MG PO BID for Nutritional Supplement for 30 Days, #60 TAB Ferrous Sulfate (Ferosul) 325 Mg (65 Mg Iron) Tablet 325 MG PO BID for ANEMIA for 30 Days, #60 TAB Furosemide (Furosemide) 20 Mg Tab 20 MG PO DAILY for CONGESTIVE HEART FAILURE for 30 Days, #30 TAB Continued Medications: Pantoprazole (Pantoprazole) 40 Mg Tab 40 MG PO DAILY for Reflux for 30 Days, #30 TAB 0 Refills (This prescription has been renewed) Pravastatin (Pravastatin) 80 Mg Tab 100 MG PO HS for Cholesterol Management, #30 TAB 0 Refills Discontinued Medications: Enalapril (Enalapril) 5 Mg Tab 5 MG PO DAILY, #30 TAB 0 Refills Ferrous Sulfate (Ferrous Sulfate) 325 Mg (65 Mg Iron) Tablet 325 MG PO DAILY for Nutritional Supplement, #30 TAB 0 Refills Hydrochlorothiazide (Hydrochlorothiazide) 25 Mg Tab 25 MG PO DAILY, #30 TAB 0 Refills Additional Information Pt requesting dc before ECHO results known. To follow up with PCP. If decreased systolic function, consider restarting BRYSON inhibitor if renal function improves and initiating beta niles if BP stable Keshawn Odell MD Jun 06, 2017 16:13
[2017-06-07] MEDS ORDERED: FUROSEMIDE 20 MG TAB PO SCH (09:00)
--- NOTE | 2017-06-08 09:19 | ECHRPT ---
Indication: CONCLUSIONS Normal left ventricular size. Mild concentric left ventricular hypertrophy. The left ventricular systolic function is normal, EF 60%. The left atrial size is moderately dilated. Mild mitral valve regurgitation. Mild mitral annular calcification. There is mild tricuspid valve regurgitation. The estimated pulmonary arterial pressure is 41 mmHg. BP: 109 / 58 HR: Rhythm: Sinus MEASUREMENTS (Male / Female) Normal Values Technical Quality:Fair 2D ECHO LV Diastolic Diameter PLAX 3.9 cm 4.2 - 5.9 / 3.9 - 5.3 cm LV Systolic Diameter PLAX 2.2 cm IVS Diastolic Thickness 1.2 cm 0.6 - 1.0 / 0.6 - 0.9 cm LVPW Diastolic Thickness 1.2 cm 0.6 - 1.0 / 0.6 - 0.9 cm LV Relative Wall Thickness 0.6 LVOT Diameter 2.2 cm Aortic Root Diameter 2.9 cm LA Systolic Diameter LX 2.6 cm 3.0 - 4.0 / 2.7 - 3.8 cm M-MODE AV Cusp Separation MM 2.1 cm DOPPLER AV Peak Velocity 158.5 cm/s AV Peak Gradient 10.0 mmHg AV Mean Gradient 7.0 mmHg AV Velocity Time Integral 33.6 cm LVOT Peak Velocity 132.0 cm/s LVOT Peak Gradient 7.0 mmHg LVOT Velocity Time Integral 32.6 cm AV Area Cont Eq vti 3.7 cm AV Area Cont Eq pk 3.2 cm Mitral E Point Velocity 86.6 cm/s Mitral A Point Velocity 130.0 cm/s Mitral E to A Ratio 0.7 LV E' Lateral Velocity 6.3 cm/s Mitral E to LV E' Lateral Ratio 13.7 LV E' Septal Velocity 3.8 cm/s Mitral E to LV E' Septal Ratio 22.8 TR Peak Velocity 277.0 cm/s TR Peak Gradient 30.7 mmHg Right Atrial Pressure 10.0 mmHg Pulmonary Artery Systolic Pressu 40.7 mmHg Right Ventricular Systolic Press 40.7 mmHg PV Peak Velocity 108.0 cm/s PV Peak Gradient 4.7 mmHg FINDINGS LEFT VENTRICLE Normal left ventricular size. Mild concentric left ventricular hypertrophy. The left ventricular systolic function is normal, EF 60%. RIGHT VENTRICLE Normal right ventricular size and systolic function. LEFT ATRIUM The left atrial size is moderately dilated. RIGHT ATRIUM The right atrial size is normal. ATRIAL SEPTUM Normal atrial septal thickness without atrial level shunting by limited color doppler interrogation. AORTA The aortic root and proximal ascending aorta are normal in size on limited imaging. MITRAL VALVE Mild mitral valve regurgitation. Mild mitral annular calcification. AORTIC VALVE Trileaflet aortic valve. No aortic valve stenosis or regurgitation. TRICUSPID VALVE There is mild tricuspid valve regurgitation. The estimated pulmonary arterial pressure is 40.7 mmHg. PULMONARY VALVE The pulmonary valve is not well visualized. VESSELS The inferior vena cava is normal in size. PERICARDIUM No pericardial effusion. Suman Burgos MD, FACC Edited by: [employer] CV Calculator Operator (Electronically Signed) Final Date:06 June 2017 19:01 Amended: 08 June 2017 09:17
== END 2017-06-06 15:33 | disposition home or self-care (01) ==
LOC: NEPC 22:53 → NEDA 06-04 01:04 → NEPFCDU 06-04 02:14
PROVIDERS: ADMIT Internal Medicine; ATTEND Internal Medicine
DX: I13.0 Hypertensive heart and chronic kidney disease with heart failure and stage 1 through stage 4 chronic kidney disease, or unspecified chronic kidney disease (principal); I50.9 Heart failure, unspecified; D50.9 Iron deficiency anemia, unspecified; J44.9 Chronic obstructive pulmonary disease, unspecified; R53.1 Weakness; M19.90 Unspecified osteoarthritis, unspecified site; E78.00 Pure hypercholesterolemia, unspecified; R25.2 Cramp and spasm; N17.9 Acute kidney failure, unspecified; K21.0 Gastro-esophageal reflux disease with esophagitis; Z79.899 Other long term (current) drug therapy; R42 Dizziness and giddiness; M79.602 Pain in left arm; K44.9 Diaphragmatic hernia without obstruction or gangrene; K29.80 Duodenitis without bleeding; K29.50 Unspecified chronic gastritis without bleeding; K57.30 Diverticulosis of large intestine without perforation or abscess without bleeding; N18.2 Chronic kidney disease, stage 2 (mild); M79.604 Pain in right leg; M79.605 Pain in left leg; K59.00 Constipation, unspecified; R06.02 Shortness of breath; I44.0 Atrioventricular block, first degree
CPT/HCPCS: 36430; 51702; 71010; 80048; 80053; 81001; 82607; 82728; 82746; 83540; 83550; 83735; 83880; 84100; 84443; 84484; 85025; 85610; 85730; 86850; 86900; 86901; 86920; 87040; 93005; 93308; 93970; 96361; 96374; 96376; 97162; 97530; 99285; G0378; G8987; G8988; J1644; J1940; J2250; J2270; J7050; P9016

== ENCOUNTER 2017-06-22 20:48 | Inpatient (IN) | payer OTHER, MEDICARE ==
[~2017-06-22] VITALS: Ht 160 cm; Wt 83.5 kg
[~2017-06-22 20:48] MED LIST changes: -EQUALIQ7 PO; +FERR325T20 PO; +FURO20TA PO; +PANT40TA3 PO; -PRAV40TA2 PO; +PRAV80TA2 PO; -PROT40TA PO; -TRAM50 PO; -TRAZ50TA4 PO; +VITA500T2 PO
[2017-06-22 21:00] VITALS: BP 152/67; PULSE 83; RESP 18; TEMP 98.1; O2SAT 99
[2017-06-22] MEDS ORDERED: SODIUM CHLORIDE 0.9% FLUSH 5 ML FLUSH IV FLUSH PRN (21:00)
--- NOTE | 2017-06-22 21:09 | PD ---
HPI Chief Complaint: Pain: Acute or Chronic Time Seen by Provider: 20:52 Travel History International Travel<30 days: No Contact w/Intl Traveler<30days: No Traveled to known affect area: No History of Present Illness HPI 86-year-old female brought in by EMS with sudden onset left hip pain. Patient was ambulatory and sitting in her recliner when suddenly she developed severe left hip pain. Patient has no history of trauma to the area or fall. Reportedly the patient does this sometimes when she is anemic according to the son. She has no recent illness. She denies chest pain, shortness of breath, abdominal pain, nausea, vomiting, urinary symptoms. Patient is a poor historian and seems unreliable. She has no known drug allergies. Further history obtained from the son, states that the patient has had increased weakness and fatigue over the past week. Concerned about possible worsening anemia which she was recently hospitalized for. PFSH Past Medical History Arthritis: Yes Asthma: No Blood Disorders: No Heart Rhythm Problems: No Cancer: No Cardiovascular Problems: Yes High Cholesterol: Yes Chest Pain: No Congestive Heart Failure: Yes Diminished Hearing: No Endocrine: No Gastrointestinal Disorders: No Genitourinary: No Hypertension: Yes Immune Disorder: No Musculoskeletal: Yes Neurologic: No Psychiatric: No Reproductive: No Respiratory: No Immunizations Current: Yes Sleep Apnea: No Ulcer: Yes Influenza Vaccination: No Menopausal: Yes : 3 Para: 3 Past Surgical History Abdominal Surgery: Yes Cardiac Surgery: No Ear Surgery: No Endocrine Surgery: No Eye Surgery: No Genitourinary Surgery: No Gynecologic Surgery: Yes Hysterectomy: Yes Oral Surgery: No Pacemaker: No Thoracic Surgery: No Other Surgery: Yes Social History Alcohol Use: No Tobacco Use: No Substance Use: No Allergies-Medications (Allergen,Severity, Reaction): Coded Allergies: No Known Allergies (Verified Adverse Reaction, Unknown, 06/22/17) Reported Meds & Prescriptions Reported Meds & Active Scripts Active C 500/Parvin Hips (Ascorbic Acid) 500 Mg Tab 500 Mg PO BID 30 Days Furosemide 20 Mg Tab 20 Mg PO DAILY 30 Days Ferosul (Ferrous Sulfate) 325 Mg (65 Mg Iron) Tablet 325 Mg PO BID 30 Days Pantoprazole (Pantoprazole Sodium) 40 Mg Tab 40 Mg PO DAILY 30 Days Reported Pravastatin 80 Mg Tab 100 Mg PO HS Review of Systems ROS Limitations: Altered Mental Status, Poor Historian Except as stated in HPI: all other systems reviewed are Neg General / Constitutional: No: Fever Eyes: No: Visual changes HENT: No: Headaches Cardiovascular: No: Chest Pain or Discomfort Respiratory: No: Shortness of Breath Gastrointestinal: No: Abdominal Pain Genitourinary: No: Dysuria Musculoskeletal: No: Pain Skin: No Rash Neurologic: No: Weakness Psychiatric: No: Depression Endocrine: No: Polydipsia Hematologic/Lymphatic: No: Easy Bruising Physical Exam Exam Limitations: Poor Historian Narrative GENERAL: Patient appears in mild to moderate distress. She is answering questions appropriately. SKIN: Warm and dry. Normal color. Somewhat decreased turgor. No obvious signs of trauma. HEAD: Atraumatic. Normocephalic. EYES: Pupils equal and round. No scleral icterus. No injection or drainage. ENT: No nasal bleeding or discharge. Mucous membranes pink and moist. Pharynx is clear. Airway is patent. NECK: Trachea midline. Supple and nontender. CARDIOVASCULAR: Regular rate and rhythm. RESPIRATORY: No accessory muscle use. Clear to auscultation. Breath sounds equal bilaterally. GASTROINTESTINAL: Abdomen soft, non-tender, nondistended. Hepatic and splenic margins not palpable. MUSCULOSKELETAL: Extremities without clubbing, cyanosis, or edema. Patient complains of pain with motion of the lower extremities in the hips bilaterally. There is no crepitus or deformity noted. There is no shortening of either lower leg. NEUROLOGICAL: Awake and alert. No obvious cranial nerve deficits. Motor grossly within normal limits. Five out of 5 muscle strength in the arms and legs. Normal speech. PSYCHIATRIC: Appropriate mood and affect; insight and judgment normal. Data Data Last Documented VS Vital Signs Date Time Temp Pulse Resp B/P (MAP) Pulse Ox O2 Delivery O2 Flow Rate FiO2 06/22/17 21:24 99 Nasal Cannula 2.00 06/22/17 21:00 98.1 83 18 152/67 (95) Orders Orders Electrocardiogram (06/22/17 20:59) Ammonia (06/22/17 20:59) Complete Blood Count With Diff (06/22/17 20:59) Comprehensive Metabolic Panel (06/22/17 20:59) Creatine Kinase (Cpk) (06/22/17 20:59) Prothrombin Time / Inr (Pt) (06/22/17 20:59) Act Partial Throm Time (Ptt) (06/22/17 20:59) Troponin I (06/22/17 20:59) Urinalysis - C+S If Indicated (06/22/17 20:59) Chest, Single Ap (06/22/17 20:59) Blood Glucose (06/22/17 20:59) Ecg Monitoring (06/22/17 20:59) Iv Access Insert/Monitor (06/22/17 20:59) Cath For Specimen (06/22/17 20:59) Oximetry (06/22/17 20:59) Sodium Chloride 0.9% Flush (Ns Flush) (06/22/17 21:00) Lactic Acid (06/22/17 20:59) Hip, Uni(Ap&Lat) W Ap Pelvis (06/22/17 20:59) B-Type Natriuretic Peptide (06/22/17 21:09) Type And Screen (06/22/17 22:07) Red Blood Cells (Rbc) (06/22/17 22:07) Labs Laboratory Tests Test 06/22/17 21:15 White Blood Count 9.0 TH/MM3 Red Blood Count 2.89 MIL/MM3 Hemoglobin 7.7 GM/DL Hematocrit 24.0 % Mean Corpuscular Volume 83.2 FL Mean Corpuscular Hemoglobin 26.8 PG Mean Corpuscular Hemoglobin Concent 32.2 % Red Cell Distribution Width 27.2 % Platelet Count 411 TH/MM3 Mean Platelet Volume 7.6 FL Neutrophils (%) (Auto) 76.3 % Lymphocytes (%) (Auto) 11.1 % Monocytes (%) (Auto) 6.0 % Eosinophils (%) (Auto) 6.4 % Basophils (%) (Auto) 0.2 % Neutrophils # (Auto) 6.9 TH/MM3 Lymphocytes # (Auto) 1.0 TH/MM3 Monocytes # (Auto) 0.5 TH/MM3 Eosinophils # (Auto) 0.6 TH/MM3 Basophils # (Auto) 0.0 TH/MM3 CBC Comment AUTO DIFF Differential Comment AUTO DIFF CONFIRMED Platelet Estimate NORMAL Platelet Morphology Comment NORMAL Ovalocytes 1+ Keratocytes OCC Prothrombin Time 10.8 SEC Prothromb Time International Ratio 1.0 RATIO Activated Partial Thromboplast Time 19.5 SEC Blood Urea Nitrogen 16 MG/DL Creatinine 1.03 MG/DL Random Glucose 171 MG/DL Total Protein 5.9 GM/DL Albumin 2.8 GM/DL Calcium Level 7.9 MG/DL Alkaline Phosphatase 57 U/L Aspartate Amino Transf (AST/SGOT) 17 U/L Alanine Aminotransferase (ALT/SGPT) 22 U/L Total Bilirubin 0.3 MG/DL Sodium Level 139 MEQ/L Potassium Level 3.1 MEQ/L Chloride Level 103 MEQ/L Carbon Dioxide Level 25.6 MEQ/L Anion Gap 10 MEQ/L Estimat Glomerular Filtration Rate 51 ML/MIN Lactic Acid Level 2.2 mmol/L Ammonia 49 MCMOL/L Total Creatine Kinase 52 U/L Troponin I 0.02 NG/ML [facility] Medical Decision Making Medical Screen Exam Complete: Yes Emergency Medical Condition: Yes Medical Record Reviewed: Yes Differential Diagnosis Altered mental status. Left hip pain. Possible fracture. Renal insufficiency. CHF. Altered mental status. Narrative Course Patient appears medically stable at time of exam. Labs ordered including CBC, CMP, lactic acid, urinalysis, and ammonia level, and proBNP. Chest x-ray is ordered as well as EKG. X-ray of the left hip and pelvis is ordered. Chest x-ray bilateral patchy infiltrate per radiologist. EKG shows sinus rhythm with nonspecific ST changes. X-ray of the left hip shows no acute fracture dislocation. CBC shows hemoglobin of 7.7, hematocrit of 24.0 without leukocytosis PT/INR are normal. Chemistry significant for potassium 3.1, creatinine is 1.03, GFR is 51, random glucose is 171, calcium 7.9, ammonia level is elevated at 49, protein is 5.9 and albumin is 2.8. Lactic acid is elevated at 2.2 Type and screen of 2 units of red blood cells are ordered. Patient is given 500 mg Levaquin IV. Patient is discussed with Dr. Ortez, who is awaiting proBNP at end of my shift. Final disposition will be determined by him. Diagnosis Primary Impression: Iron deficiency anemia Qualified Codes: D50.9 - Iron deficiency anemia, unspecified Additional Impression: Bilateral pulmonary infiltrates on chest x-ray Condition: Stable Jerrell Lee Jun 22, 2017 21:09
[2017-06-22 21:24] VITALS: O2SAT 99
[2017-06-22 21:34] LABS: AUTOMATED NEUTROPHIL # 6.9 TH/MM3 (1.8-7.7); BASOPHIL % 0.2 % (0.0-2.0); EOSINOPHIL # 0.6 TH/MM3 (0-0.4); EOSINOPHIL % 6.4 % (0.0-4.0); LYMPH % 11.1 % (9.0-44.0); MEAN CELL VOLUME 83.2 FL (80.0-100.0); MEAN CORPUSCULAR HEMOGLOBIN 26.8 PG (27.0-34.0); MEAN CORPUSCULAR HGB CONC 32.2 % (32.0-36.0); NEUT % 76.3 % (16.0-70.0); PLATELET COUNT 411 TH/MM3 (150-450); RED BLOOD COUNT 2.89 MIL/MM3 (4.00-5.30); RED CELL DISTRIBUTION WIDTH 27.2 % (11.6-17.2)
[2017-06-22 21:49] LABS: HEMO FLAGS AUTO DIFF
[2017-06-22 21:50] LABS: ANION GAP 10 MEQ/L (5-15); AST (GOT) 17 U/L (15-37); BICARBONATE 25.6 MEQ/L (21.0-32.0); BLOOD UREA NITROGEN 16 MG/DL (7-18); CHLORIDE 103 MEQ/L (98-107); GLOMERULAR FILTRATION RATE 51 ML/MIN (>89); POTASSIUM 3.1 MEQ/L (3.5-5.1); SODIUM (NA) 139 MEQ/L (136-145)
[2017-06-22 21:51] LABS: ALT (GPT) 22 U/L (10-53)
[2017-06-22 21:52] LABS: APTT (PATIENT) 19.5 SEC (24.3-30.1); PROTHROMBIN TIME - PATIENT 10.8 SEC (9.8-11.6)
[2017-06-22 21:55] LABS: ALKALINE PHOSPHATASE 57 U/L (45-117); CREATINE KINASE 52 U/L (26-192); TOTAL BILIRUBIN ADULT 0.3 MG/DL (0.2-1.0)
--- NOTE | 2017-06-22 22:12 | RADRPT ---
EXAM DATE/TIME: 06/22/2017 21:46 [facility] COMPARISON: CHEST SINGLE AP, June 05, 2017, 11:44. INDICATIONS : Shortness of breath. MEDICAL HISTORY : Hypercholesterolemia. Hypertension. Congestive heart failure. COPD. SURGICAL HISTORY : None. ENCOUNTER: Initial ACUITY: 1 day PAIN SCORE: 0/10 LOCATION: Bilateral chest FINDINGS: Interval development of areas of patchy areas of interstitial infiltrate throughout both lungs sparin g left apex. Both hemidiaphragms remain fairly well delineated. The heart is normal in size. Degen erative changes in the left shoulder. CONCLUSION: Patchy interstitial infiltrates in both lungs. Kody Fajardo MD on June 22, 2017 at 22:10 Board Certified Radiologist. This report was verified electronically.
--- NOTE | 2017-06-22 22:23 | RADRPT ---
EXAM DATE/TIME: 06/22/2017 21:41 [facility] COMPARISON: No previous studies available for comparison. INDICATIONS : Pain without fall. MEDICAL HISTORY : None. SURGICAL HISTORY : None. ENCOUNTER: Initial ACUITY: 1 day PAIN SCORE: 9/10 LOCATION: Left hip. FINDINGS: Examination of the left hip was performed with AP Pelvis. The primary and secondary trabecular patte rn of the femoral neck is intact. The hip joint is of normal width without significant sclerosis or bony hypertrophy. The acetabulum is grossly intact. The bony structures are osteopenic. Multiple c alcified phleboliths in the pelvis and vascular calcification in the proximal thighs. CONCLUSION: No fracture seen. Osteopenia. Kody Fajardo MD on June 22, 2017 at 22:20 Board Certified Radiologist. This report was verified electronically.
[2017-06-22 22:37] LABS: SCAN/DIFF AUTO DIFF CONFIRMED
[2017-06-22 22:38] LABS: KERATOCYTES OCC (NORMAL); OVALOCYTES 1+ (NORMAL); PLATELET ESTIMATE SMEAR NORMAL (NORMAL); PLATELET MORPHOLOGY NORMAL (NORMAL)
[2017-06-22] MEDS ORDERED: LEVOFLOXACIN 500 MG PREMIX INJ 100 ML IV ONE (22:45)
[2017-06-22 23:01] VITALS: BP 151/67; PULSE 84; RESP 18; O2SAT 97
[2017-06-22 23:03] LABS: BLOOD, URINE NEG (NEG); COMMENT (UR) CATH-CULT NOT IND; CULTURE IF INDICATED CATH CULTURE NOT IND; GLUCOSE,URINE NEG (NEG); KETONE, URINE NEG (NEG); MUCUS URINE FEW /lpf (OCC); NITRITE,URINE NEG (NEG); PH, URINE 7.5 (5.0-8.5); URINE COLOR LIGHT-YELLOW (YELLW/STRAW)
--- NOTE | 2017-06-22 23:25 | PD ---
Data Data Last Documented VS Vital Signs Date Time Temp Pulse Resp B/P (MAP) Pulse Ox O2 Delivery O2 Flow Rate FiO2 06/22/17 23:01 84 18 151/67 (95) 97 Nasal Cannula 2.00 06/22/17 21:00 98.1 Orders Orders Electrocardiogram (06/22/17 20:59) Ammonia (06/22/17 20:59) Complete Blood Count With Diff (06/22/17 20:59) Comprehensive Metabolic Panel (06/22/17 20:59) Creatine Kinase (Cpk) (06/22/17 20:59) Prothrombin Time / Inr (Pt) (06/22/17 20:59) Act Partial Throm Time (Ptt) (06/22/17 20:59) Troponin I (06/22/17 20:59) Urinalysis - C+S If Indicated (06/22/17 20:59) Chest, Single Ap (06/22/17 20:59) Blood Glucose (06/22/17 20:59) Ecg Monitoring (06/22/17 20:59) Iv Access Insert/Monitor (06/22/17 20:59) Cath For Specimen (06/22/17 20:59) Oximetry (06/22/17 20:59) Sodium Chloride 0.9% Flush (Ns Flush) (06/22/17 21:00) Lactic Acid (06/22/17 20:59) Hip, Uni(Ap&Lat) W Ap Pelvis (06/22/17 20:59) B-Type Natriuretic Peptide (06/22/17 21:09) Type And Screen (06/22/17 22:07) Red Blood Cells (Rbc) (06/22/17 22:07) Levofloxacin 500 Mg Premix Inj (Levaquin (06/22/17 22:45) Admit Order (Ed Use Only) (06/22/17 ) Labs Laboratory Tests Test 06/22/17 21:15 06/22/17 22:05 White Blood Count 9.0 TH/MM3 Red Blood Count 2.89 MIL/MM3 Hemoglobin 7.7 GM/DL Hematocrit 24.0 % Mean Corpuscular Volume 83.2 FL Mean Corpuscular Hemoglobin 26.8 PG Mean Corpuscular Hemoglobin Concent 32.2 % Red Cell Distribution Width 27.2 % Platelet Count 411 TH/MM3 Mean Platelet Volume 7.6 FL Neutrophils (%) (Auto) 76.3 % Lymphocytes (%) (Auto) 11.1 % Monocytes (%) (Auto) 6.0 % Eosinophils (%) (Auto) 6.4 % Basophils (%) (Auto) 0.2 % Neutrophils # (Auto) 6.9 TH/MM3 Lymphocytes # (Auto) 1.0 TH/MM3 Monocytes # (Auto) 0.5 TH/MM3 Eosinophils # (Auto) 0.6 TH/MM3 Basophils # (Auto) 0.0 TH/MM3 CBC Comment AUTO DIFF Differential Comment AUTO DIFF CONFIRMED Platelet Estimate NORMAL Platelet Morphology Comment NORMAL Ovalocytes 1+ Keratocytes OCC Prothrombin Time 10.8 SEC Prothromb Time International Ratio 1.0 RATIO Activated Partial Thromboplast Time 19.5 SEC Blood Urea Nitrogen 16 MG/DL Creatinine 1.03 MG/DL Random Glucose 171 MG/DL Total Protein 5.9 GM/DL Albumin 2.8 GM/DL Calcium Level 7.9 MG/DL Alkaline Phosphatase 57 U/L Aspartate Amino Transf (AST/SGOT) 17 U/L Alanine Aminotransferase (ALT/SGPT) 22 U/L Total Bilirubin 0.3 MG/DL Sodium Level 139 MEQ/L Potassium Level 3.1 MEQ/L Chloride Level 103 MEQ/L Carbon Dioxide Level 25.6 MEQ/L Anion Gap 10 MEQ/L Estimat Glomerular Filtration Rate 51 ML/MIN Lactic Acid Level 2.2 mmol/L Ammonia 49 MCMOL/L Total Creatine Kinase 52 U/L Troponin I 0.02 NG/ML B-Type Natriuretic Peptide 110 PG/ML Urine Color LIGHT-YELLOW Urine Turbidity HAZY Urine pH 7.5 Urine Specific [place] 1.007 Urine Protein NEG mg/dL Urine Glucose (UA) NEG mg/dL Urine Ketones NEG mg/dL Urine Occult Blood NEG Urine Nitrite NEG Urine Bilirubin NEG Urine Urobilinogen LESS THAN 2.0 MG/DL Urine Leukocyte Esterase NEG Urine RBC LESS THAN 1 /hpf Urine WBC 1 /hpf Urine Amorphous Sediment OCC Urine Mucus FEW /lpf Microscopic Urinalysis Comment CATH-CULT NOT IND MDM Supervised Visit with JEANNETTE: Yes Narrative Course I, Dr. Ortez, have reviewed the advance practice practitioner's documentation and am in agreement, met with the patient face to face, made the diagnosis, and the medical decision making was done by me. 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 She is anemic and will be given packed red blood cells. She will be admitted to hospitals discussed with Dr. Segovia. I unfortunately do not have discussed ongoing care with the family. Diagnosis Primary Impression: Iron deficiency anemia Qualified Codes: D50.9 - Iron deficiency anemia, unspecified Additional Impression: Bilateral pulmonary infiltrates on chest x-ray Condition: Stable Roberto Carlos Ortez MD Jun 22, 2017 23:25
[2017-06-23] VITALS (13 sets, daily range): BP systolic 112–158; BP diastolic 55–73; PULSE 74–98; RESP 17–19; TEMP 97–98.3; O2SAT 94–100
[2017-06-23] MEDS ORDERED: ACETAMINOPHEN/HYDROcodone 325 MG/5 MG TAB PO PRN (00:15)
[2017-06-23] MEDS ORDERED: LORazepam 1 MG TAB PO ONE (00:15)
[2017-06-23] MEDS ORDERED: SODIUM CHLORIDE 0.9% FLUSH 10 ML FLUSH IV FLUSH PRN (00:15)
[2017-06-23] MEDS ORDERED: POTASSIUM CHLORIDE 20 MEQ CONTROLLED RELEASE TAB PO ONE (00:15)
[2017-06-23] MEDS ORDERED: BISACODYL 10 MG SUPP RECTAL PRN (00:15)
[2017-06-23] MEDS ORDERED: SENNOSIDES 8.6 MG TAB PO PRN (00:15)
[2017-06-23] MEDS ORDERED: FUROSEMIDE 20 MG/2 ML VIAL IV PUSH ONE (00:15)
[2017-06-23] MEDS ORDERED: ACETAMINOPHEN 325 MG TAB PO PRN (00:15)
[2017-06-23] MEDS ORDERED: ONDANSETRON HCL 4 MG/2 ML VIAL IVP PRN (00:15)
[2017-06-23] MEDS ORDERED: LACTULOSE SYRUP 20 GM/30 ML CUP PO PRN (00:15)
[2017-06-23] MEDS ORDERED: MAGNESIUM HYDROXIDE SUSP 30 ML CUP PO PRN (00:15)
[2017-06-23] MEDS ORDERED: MORPHINE SULFATE 4 MG/ML INJ IV PUSH PRN (00:15)
--- NOTE | 2017-06-23 01:10 | HHI.HP ---
HPI Service [facility] Primary Care Physician Unknown Admission Diagnosis FTT, possible pna, Anemia. Diagnoses: (1) Anemia Diagnosis: Principal (2) Lactic acidosis Diagnosis: Principal (3) Hypokalemia Diagnosis: Principal (4) CHF (congestive heart failure) Diagnosis: Principal Travel History International Travel<30 Days: No Contact w/Intl Traveler <30 Da: No Traveled to Known Affected Are: No History of Present Illness This is an 86-year-old female with a PMH of HTN, CHF (Echo 06/06/17 w/ EF 60%), Hyperlipidemia and Anemia who was brought to the ER secondary to complaints of acute left hip pain. History difficult to obtain from patient, however she states she was sitting in recliner when had sudden onset of left hip pain. No injury or trauma. Son reports pt w/ increased weakness, concern for Anemia. Recent admit 06/04-06/06/17 for AMS/CHF, found to have Critical Anemia w/ Hgb 7.5 requiring transfusion, s/p eval by GI w/ EGD w/ no abnormal findings. On arrival, BP 150/67, HR 83, O2 sat 99% on RA, Afebrile. Hemoglobin 7.7, previously 10.3 on 06/05/17. Creatinine 1.03, producing 1.40 on 06/06/17. Lactic Acid 2.2. INR 1.0. UA negative. CXR patchy interstitial infiltrates bilaterally. Hip X-ray with no fracture seen. 2u pRBC ordered in ER, pending transfusion. Review of Systems Except as stated in HPI: all other systems reviewed are Neg ROS: 14 point review of systems otherwise negative. Past Family Social History Past Medical History PMH: HTN, CHF (Echo 06/06/17 w/ EF 60%), Hyperlipidemia and Anemia Past Surgical History PAST SURGICAL HISTORY: Hysterectomy Allergies: Coded Allergies: No Known Allergies (Verified Allergy, Unknown, 06/23/17) Family History PAST FAMILY HISTORY: Reviewed. No h/o DM or CAD Social History PAST SOCIAL HISTORY: Negative for alcohol, tobacco or drugs. Physical Exam Vital Signs Vital Signs Date Time Temp Pulse Resp B/P (MAP) Pulse Ox O2 Delivery O2 Flow Rate FiO2 06/23/17 00:40 06/22/17 23:01 84 18 151/67 (95) 97 Nasal Cannula 2.00 06/22/17 21:24 99 Nasal Cannula 2.00 06/22/17 21:00 98.1 83 18 152/67 (95) 99 Physical Exam PE: GENERAL: Elderly white female in no acute distress. HEENT: PERRLA, EOMI. No scleral icterus or conjunctival pallor. No lid lag or facial droop. CARDIOVASCULAR: Regular rate and rhythm. No obvious murmurs to auscultation. No chest tenderness to palpation. RESPIRATORY: No obvious rhonchi or wheezing. Clear to auscultation. Breath sounds equal bilaterally. GASTROINTESTINAL: Abdomen soft, non-tender, nondistended. BS normal. MUSCULOSKELETAL: Extremities without clubbing, cyanosis, or edema. No obvious deformities. NEUROLOGICAL: Awake, alert and oriented x4. No focal neurologic deficits. Moving both upper and lower extremities spontaneously. Laboratory Laboratory Tests Test 06/22/17 21:15 06/22/17 22:05 White Blood Count 9.0 Red Blood Count 2.89 Hemoglobin 7.7 Hematocrit 24.0 Mean Corpuscular Volume 83.2 Mean Corpuscular Hemoglobin 26.8 Mean Corpuscular Hemoglobin Concent 32.2 Red Cell Distribution Width 27.2 Platelet Count 411 Mean Platelet Volume 7.6 Neutrophils (%) (Auto) 76.3 Lymphocytes (%) (Auto) 11.1 Monocytes (%) (Auto) 6.0 Eosinophils (%) (Auto) 6.4 Basophils (%) (Auto) 0.2 Neutrophils # (Auto) 6.9 Lymphocytes # (Auto) 1.0 Monocytes # (Auto) 0.5 Eosinophils # (Auto) 0.6 Basophils # (Auto) 0.0 CBC Comment AUTO DIFF Differential Comment AUTO DIFF CONFIRMED Platelet Estimate NORMAL Platelet Morphology Comment NORMAL Ovalocytes 1+ Keratocytes OCC Prothrombin Time 10.8 Prothromb Time International Ratio 1.0 Activated Partial Thromboplast Time 19.5 Blood Urea Nitrogen 16 Creatinine 1.03 Random Glucose 171 Total Protein 5.9 Albumin 2.8 Calcium Level 7.9 Alkaline Phosphatase 57 Aspartate Amino Transf (AST/SGOT) 17 Alanine Aminotransferase (ALT/SGPT) 22 Total Bilirubin 0.3 Sodium Level 139 Potassium Level 3.1 Chloride Level 103 Carbon Dioxide Level 25.6 Anion Gap 10 Estimat Glomerular Filtration Rate 51 Lactic Acid Level 2.2 Ammonia 49 Total Creatine Kinase 52 Troponin I 0.02 B-Type Natriuretic Peptide 110 Urine Color LIGHT-YELLOW Urine Turbidity HAZY Urine pH 7.5 Urine Specific [place] 1.007 Urine Protein NEG Urine Glucose (UA) NEG Urine Ketones NEG Urine Occult Blood NEG Urine Nitrite NEG Urine Bilirubin NEG Urine Urobilinogen LESS THAN 2.0 Urine Leukocyte Esterase NEG Urine RBC LESS THAN 1 Urine WBC 1 Urine Amorphous Sediment OCC Urine Mucus FEW Microscopic Urinalysis Comment CATH-CULT NOT IND Result Diagram: 06/22/17211406/22/172114 Caprini VTE Risk Assessment Caprini VTE Risk Assessment: No/Low Risk (score <= 1) VTE Pharm Contraindication: Active bleeding Caprini Risk Assessment Model Point Value = 1 Point Value = 2 Point Value = 3 Point Value = 5 Age 41-60 Minor surgery BMI > 25 kg/m2 Swollen legs Varicose veins or History of unexplained or recurrent spontaneous Oral contraceptives or hormone replacement Sepsis (< 1 month) Serious lung disease, including pneumonia (< 1 month) Abnormal pulmonary function Acute myocardial infarction Congestive heart failure (< 1 month) History of inflammatory bowel disease Medical patient at bed rest Age 61-74 Arthroscopic surgery Major open surgery (> 45 min) Laparoscopic surgery (> 45 min) Malignancy Confined to bed (> 72 hours) Immobilizing plaster cast Central venous access Age >= 75 History of VTE Family history of VTE Factor V Leiden Prothrombin [id number] Lupus anticoagulant Anticardiolipin antibodies Elevated serum homocysteine Heparin-induced thrombocytopenia Other congenital or acquired thrombophilia Stroke (< 1 month) Elective arthroplasty Hip, pelvis, or leg fracture Acute spinal cord injury (< 1 month) Prophylaxis Regimen Total Risk Factor Score Risk Level Prophylaxis Regimen 0-1 Low Early ambulation 2 Moderate Order ONE of the following: *Sequential Compression Device (SCD) *Heparin 5000 units SQ BID 3-4 Higher Order ONE of the following medications: *Heparin 5000 units SQ TID *Enoxaparin/Lovenox 40 mg SQ daily (WT < 150 kg, CrCl > 30 mL/min) *Enoxaparin/Lovenox 30 mg SQ daily (WT < 150 kg, CrCl > 10-29 mL/min) *Enoxaparin/Lovenox 30 mg SQ BID (WT < 150 kg, CrCl > 30 mL/min) AND/OR *Sequential Compression Device (SCD) 5 or more Highest Order ONE of the following medications: *Heparin 5000 units SQ TID (Preferred with Epidurals) *Enoxaparin/Lovenox 40 mg SQ daily (WT < 150 kg, CrCl > 30 mL/min) *Enoxaparin/Lovenox 30 mg SQ daily (WT < 150 kg, CrCl > 10-29 mL/min) *Enoxaparin/Lovenox 30 mg SQ BID (WT < 150 kg, CrCl > 30 mL/min) AND *Sequential Compression Device (SCD) Assessment and Plan Problem List: (1) Anemia ICD Code: D64.9 - Anemia, unspecified (2) Lactic acidosis ICD Code: E87.2 - Acidosis (3) Hypokalemia ICD Code: E87.6 - Hypokalemia (4) CHF (congestive heart failure) ICD Code: I50.9 - Heart failure, unspecified Assessment and Plan A/P: 1. Anemia: Recurrent. Hgb 7.7, previously 10.3 on 06/05/17. Recent admit 06/04 -06/06/17 for same, Hgb 7.5 requiring transfusion, s/p EGD 06/04/17 w/ hiatal hernia, normal stomach, normal duodenal mucosa. 2u pRBC ordered in ER, pending transfusion. Monitor Hgb/Hct. GI Consult for re-eval as needed. 2. Lactic Acidosis: Lactic Acid 2.2, no evidence of sepsis, likely secondary to volume depletion from anemia. Transfuse as above, repeat Lactic Acid. 3. CHF: Acute on Chronic. Diastolic. Echo 06/06/17 w/ EF 60%. BNP 110. CXR w/ patchy infiltrates, images reviewed by me, appear to be related more to congestion. S/p Levaquin in ER. Continue w/ diuresis, monitor I/O. 4. Hypokalemia: K+ 3.1. Will replace and recheck as needed. 5. DVT Prophylaxis: SCD/Teds. Pharmacologic contraindication in light of critical anemia. 6. Social work for dc planning as needed. 7. Case discussed w/ ER physician at length. Physician Certification 2 Midnight Certification Type: Admission for Inpatient Services Order for Inpatient Services The services are ordered in accordance with Medicare regulations or non- Medicare payer requirements, as applicable. In the case of services not specified as inpatient-only, they are appropriately provided as inpatient services in accordance with the 2-midnight benchmark. Estimated LOS (days): 2 days is the estimated time the patient will need to remain in the hospital, assuming treatment plan goals are met and no additional complications. Post-Hospital Plan: Not yet determined Winifred Schroeder MD Jun 23, 2017 01:10
[2017-06-23] MEDS ORDERED: PANTOPRAZOLE SOD 40 MG DELAYED RELEASE TAB PO SCH (09:00)
[2017-06-23] MEDS ORDERED: DOCUSATE SODIUM 50 MG/SENNA 8.6 MG TAB PO SCH (09:00)
[2017-06-23] MEDS ORDERED: ASCORBIC ACID 500 MG TAB PO SCH (09:00)
[2017-06-23] MEDS ORDERED: FUROSEMIDE 20 MG TAB PO SCH (09:00)
[2017-06-23] MEDS ORDERED: FERROUS SULFATE 325 MG (65 MG ELEMENTAL IRON) TAB PO SCH (09:00)
[2017-06-23] MEDS ORDERED: SODIUM CHLORIDE 0.9% FLUSH 10 ML FLUSH IV FLUSH SCH (09:00)
[2017-06-23 10:20] LABS: AUTOMATED NEUTROPHIL # 7.2 TH/MM3 (1.8-7.7); BASOPHIL # 0.1 TH/MM3 (0-0.2); BASOPHIL % 0.6 % (0.0-2.0); EOSINOPHIL # 0.6 TH/MM3 (0-0.4); EOSINOPHIL % 6.3 % (0.0-4.0); HEMATOCRIT 31.5 % (35.0-46.0); HEMO FLAGS DIFF FINAL; LYMPH % 10.2 % (9.0-44.0); MEAN CELL VOLUME 83.7 FL (80.0-100.0); MEAN CORPUSCULAR HEMOGLOBIN 27.9 PG (27.0-34.0); MEAN CORPUSCULAR HGB CONC 33.3 % (32.0-36.0); MONO % 8.8 % (0.0-8.0); NEUT % 74.1 % (16.0-70.0); PLATELET COUNT 407 TH/MM3 (150-450); RED BLOOD COUNT 3.77 MIL/MM3 (4.00-5.30); RED CELL DISTRIBUTION WIDTH 23.4 % (11.6-17.2); WHITE BLOOD COUNT 9.7 TH/MM3 (4.0-11.0)
[2017-06-23 10:28] LABS: ALT (GPT) 23 U/L (10-53); ANION GAP 8 MEQ/L (5-15); AST (GOT) 17 U/L (15-37); BICARBONATE 30.3 MEQ/L (21.0-32.0); BLOOD UREA NITROGEN 12 MG/DL (7-18); CHLORIDE 103 MEQ/L (98-107); GLOMERULAR FILTRATION RATE 63 ML/MIN (>89); MAGNESIUM 1.4 MG/DL (1.5-2.5); POTASSIUM 3.8 MEQ/L (3.5-5.1); SODIUM (NA) 141 MEQ/L (136-145)
[2017-06-23 10:30] LABS: ALKALINE PHOSPHATASE 58 U/L (45-117); TOTAL BILIRUBIN ADULT 1.2 MG/DL (0.2-1.0)
--- NOTE | 2017-06-23 14:35 | HHI.PR ---
Subjective Remarks This is an 86-year-old female with Hypertension, Heart Failure with preserved Systolic failure on Echocardiogram 06/06/17 with EF 60%, Hyperlipidemia and Anemia who was brought to the ER secondary to complaints of acute left hip pain No injury or trauma. Son reports pt w/ increased weakness, concern for Anemia. Recent admit 06/04-06/06/17 for AMS/CHF, found to have Critical Anemia w/ Hgb 7.5 requiring transfusion, s/p eval by GI w/ EGD w/ no abnormal findings. On arrival, BP 150/67, HR 83, O2 sat 99% on RA, Afebrile. Hemoglobin 7.7, previously 10.3 on 06/05/17. Creatinine 1.03, producing 1.40 on 06/06/17. Lactic Acid 2.2. INR 1.0. UA negative. CXR patchy interstitial infiltrates bilaterally. Hip X-ray with no fracture seen. 2u pRBC ordered in ER, pending transfusion. Discussed in the room with her Son and Daughter they want the patient as DNR and she has follow up with PCP next Sunday asked for Physical Therapy evaluation, for discharge. Objective Vital Signs Date Time Temp Pulse Resp B/P (MAP) Pulse Ox O2 Delivery O2 Flow Rate FiO2 06/23/17 12:00 98.3 83 18 112/55 (74) 97 06/23/17 08:00 97.5 86 18 145/68 (93) 94 06/23/17 06:45 97.4 74 18 152/70 99 06/23/17 05:13 97.7 94 18 133/62 99 06/23/17 05:12 97.7 94 18 133/62 99 06/23/17 05:06 97.7 94 18 133/62 (85) 99 06/23/17 02:47 98.3 98 17 143/73 (96) 98 06/23/17 02:38 98.3 88 17 143/73 98 06/23/17 02:21 97.0 83 18 128/64 99 06/23/17 02:18 97.7 83 19 128/64 (85) 98 06/23/17 01:50 97.7 89 18 116/64 (81) 99 06/23/17 01:00 97.7 87 18 135/64 (87) 100 06/23/17 00:40 06/22/17 23:01 84 18 151/67 (95) 97 Nasal Cannula 2.00 06/22/17 21:24 99 Nasal Cannula 2.00 06/22/17 21:00 98.1 83 18 152/67 (95) 99 I/O 06/22/17 06/22/17 06/22/17 06/23/17 06/23/17 06/23/17 07:00 15:00 23:00 07:00 15:00 23:00 Intake Total 1075 ml 410 ml Output Total 950 ml 550 ml Balance 125 ml -140 ml Intake IV Total 100 ml Packed Cells 400 ml 400 ml Blood Product IV Normal Saline Flush 575 ml 10 ml Output Urine Total 950 ml 550 ml Result Diagram: 06/23/1743 06/23/17 0943 Imaging Last Impressions Hip and Pelvis X-Ray 06/22/172058 Signed Impressions: Service Date/Time: Thursday, June 22, 2017 21:41 - CONCLUSION: No fracture seen. Osteopenia. Kody Fajardo MD Chest X-Ray 06/22/172058 Signed Impressions: Service Date/Time: Thursday, June 22, 2017 21:46 - CONCLUSION: Patchy interstitial infiltrates in both lungs. Kody Fajardo MD Procedures Blood transfusion. Other Results Laboratory Tests Test 06/22/17 21:15 06/22/17 22:05 06/23/17 09:43 Platelet Estimate NORMAL Platelet Morphology Comment NORMAL Ovalocytes 1+ Keratocytes OCC Prothrombin Time 10.8 SEC Prothromb Time International Ratio 1.0 RATIO Activated Partial Thromboplast Time 19.5 SEC Ammonia 49 MCMOL/L Total Creatine Kinase 52 U/L Troponin I 0.02 NG/ML B-Type Natriuretic Peptide 110 PG/ML Urine Color LIGHT-YELLOW Urine Turbidity HAZY Urine pH 7.5 Urine Specific [place] 1.007 Urine Protein NEG mg/dL Urine Glucose (UA) NEG mg/dL Urine Ketones NEG mg/dL Urine Occult Blood NEG Urine Nitrite NEG Urine Bilirubin NEG Urine Urobilinogen LESS THAN 2.0 MG/DL Urine Leukocyte Esterase NEG Urine RBC LESS THAN 1 /hpf Urine WBC 1 /hpf Urine Amorphous Sediment OCC Urine Mucus FEW /lpf Microscopic Urinalysis Comment CATH-CULT NOT IND White Blood Count 9.7 TH/MM3 Red Blood Count 3.77 MIL/MM3 Hemoglobin 10.5 GM/DL Hematocrit 31.5 % Mean Corpuscular Volume 83.7 FL Mean Corpuscular Hemoglobin 27.9 PG Mean Corpuscular Hemoglobin Concent 33.3 % Red Cell Distribution Width 23.4 % Platelet Count 407 TH/MM3 Mean Platelet Volume 7.1 FL Neutrophils (%) (Auto) 74.1 % Lymphocytes (%) (Auto) 10.2 % Monocytes (%) (Auto) 8.8 % Eosinophils (%) (Auto) 6.3 % Basophils (%) (Auto) 0.6 % Neutrophils # (Auto) 7.2 TH/MM3 Lymphocytes # (Auto) 1.0 TH/MM3 Monocytes # (Auto) 0.9 TH/MM3 Eosinophils # (Auto) 0.6 TH/MM3 Basophils # (Auto) 0.1 TH/MM3 CBC Comment DIFF FINAL Differential Comment Blood Urea Nitrogen 12 MG/DL Creatinine 0.85 MG/DL Random Glucose 100 MG/DL Total Protein 6.3 GM/DL Albumin 3.1 GM/DL Calcium Level 8.6 MG/DL Alkaline Phosphatase 58 U/L Aspartate Amino Transf (AST/SGOT) 17 U/L Alanine Aminotransferase (ALT/SGPT) 23 U/L Total Bilirubin 1.2 MG/DL Sodium Level 141 MEQ/L Potassium Level 3.8 MEQ/L Chloride Level 103 MEQ/L Carbon Dioxide Level 30.3 MEQ/L Anion Gap 8 MEQ/L Estimat Glomerular Filtration Rate 63 ML/MIN Lactic Acid Level 0.7 mmol/L Phosphorus Level 3.6 MG/DL Magnesium Level 1.4 MG/DL Objective Remarks PE: Obese patient with no acute distress. GENERAL: Elderly white female in no acute distress. HEENT: PERRLA, EOMI. No scleral icterus or conjunctival pallor. No lid lag or facial droop. CARDIOVASCULAR: Regular rate and rhythm. No obvious murmurs to auscultation. No chest tenderness to palpation. RESPIRATORY: No obvious rhonchi or wheezing. Clear to auscultation. Breath sounds equal bilaterally. GASTROINTESTINAL: Abdomen soft, non-tender, nondistended. BS normal. MUSCULOSKELETAL: Extremities without clubbing, cyanosis, or edema. No obvious deformities. NEUROLOGICAL: Awake, alert and oriented x4. No focal neurologic deficits. Moving both upper and lower extremities spontaneously. Medications and IVs Current Medications Medications (Trade) Dose Ordered Sig/Cass Route Start Time Stop Time Status Last Admin (NS Flush) 2 ml UNSCH PRN IV FLUSH 06/22/17 21:00 (NS Flush) 2 ml UNSCH PRN IV FLUSH 06/23/17 00:15 (NS Flush) 2 ml BID IV FLUSH 06/23/17 09:00 06/23/17 09:20 (Zofran Inj) 4 mg Q6H PRN IVP 06/23/17 00:15 (Tylenol) 650 mg Q6H PRN PO 06/23/17 00:15 ([place] 5-325 Mg) 1 tab Q4H PRN PO 06/23/17 00:15 (Morphine Inj) 2 mg Q3H PRN IV PUSH 06/23/17 00:15 (Elisa-Colace) 1 tab BID PO 06/23/17 09:00 06/23/17 09:18 (Milk Of Magnesia Liq) 30 ml Q12H PRN PO 06/23/17 00:15 (Senokot) 17.2 mg Q12H PRN PO 06/23/17 00:15 (Dulcolax Supp) 10 mg DAILY PRN RECTAL 06/23/17 00:15 (Lactulose Liq) 30 ml DAILY PRN PO 06/23/17 00:15 (Vitamin C) 500 mg BID PO 06/23/17 09:00 06/23/17 09:16 (Ferrous Sulfate) 325 mg BID PO 06/23/17 09:00 06/23/17 09:17 (Lasix) 20 mg DAILY PO 06/23/17 09:00 06/23/17 09:19 (Protonix) 40 mg DAILY PO 06/23/17 09:00 06/23/17 09:18 A/P Assessment and Plan 1. Anemia: Recurrent. Hgb 7.7, previously 10.3 on 06/05/17. Recent admit 06/04 -06/06/17 for same, Hgb 7.5 requiring transfusion, s/p EGD 06/04/17 w/ hiatal hernia, normal stomach, normal duodenal mucosa. 2u pRBC ordered in ER, pending transfusion. Hb 10.5 after blood transfusion 2. Lactic Acidosis: Lactic Acid 2.2, no evidence of sepsis, likely secondary to volume depletion from anemia. Improved to 0.7 3. Acute on Chronic Heart failure with preserved Systolic function. Echo w/ EF 60%. BNP 110. CXR w/ patchy infiltrates, images reviewed by me, appear to be related more to congestion. S/p Levaquin in ER. Continue w/ diuresis, monitor I/O. 4. Hypokalemia: K+ 3.1. Replaced now 3.8 and status post blood transfusion of two units of PRBCs. 5. Hypomagnesemia replaced. DVT Prophylaxis: SCD/Teds. Pharmacologic contraindication in light of critical anemia. Discussed with patient her Daughter and Son in the room, they made the patient DNR States she has a follow up for next Sunday with her PCP and wants to go home. was asked for PT evaluation for discharge but as per her family she is at baseline and will get her evaluation as outpatient. Discharge Planning will discharge later today now that the patient is at baseline. Milton Lester MD Jun 23, 2017 14:35
--- NOTE | 2017-06-23 14:52 | EKG ---
Date Performed: 06/22/2017 Time Performed: 21:14:02 PTAGE: 86 years EKG: Sinus rhythm WITH FIRST DEGREE AV BLOCK LEFT VENTRICULAR HYPERTROPHY AND ST-T CHANGE ABNORMAL ECG PREVIOUS TRACING : 06/03/2017 23.22 Compared to prior tracing no significant change DOCTOR: Jacinto Rosenthal Interpretating Date/Time 06/23/2017 14:51:57
--- NOTE | 2017-06-23 15:07 | HHI.FF ---
Face to Face Verification Diagnosis: (1) Symptomatic anemia (2) Congestive heart failure (3) Iron deficiency anemia Physical Therapy Order: Evaluate and Treat, Improve ambulation, Strength and gait training Home Health Nursing Order: Medical education Signs/symptoms of disease process Medication education-adverse effect Nursing assessment with vital signs I have seen patient Debby José on 06/23/17. My clinical findings support the need for the requested home health care services because: Ltd mobility - disease progression I certify that my clinical findings support that this patient is homebound because: Unsafe to leave home unassisted Milton Lester MD Jun 23, 2017 3:07 pm
[2017-06-23] MEDS: MAGNESIUM SULFATE 1 GM PREMIX 100 ML IV SCH ×2 (15:09→15:10)
--- NOTE | 2017-06-23 15:13 | HHI.DS ---
Discharge Summary Admission Date Jun 22, 2017 at 23:56 Discharge Date: Jun 23, 2017 Admitting Diagnosis FTT, possible pna, Anemia. (1) Lactic acidosis ICD Code: E87.2 - Acidosis Diagnosis: Secondary (2) Hypokalemia ICD Code: E87.6 - Hypokalemia Diagnosis: Secondary (3) CHF (congestive heart failure) ICD Code: I50.9 - Heart failure, unspecified Diagnosis: Secondary (4) Symptomatic anemia ICD Code: D64.9 - Anemia, unspecified Diagnosis: Principal Procedures Blood transfusion. Brief History - From Admission This is an 86-year-old female with a PMH of HTN, CHF (Echo 06/06/17 w/ EF 60%), Hyperlipidemia and Anemia who was brought to the ER secondary to complaints of acute left hip pain. History difficult to obtain from patient, however she states she was sitting in recliner when had sudden onset of left hip pain. No injury or trauma. Son reports pt w/ increased weakness, concern for Anemia. Recent admit 06/04-06/06/17 for AMS/CHF, found to have Critical Anemia w/ Hgb 7.5 requiring transfusion, s/p eval by GI w/ EGD w/ no abnormal findings. On arrival, BP 150/67, HR 83, O2 sat 99% on RA, Afebrile. Hemoglobin 7.7, previously 10.3 on 06/05/17. Creatinine 1.03, producing 1.40 on 06/06/17. Lactic Acid 2.2. INR 1.0. UA negative. CXR patchy interstitial infiltrates bilaterally. Hip X-ray with no fracture seen. 2u pRBC ordered in ER, pending transfusion. CBC/BMP: 06/23/17 0943 06/23/17 0943 Significant Findings Laboratory Tests Test 06/22/17 21:15 06/22/17 22:05 06/23/17 09:43 Red Blood Count 2.89 MIL/MM3 (4.00-5.30) 3.77 MIL/MM3 (4.00-5.30) Hemoglobin 7.7 GM/DL (11.6-15.3) 10.5 GM/DL (11.6-15.3) Hematocrit 24.0 % (35.0-46.0) 31.5 % (35.0-46.0) Mean Corpuscular Hemoglobin 26.8 PG (27.0-34.0) Red Cell Distribution Width 27.2 % (11.6-17.2) 23.4 % (11.6-17.2) Neutrophils (%) (Auto) 76.3 % (16.0-70.0) 74.1 % (16.0-70.0) Eosinophils (%) (Auto) 6.4 % (0.0-4.0) 6.3 % (0.0-4.0) Eosinophils # (Auto) 0.6 TH/MM3 (0-0.4) 0.6 TH/MM3 (0-0.4) Ovalocytes 1+ (NORMAL) Keratocytes OCC (NORMAL) Activated Partial Thromboplast Time 19.5 SEC (24.3-30.1) Creatinine 1.03 MG/DL (0.50-1.00) Random Glucose 171 MG/DL (74-106) Total Protein 5.9 GM/DL (6.4-8.2) 6.3 GM/DL (6.4-8.2) Albumin 2.8 GM/DL (3.4-5.0) 3.1 GM/DL (3.4-5.0) Calcium Level 7.9 MG/DL (8.5-10.1) Potassium Level 3.1 MEQ/L (3.5-5.1) Estimat Glomerular Filtration Rate 51 ML/MIN (>89) 63 ML/MIN (>89) Lactic Acid Level 2.2 mmol/L (0.4-2.0) Ammonia 49 MCMOL/L (11-32) B-Type Natriuretic Peptide 110 PG/ML (0-100) Urine Turbidity HAZY (CLEAR) Urine Mucus FEW /lpf (OCC) Monocytes (%) (Auto) 8.8 % (0.0-8.0) Total Bilirubin 1.2 MG/DL (0.2-1.0) Magnesium Level 1.4 MG/DL (1.5-2.5) Imaging Last Impressions Hip and Pelvis X-Ray 06/22/172058 Signed Impressions: Service Date/Time: Thursday, June 22, 2017 21:41 - CONCLUSION: No fracture seen. Osteopenia. Kody Fajardo MD Chest X-Ray 06/22/172058 Signed Impressions: Service Date/Time: Thursday, June 22, 2017 21:46 - CONCLUSION: Patchy interstitial infiltrates in both lungs. Kody Fajardo MD PE at Discharge PE: Obese patient with no acute distress. GENERAL: Elderly white female in no acute distress. HEENT: PERRLA, EOMI. No scleral icterus or conjunctival pallor. No lid lag or facial droop. CARDIOVASCULAR: Regular rate and rhythm. No obvious murmurs to auscultation. No chest tenderness to palpation. RESPIRATORY: No obvious rhonchi or wheezing. Clear to auscultation. Breath sounds equal bilaterally. GASTROINTESTINAL: Abdomen soft, non-tender, nondistended. BS normal. MUSCULOSKELETAL: Extremities without clubbing, cyanosis, or edema. No obvious deformities. NEUROLOGICAL: Awake, alert and oriented x4. No focal neurologic deficits. Moving both upper and lower extremities spontaneously. Hospital Course This is an 86-year-old female with Hypertension, Heart Failure with preserved Systolic failure on Echocardiogram 06/06/17 with EF 60%, Hyperlipidemia and Anemia who was brought to the ER secondary to complaints of acute left hip pain No injury or trauma. Son reports pt w/ increased weakness, concern for Anemia. Recent admit 06/04-06/06/17 for AMS/CHF, found to have Critical Anemia w/ Hgb 7.5 requiring transfusion, s/p eval by GI w/ EGD w/ no abnormal findings. On arrival, BP 150/67, HR 83, O2 sat 99% on RA, Afebrile. Hemoglobin 7.7, previously 10.3 on 06/05/17. Creatinine 1.03, producing 1.40 on 06/06/17. Lactic Acid 2.2. INR 1.0. UA negative. CXR patchy interstitial infiltrates bilaterally. Hip X-ray with no fracture seen. 2u pRBC ordered in ER, pending transfusion. Discussed in the room with her Son and Daughter they want the patient as DNR and she has follow up with PCP next Sunday asked for Physical Therapy evaluation, for discharge. Assessment and Plan 1. Anemia: Recurrent. Hgb 7.7, previously 10.3 on 06/05/17. Recent admit 06/04 -06/06/17 for same, Hgb 7.5 requiring transfusion, s/p EGD 06/04/17 w/ hiatal hernia, normal stomach, normal duodenal mucosa. 2u pRBC ordered in ER, pending transfusion. Hb 10.5 after blood transfusion 2. Lactic Acidosis: Lactic Acid 2.2, no evidence of sepsis, likely secondary to volume depletion from anemia. Improved to 0.7 3. Acute on Chronic Heart failure with preserved Systolic function. Echo w/ EF 60%. BNP 110. CXR w/ patchy infiltrates, images reviewed by me, appear to be related more to congestion. S/p Levaquin in ER. Continue w/ diuresis, monitor I/O. 4. Hypokalemia: K+ 3.1. Replaced now 3.8 and status post blood transfusion of two units of PRBCs. 5. Hypomagnesemia replaced. DVT Prophylaxis: SCD/Teds. Pharmacologic contraindication in light of critical anemia. Discussed with patient her Daughter and Son in the room, they made the patient DNR States she has a follow up for next Sunday with her PCP and wants to go home. was asked for PT evaluation for discharge but as per her family she is at baseline and will get her evaluation as outpatient. Discharge Planning will discharge later today now that the patient is at baseline. Pt Condition on Discharge: Stable Discharge Disposition: Disch w/ Home Health Serv Discharge Time: <= 30 minutes Discharge Instructions DIET: Follow Instructions for: Heart Healthy Diet Activities you can perform: Regular-No Restrictions Other Activity Instructions: Follow recommendations by Physical Therapy Milton Lester MD Jun 23, 2017 15:12
== END 2017-06-23 17:25 | disposition home health service (06) | DRG 811 ==
LOC: NEPC 20:48 → NEDA 23:56 → N05A 06-23 00:57
PROVIDERS: ADMIT Internal Medicine; ATTEND Internal Medicine
PROC: 30233N1 Transfusion of Nonautologous Red Blood Cells into Peripheral Vein, Percutaneous Approach (ICD-10-PCS; principal; 2017-06-23)
DX: D50.9 Iron deficiency anemia, unspecified (principal); I50.33 Acute on chronic diastolic (congestive) heart failure; E87.2 Acidosis; I11.0 Hypertensive heart disease with heart failure; E83.42 Hypomagnesemia; E86.9 Volume depletion, unspecified; E87.6 Hypokalemia; E78.5 Hyperlipidemia, unspecified; K44.9 Diaphragmatic hernia without obstruction or gangrene; R62.7 Adult failure to thrive; M19.90 Unspecified osteoarthritis, unspecified site; M25.552 Pain in left hip; Z66 Do not resuscitate
CPT/HCPCS: 36430; 71010; 73502; 80053; 81001; 82140; 82550; 83605; 83735; 83880; 84100; 84484; 85025; 85610; 85730; 86850; 86900; 86901; 86920; 93005; 96365; J1940; J1956; J3475; P9016; P9612

== ENCOUNTER 2017-07-24 12:38 | Observation (INO) | payer MEDICARE, OTHER ==
[~2017-07-24] VITALS: Ht 160 cm; Wt 100.2 kg
[2017-07-24] VITALS (8 sets, daily range): BP systolic 89–134; BP diastolic 54–68; PULSE 82–90; RESP 16–18; TEMP 96.9–97.9; O2SAT 95–100
--- NOTE | 2017-07-24 12:54 | PD ---
HPI Chief Complaint: General Weakness Time Seen by Provider: 12:50 Travel History International Travel<30 days: No Contact w/Intl Traveler<30days: No Traveled to known affect area: No History of Present Illness HPI 86 YO F with PMH of dementia, HTN, anemia presents to the ED via EMS for evaluation of altered mental status. Per EMS report the patient lives at home with her son. He is on vacation and the patient is currently being cared for by her other son. He reports that his mother "hasn't seemed right, seems more confused than usual today." On arrival the patient is alert and oriented to self and situation. She denies recent history of fever, chills, headaches, dizziness, chest pain, palpitations, cough, shortness of breath, abdominal pain. She does complain of urinary urgency. PFSH Past Medical History Arthritis: Yes Asthma: No Autoimmune Disease: No Blood Disorders: No Heart Rhythm Problems: No Cancer: No Cardiovascular Problems: Yes High Cholesterol: Yes Chemotherapy: No Chest Pain: No Congestive Heart Failure: Yes (about 10 years ago) COPD: No Diabetes: No Diminished Hearing: No Endocrine: No Gastrointestinal Disorders: No GERD: No Genitourinary: Yes Hiatal Hernia: No Hypertension: Yes Immune Disorder: No Kidney Stones: No Musculoskeletal: No Neurologic: No Psychiatric: No Reproductive: No Respiratory: Yes Immunizations Current: Yes Radiation Therapy: No Renal Failure: No Sickle Cell Disease: No Sleep Apnea: No Thyroid Disease: No Ulcer: Yes (back in 60s) ?: Not Menopausal: Yes : 3 Para: 3 Past Surgical History Abdominal Surgery: No Arteriovenous Shunt: No Cardiac Surgery: No Ear Surgery: No Endocrine Surgery: No Eye Surgery: No Genitourinary Surgery: No Gynecologic Surgery: No Hysterectomy: Yes Insulin Pump: No Joint Replacement: No Oral Surgery: No Pacemaker: No Thoracic Surgery: No Other Surgery: Yes Social History Alcohol Use: No Tobacco Use: No Substance Use: No Allergies-Medications (Allergen,Severity, Reaction): Coded Allergies: No Known Allergies (Verified Allergy, Unknown, 06/23/17) Reported Meds & Prescriptions Reported Meds & Active Scripts Active Ferosul (Ferrous Sulfate) 325 Mg (65 Mg Iron) Tablet 325 Mg PO BID 30 Days Pantoprazole (Pantoprazole Sodium) 40 Mg Tab 40 Mg PO DAILY 30 Days Reported D3 Maximum Strength (Cholecalciferol) 5,000 Unit Cap 5,000 Units PO DAILY B12 (Cyanocobalamin) 1,000 Mcg Tab Hydrochlorothiazide 25 Mg Tab 25 Mg PO DAILY Allopurinol 100 Mg Tab 100 Mg PO DAILY Pravastatin 80 Mg Tab 20 Mg PO HS Review of Systems Except as stated in HPI: all other systems reviewed are Neg Physical Exam Narrative GENERAL: Well-nourished, well-developed white female in no acute distress. Follows commands. Answers questions appropriately. SKIN: Focused skin assessment warm/dry. HEAD: Normocephalic. EYES: No scleral icterus. No injection or drainage. PERRLA. EOMI. NECK: Supple, trachea midline. No JVD or lymphadenopathy. CARDIOVASCULAR: Regular rate and rhythm without murmurs, gallops, or rubs. RESPIRATORY: Breath sounds clear and equal bilaterally. No accessory muscle use. GASTROINTESTINAL: Abdomen soft, non-tender, nondistended. Active bowel sounds. RECTAL EXAM: No masses or tenderness, stool is dark. Guaiac positive. MUSCULOSKELETAL: No cyanosis. Edema to the knees bilaterally. NEUROLOGICAL: Awake and alert. Cranial nerves II through XII intact. Motor and sensory grossly within normal limits. Five out of 5 muscle strength in all muscle groups. Normal speech. BACK: Nontender without obvious deformity. No CVA tenderness. Data Data Last Documented VS Vital Signs Date Time Temp Pulse Resp B/P (MAP) Pulse Ox O2 Delivery O2 Flow Rate FiO2 07/24/17 12:44 97.2 85 17 116/63 (80) 100 Orders Orders Complete Blood Count With Diff (07/24/17 12:50) Comprehensive Metabolic Panel (07/24/17 12:50) Prothrombin Time / Inr (Pt) (07/24/17 12:50) Act Partial Throm Time (Ptt) (07/24/17 12:50) Urinalysis - C+S If Indicated (07/24/17 12:50) Chest, Single Ap (07/24/17 12:50) Blood Glucose (07/24/17 12:50) Ecg Monitoring (07/24/17 12:50) Iv Access Insert/Monitor (07/24/17 12:50) Oximetry (07/24/17 12:50) Sodium Chloride 0.9% Flush (Ns Flush) (07/24/17 13:00) Cath For Specimen (07/24/17 12:56) Type And Screen (07/24/17 13:27) Red Blood Cells (Rbc) (07/24/17 13:27) Ct Brain W/O Iv Contrast(Rout) (07/24/17 ) Blood Product Administration (07/24/17 14:50) Sodium Chlor 0.9% 250 Ml Inj (Ns 250 Ml (07/24/17 15:00) Potassium Chlor 20 Meq Premix (Kcl 20 Me (07/24/17 15:00) Potassium Chloride (Kcl) (07/24/17 15:00) Pantoprazole Inj (Protonix Inj) (07/24/17 15:15) Consult Gastroenterology (07/24/17 ) Acetaminophen (Tylenol) (07/24/17 15:45) Labs Laboratory Tests Test 07/24/17 12:55 07/24/17 13:09 07/24/17 13:45 07/24/17 13:52 White Blood Count 14.1 TH/MM3 Red Blood Count 2.02 MIL/MM3 Hemoglobin 6.1 GM/DL Hematocrit 19.1 % Mean Corpuscular Volume 94.4 FL Mean Corpuscular Hemoglobin 30.3 PG Mean Corpuscular Hemoglobin Concent 32.1 % Red Cell Distribution Width 23.6 % Platelet Count 375 TH/MM3 Mean Platelet Volume 7.3 FL Neutrophils (%) (Auto) 81.8 % Lymphocytes (%) (Auto) 7.9 % Monocytes (%) (Auto) 5.7 % Eosinophils (%) (Auto) 3.3 % Basophils (%) (Auto) 1.3 % Neutrophils # (Auto) 11.5 TH/MM3 Lymphocytes # (Auto) 1.1 TH/MM3 Monocytes # (Auto) 0.8 TH/MM3 Eosinophils # (Auto) 0.5 TH/MM3 Basophils # (Auto) 0.2 TH/MM3 CBC Comment AUTO DIFF Differential Total Cells Counted 100 Neutrophils % (Manual) 72 % Band Neutrophils % 6 % Lymphocytes % 9 % Monocytes % 6 % Eosinophils % 2 % Basophils % 1 % Neutrophils # (Manual) 11.6 TH/MM3 Myelocytes 4 % Nucleated Red Blood Cells 1 /100 WBC Differential Comment FINAL DIFF MANUAL Platelet Estimate NORMAL Platelet Morphology Comment NORMAL Polychromasia 4.1 % Urine Color YELLOW Urine Turbidity CLEAR Urine pH 5.5 Urine Specific [place] 1.015 Urine Protein NEG mg/dL Urine Glucose (UA) NEG mg/dL Urine Ketones NEG mg/dL Urine Occult Blood NEG Urine Nitrite NEG Urine Bilirubin NEG Urine Urobilinogen LESS THAN 2.0 MG/DL Urine Leukocyte Esterase SMALL Urine RBC LESS THAN 1 /hpf Urine WBC LESS THAN 1 /hpf Urine Squamous Epithelial Cells <1 /hpf Microscopic Urinalysis Comment CATH-CULT NOT IND Blood Urea Nitrogen 34 MG/DL Creatinine 1.14 MG/DL Random Glucose 110 MG/DL Total Protein 5.7 GM/DL Albumin 2.8 GM/DL Calcium Level 8.1 MG/DL Alkaline Phosphatase 49 U/L Aspartate Amino Transf (AST/SGOT) 23 U/L Alanine Aminotransferase (ALT/SGPT) 26 U/L Total Bilirubin 0.3 MG/DL Sodium Level 138 MEQ/L Potassium Level 2.7 MEQ/L Chloride Level 101 MEQ/L Carbon Dioxide Level 27.4 MEQ/L Anion Gap 10 MEQ/L Estimat Glomerular Filtration Rate 45 ML/MIN Prothrombin Time 10.6 SEC Prothromb Time International Ratio 1.0 RATIO Activated Partial Thromboplast Time 17.8 SEC MDM Medical Decision Making Medical Screen Exam Complete: Yes Emergency Medical Condition: Yes Differential Diagnosis UTI versus PNA versus anemia verus GI bleed versus metabolic derangement versus dehydration versus other Narrative Course 86 YO F with PMH of dementia, HTN, anemia presents to the ED via EMS for evaluation of altered mental status. Per EMS report the patient is currently being cared for by her son. He reports that his mother "hasn't seemed right, seems more confused than usual today." On arrival the patient is alert and oriented to self and situation. She denies recent history of fever, chills, headaches, dizziness, chest pain, palpitations, cough, shortness of breath, abdominal pain. She does complain of urinary urgency. Vitals reviewed. Physical exam reveals a nontoxic-appearing white female in no acute distress. She follows commands and answers questions appropriately. Chest is CTAB. Abdomen soft and nontender. She has edema of the bilateral lower extremities to the knees. Guiaic positive on rectal exam. Exam otherwise unremarkable. The patient's son arrives to the ED and states that his mother has been repetitively questioning today, was unable to get off the couch after sitting down. He states that she's been eating and drinking normally. He denies that she's had fevers. States that she had grayson and eggs for breakfast today. CBC: WBC 14.1 with a left shift hemoglobin 6.1. Hematocrit 19.1 Coags: INR 1.0 CMP: BUN 34, creatinine 1.14. Potassium 2.7. Calcium 8.1. UA: No culture indicated. CXR: No acute airspace disease or congestion per radiology read. CT brain: negative for acute process. Patient was administered 20 mEq potassium by mouth, 20 mEq potassium IV. She was administered a dose of Protonix. We'll administer 2 units of blood pending type and screen. I discussed the results of the workup with the patient's son who is agreeable to admission. Per record review the patient is followed by Dr. Mckeon. GI consult placed. I discussed the patient with Dr. Sevilla who agrees to accept the patient to the medicine service. Please see medicine notes for disposition. [facility] Point of Care Internal Pos. & Neg. Controls: Passed Fecal Specimen Occult Blood: Positive Brianna Ramos Jul 24, 2017 12:54
[2017-07-24] MEDS ORDERED: SODIUM CHLORIDE 0.9% FLUSH 10 ML FLUSH IV FLUSH PRN (13:00)
[2017-07-24 13:16] LABS: AUTOMATED NEUTROPHIL # 11.5 TH/MM3 (1.8-7.7); BASOPHIL # 0.2 TH/MM3 (0-0.2); BASOPHIL % 1.3 % (0.0-2.0); EOSINOPHIL # 0.5 TH/MM3 (0-0.4); EOSINOPHIL % 3.3 % (0.0-4.0); LYMPH % 7.9 % (9.0-44.0); LYMPHOCYTE # 1.1 TH/MM3 (1.0-4.8); MEAN CELL VOLUME 94.4 FL (80.0-100.0); MEAN CORPUSCULAR HEMOGLOBIN 30.3 PG (27.0-34.0); MEAN CORPUSCULAR HGB CONC 32.1 % (32.0-36.0); MEAN PLATELET VOLUME 7.3 FL (7.0-11.0); MONO % 5.7 % (0.0-8.0); MONOCYTE # 0.8 TH/MM3 (0-0.9); NEUT % 81.8 % (16.0-70.0); PLATELET COUNT 375 TH/MM3 (150-450); RED BLOOD COUNT 2.02 MIL/MM3 (4.00-5.30); RED CELL DISTRIBUTION WIDTH 23.6 % (11.6-17.2); WHITE BLOOD COUNT 14.1 TH/MM3 (4.0-11.0)
[2017-07-24 13:22] LABS: HEMATOCRIT 19.1 % (35.0-46.0); HEMOGLOBIN 6.1 GM/DL (11.6-15.3)
[2017-07-24] MEDS ORDERED: CYAN1TAB24 (13:33)
[2017-07-24] MEDS ORDERED: ALLO100T PO (13:33)
[2017-07-24] MEDS ORDERED: HYDR25TA5 PO (13:33)
[2017-07-24] MEDS ORDERED: D 50CAP2 PO (13:33)
[2017-07-24 13:36] LABS: BILIRUBIN, URINE NEG (NEG); BLOOD, URINE NEG (NEG); GLUCOSE,URINE NEG (NEG); KETONE, URINE NEG (NEG); NITRITE,URINE NEG (NEG); PH, URINE 5.5 (5.0-8.5); SQUAMOUS EPITHELIAL CELL URINE <1 /hpf (0-5); URINE COLOR YELLOW (YELLW/STRAW); URINE LEUKOCYTE ESTERASE SMALL (NEG)
[2017-07-24 13:43] LABS: ALBUMIN 2.8 GM/DL (3.4-5.0); ALKALINE PHOSPHATASE 49 U/L (45-117); ALT (GPT) 26 U/L (10-53); AST (GOT) 23 U/L (15-37); BICARBONATE 27.4 MEQ/L (21.0-32.0); CALCIUM 8.1 MG/DL (8.5-10.1); CHLORIDE 101 MEQ/L (98-107); CREATININE 1.14 MG/DL (0.50-1.00); GLOMERULAR FILTRATION RATE 45 ML/MIN (>89); GLUCOSE,RANDOM 110 MG/DL (74-106); SODIUM (NA) 138 MEQ/L (136-145); TOTAL BILIRUBIN ADULT 0.3 MG/DL (0.2-1.0); TOTAL PROTEIN 5.7 GM/DL (6.4-8.2)
--- NOTE | 2017-07-24 14:11 | RADRPT ---
EXAM DATE/TIME: 07/24/2017 13:06 [facility] COMPARISON: CHEST SINGLE AP, June 22, 2017, 21:46. INDICATIONS : Shortness of breath. MEDICAL HISTORY : Hypercholesterolemia. Hypertension. Congestive heart failure. COPD SURGICAL HISTORY : None. ENCOUNTER: Initial ACUITY: 1 day PAIN SCORE: 1/10 LOCATION: Bilateral chest FINDINGS: A single view of the chest demonstrates hypoaerated lungs with diffuse coarse interstitial prominence . There is no evidence of consolidating airspace disease or acute congestion. Heart is stable in appearance. CONCLUSION: Hypoaeration with interstitial prominence characteristic of restrictive lung disease. No evidence of acute air space disease or acute congestion. Bridger Sepulveda MD on July 24, 2017 at 14:08 Board Certified Radiologist. This report was verified electronically.
[2017-07-24 14:12] LABS: PROTHROMBIN TIME - PATIENT 10.6 SEC (9.8-11.6)
[2017-07-24 14:18] LABS: BANDS 6 % (0-6); BASOPHILS 1 % (0-2); CORRECTED NUCLEATED RBC 1 /100 WBC (0-0); LYMPHOCYTES 9 % (9-44); MONOCYTES 6 % (0-8); MYELOCYTES 4 % (0-0); NEUTROPHIL # MANUAL DIFF 11.6 TH/MM3 (1.8-7.7); NUCLEATED RED BLOOD CELL 1 (0-0); POLYS (SEG NEUTROPHILS) 72 % (16-70)
[2017-07-24 14:19] LABS: POLYCHROMASIA 4.1 % (0.0-1.9)
[2017-07-24 14:28] LABS: BLOOD UREA NITROGEN 34 MG/DL (7-18)
[2017-07-24] MEDS ORDERED: SODIUM CHLOR 0.9% 250 ML INJ 250 ML IV ONE (15:00)
[2017-07-24] MEDS ORDERED: POTASSIUM CHLOR 20 MEQ PREMIX 100 ML IV ONE (15:00)
[2017-07-24] MEDS ORDERED: POTASSIUM CHLORIDE 20 MEQ CONTROLLED RELEASE TAB PO ONE (15:00)
--- NOTE | 2017-07-24 15:14 | RADRPT ---
EXAM DATE/TIME: 07/24/2017 14:36 [facility] COMPARISON: CT BRAIN W/O CONTRAST, April 07, 2017, 9:49. INDICATIONS : Altered mental status RADIATION DOSE: 35.69 CTDIvol (mGy) MEDICAL HISTORY : Cardiovascular disease. Hypertension. SURGICAL HISTORY : Hysterectomy. ENCOUNTER: Initial ACUITY: 1 day PAIN SCALE: 0/10 LOCATION: cranial TECHNIQUE: Multiple contiguous axial images were obtained of the head. Using automated exposure control and adj ustment of the mA and/or kV according to patient size, radiation dose was kept as low as reasonably a chievable to obtain optimal diagnostic quality images. DICOM format image data is available electro nically for review and comparison. FINDINGS: There is a stable tiny lacunar infarct in the left [place] array to. There is patchy diminished attenu ation and deep white matter structures which is likely chronic ischemic in etiology. There is no evid ence of intracranial mass or hemorrhage. There is nothing to suggest acute infarction. The extracrani al structures are benign and intact. CONCLUSION: No acute intracranial findings Shayan Simon MD on July 24, 2017 at 15:05 Board Certified Radiologist. This report was verified electronically.
[2017-07-24] MEDS ORDERED: PANTOPRAZOLE SODIUM 40 MG VIAL IV PUSH ONE (15:15)
[2017-07-24] MEDS ORDERED: ACETAMINOPHEN 500 MG CPLT PO ONE (15:45)
--- NOTE | 2017-07-24 16:38 | PD.CONS ---
HPI History of Present Illness This is a 86 year old obese female who was brought into the emergency room by her son he states that she has had generalized weakness as well as confusion today and was unable to get out of the chair. Son called the fire department to assist him in getting her up and assess her. It was decided at that point that she needed to be evaluated further. Patient is pleasantly confused and is unable to give any history or current or recent. Son has called other family member to verify patient's last EGD and colonoscopy which appeared to have been in May 2017, but unable to review. Patient's skin color is pale, she is awake able answer question. Nurse states that patient is having dark tarry stools since admission. Patient was able to eat breakfast this morning, no known nausea or vomiting, no known diarrhea or constipation. According to the record patient is not on any type of blood thinners, but son states patient does have an appointment some time at the first of the year to see hematology for iron deficiency anemia (Patsy Estrella) PFSH Past Medical History According to the record Dementia Cardiovascular disease Arthritis hyperlipidemia Congestive heart failure Iron deficiency anemia Degenerative disc disease possible ulcer many years ago Past Surgical History According to the record hysterectomy (Patsy Estrella) Coded Allergies: No Known Allergies (Verified Allergy, Unknown, 06/23/17) Medications Administered Medications Medications (Trade) Dose Ordered Sig/Cass Route PRN Reason Start Time Stop Time Status Last Admin Dose Admin Sodium Chloride 250 ml @ 15 mls/hr ONCE ONCE IV 07/24/17 15:00 07/25/17 07:39 07/24/17 15:47 Potassium Chloride 100 ml @ 50 mls/hr BOLUS ONCE IV 07/24/17 15:00 07/24/17 16:59 07/24/17 16:15 Family History Unknown Social History Currently lives with her son who is on vacation. There is another son from out of town who is currently here staying with her No known tobacco or alcohol usage (Patsy Estrella) GI Exam Vitals I&O Vital Signs Date Time Temp Pulse Resp B/P (MAP) Pulse Ox O2 Delivery O2 Flow Rate FiO2 07/24/17 16:09 100 Nasal Cannula 2.00 07/24/17 12:44 97.2 85 17 116/63 (80) 100 Imaging Last Impressions Chest X-Ray 12/26/17 1250 Signed Impressions: Service Date/Time: Monday, July 24, 2017 13:06 - CONCLUSION: Hypoaeration with interstitial prominence characteristic of restrictive lung disease. No evidence of acute air space disease or acute congestion. Bridger Sepulveda MD Head CT 07/24/17 0000 Signed Impressions: Service Date/Time: Monday, July 24, 2017 14:36 - CONCLUSION: No acute intracranial findings Shayan Simon MD Laboratory Test 07/24/17 12:55 07/24/17 13:09 07/24/17 13:45 07/24/17 13:52 White Blood Count 14.1 TH/MM3 Red Blood Count 2.02 MIL/MM3 Hemoglobin 6.1 GM/DL Hematocrit 19.1 % Mean Corpuscular Volume 94.4 FL Mean Corpuscular Hemoglobin 30.3 PG Mean Corpuscular Hemoglobin Concent 32.1 % Red Cell Distribution Width 23.6 % Platelet Count 375 TH/MM3 Mean Platelet Volume 7.3 FL Neutrophils (%) (Auto) 81.8 % Lymphocytes (%) (Auto) 7.9 % Monocytes (%) (Auto) 5.7 % Eosinophils (%) (Auto) 3.3 % Basophils (%) (Auto) 1.3 % Neutrophils # (Auto) 11.5 TH/MM3 Lymphocytes # (Auto) 1.1 TH/MM3 Monocytes # (Auto) 0.8 TH/MM3 Eosinophils # (Auto) 0.5 TH/MM3 Basophils # (Auto) 0.2 TH/MM3 CBC Comment AUTO DIFF Differential Total Cells Counted 100 Neutrophils % (Manual) 72 % Band Neutrophils % 6 % Lymphocytes % 9 % Monocytes % 6 % Eosinophils % 2 % Basophils % 1 % Neutrophils # (Manual) 11.6 TH/MM3 Myelocytes 4 % Nucleated Red Blood Cells 1 /100 WBC Differential Comment FINAL DIFF MANUAL Platelet Estimate NORMAL Platelet Morphology Comment NORMAL Polychromasia 4.1 % Urine Color YELLOW Urine Turbidity CLEAR Urine pH 5.5 Urine Specific [place] 1.015 Urine Protein NEG mg/dL Urine Glucose (UA) NEG mg/dL Urine Ketones NEG mg/dL Urine Occult Blood NEG Urine Nitrite NEG Urine Bilirubin NEG Urine Urobilinogen LESS THAN 2.0 MG/DL Urine Leukocyte Esterase SMALL Urine RBC LESS THAN 1 /hpf Urine WBC LESS THAN 1 /hpf Urine Squamous Epithelial Cells <1 /hpf Microscopic Urinalysis Comment CATH-CULT NOT IND Blood Urea Nitrogen 34 MG/DL Creatinine 1.14 MG/DL Random Glucose 110 MG/DL Total Protein 5.7 GM/DL Albumin 2.8 GM/DL Calcium Level 8.1 MG/DL Alkaline Phosphatase 49 U/L Aspartate Amino Transf (AST/SGOT) 23 U/L Alanine Aminotransferase (ALT/SGPT) 26 U/L Total Bilirubin 0.3 MG/DL Sodium Level 138 MEQ/L Potassium Level 2.7 MEQ/L Chloride Level 101 MEQ/L Carbon Dioxide Level 27.4 MEQ/L Anion Gap 10 MEQ/L Estimat Glomerular Filtration Rate 45 ML/MIN Prothrombin Time 10.6 SEC Prothromb Time International Ratio 1.0 RATIO Activated Partial Thromboplast Time 17.8 SEC Physical Examination HEENT: Pupils round and reactive to light; normocephalic; atraumatic; no jaundice skin color pale NECK: Neck is supple, no JVD, no lymphadenopathy. CHEST: Chest is clear to auscultation and percussion. CARDIAC: Regular rate and rhythm with no murmur gallop or rubs. ABDOMEN: Soft, nondistended, nontender; no hepatosplenomegaly; bowel sounds are present in all four quadrants. EXTREMITIES: No clubbing, cyanosis, or edema. SKIN: Normal; thin turgor, no rash; no jaundice. LAB SYSTEMS ANALYST: Pleasant disorientation to place time and situation (Patsy Estrella) Assessment and Plan Assessment: (1) Upper GI bleed ICD Codes: K92.2 - Gastrointestinal hemorrhage, unspecified (2) GI bleeding ICD Codes: K92.2 - Gastrointestinal hemorrhage, unspecified (3) Anemia ICD Codes: D64.9 - Anemia, unspecified (4) Iron deficiency anemia ICD Codes: D50.9 - Iron deficiency anemia, unspecified (5) Symptomatic anemia ICD Codes: D64.9 - Anemia, unspecified Plan GI bleed, patient has known history of iron deficiency anemia, but current GI bleed is unspecified. According to nurse patient has dark tarry stools. Last EGD colonoscopy done in May 2017 but report unavailable for viewing. Consider RBC scan, although patient does appear to be hemodynamically stable and bleeding according to the nurse is dark tarry. PPI IV Monitor for any acute bright red bleeding episodes We'll check hemoglobin and hematocrit every 6h, patient is currently being evaluated for transfusion Nothing by mouth for now Plan EGD for in the morning, consents to be signed Plan of care will be based on patient's symptoms and needs Case will be discussed with Dr. Prajapati, this note is written on his behalf (Patsy Estrella) Physician Comments Agree with above assessment and plan. Will follow up with you. (Adelia Prajapati MD) Patsy Estrella Jul 24, 2017 16:38 Adelia Prajapati MD Jul 25, 2017 09:15
[2017-07-24] MEDS: SODIUM CHLOR 0.9% 1000 ML INJ 1,000 ML IV SCH (16:43)
--- NOTE | 2017-07-24 19:38 | HHI.HP ---
[facility] Chris Hopkins MD Admission Diagnosis anemia, GI bleed, hypokalemia Diagnoses: Chief Complaint: Acute worsening Weakness, confusion Travel History International Travel<30 Days: No Contact w/Intl Traveler <30 Da: No Traveled to Known Affected Are: No History of Present Illness 86 years old female with history of coronary artery disease arthritis hyperlipidemia and CHF and chronic anemia, who recently had EGD in May 2017 for her anemia, came back prior by her son due to feeling extremely weak, slightly change in mental status and confusion. She wasn't able to move out of her chair. In ED she was found to have hemoglobin been of 6.5, no hematemesis or hematochezia however to PT was positive in ED, she reported some chest discomfort yesterday, no nausea or vomiting no diarrhea no fever or chills Review of Systems All systems reviewed and was positive for what is mentioned in history of present illness otherwise negative Past Family Social History Past Medical History Iron deficiency anemia Degenerative disc disease Dementia Cardiovascular disease Arthritis hyperlipidemia ?Congestive heart failure Questionable peptic ulcer disease Past Surgical History hysterectomy Allergies: Coded Allergies: No Known Allergies (Verified Allergy, Unknown, 06/23/17) Family History Review noncontributory Social History Patient quit smoking 25 years ago no alcohol or also drug abuse Physical Exam Vital Signs Vital Signs Date Time Temp Pulse Resp B/P (MAP) Pulse Ox O2 Delivery O2 Flow Rate FiO2 07/24/17 17:32 97.2 90 17 134/60 (84) 95 07/24/17 16:58 97.8 88 17 120/59 100 07/24/17 16:30 97.9 84 16 117/68 (84) 100 Nasal Cannula 2.00 07/24/17 16:09 100 Nasal Cannula 2.00 07/24/17 12:44 97.2 85 17 116/63 (80) 100 Physical Exam GENERAL: This is a frail pleasant elderly lady, in no apparent distress. SKIN: No rashes, warm and dry HEAD: Atraumatic. Normocephalic. EYES: Pupils equal round and reactive. Extraocular motions intact. No scleral icterus. ENT: Nose without bleeding, or drainage, Airway patent. NECK: Trachea midline. Supple CARDIOVASCULAR: Regular rate and rhythm with a systolic murmur, gallops, or rubs. RESPIRATORY: Fair air entry bilaterally. No wheezes, rales, or rhonchi. GASTROINTESTINAL: Abdomen soft, non-tender, nondistended. Positive bowel sounds MUSCULOSKELETAL: Extremities without clubbing, cyanosis +1 edema with scalded skin, pedal pulses appreciated NEUROLOGICAL: Awake and alert. Moves all extremity. Normal speech.no focal neurological deficit Laboratory Laboratory Tests Test 07/24/17 12:55 07/24/17 13:09 07/24/17 13:45 07/24/17 13:52 White Blood Count 14.1 Red Blood Count 2.02 Hemoglobin 6.1 Hematocrit 19.1 Mean Corpuscular Volume 94.4 Mean Corpuscular Hemoglobin 30.3 Mean Corpuscular Hemoglobin Concent 32.1 Red Cell Distribution Width 23.6 Platelet Count 375 Mean Platelet Volume 7.3 Neutrophils (%) (Auto) 81.8 Lymphocytes (%) (Auto) 7.9 Monocytes (%) (Auto) 5.7 Eosinophils (%) (Auto) 3.3 Basophils (%) (Auto) 1.3 Neutrophils # (Auto) 11.5 Lymphocytes # (Auto) 1.1 Monocytes # (Auto) 0.8 Eosinophils # (Auto) 0.5 Basophils # (Auto) 0.2 CBC Comment AUTO DIFF Differential Total Cells Counted 100 Neutrophils % (Manual) 72 Band Neutrophils % 6 Lymphocytes % 9 Monocytes % 6 Eosinophils % 2 Basophils % 1 Neutrophils # (Manual) 11.6 Myelocytes 4 Nucleated Red Blood Cells 1 Differential Comment FINAL DIFF MANUAL Platelet Estimate NORMAL Platelet Morphology Comment NORMAL Polychromasia 4.1 Urine Color YELLOW Urine Turbidity CLEAR Urine pH 5.5 Urine Specific [place] 1.015 Urine Protein NEG Urine Glucose (UA) NEG Urine Ketones NEG Urine Occult Blood NEG Urine Nitrite NEG Urine Bilirubin NEG Urine Urobilinogen LESS THAN 2.0 Urine Leukocyte Esterase SMALL Urine RBC LESS THAN 1 Urine WBC LESS THAN 1 Urine Squamous Epithelial Cells <1 Microscopic Urinalysis Comment CATH-CULT NOT IND Blood Urea Nitrogen 34 Creatinine 1.14 Random Glucose 110 Total Protein 5.7 Albumin 2.8 Calcium Level 8.1 Alkaline Phosphatase 49 Aspartate Amino Transf (AST/SGOT) 23 Alanine Aminotransferase (ALT/SGPT) 26 Total Bilirubin 0.3 Sodium Level 138 Potassium Level 2.7 Chloride Level 101 Carbon Dioxide Level 27.4 Anion Gap 10 Estimat Glomerular Filtration Rate 45 Prothrombin Time 10.6 Prothromb Time International Ratio 1.0 Activated Partial Thromboplast Time 17.8 Result Diagram: 07/24/17 1255 07/24/17 1345 Imaging Last Impressions Chest X-Ray 07/24/17 1250 Signed Impressions: Service Date/Time: Monday, July 24, 2017 13:06 - CONCLUSION: Hypoaeration with interstitial prominence characteristic of restrictive lung disease. No evidence of acute air space disease or acute congestion. Bridger Sepulveda MD Head CT 07/24/17 0000 Signed Impressions: Service Date/Time: Monday, July 24, 2017 14:36 - CONCLUSION: No acute intracranial findings MD Taz Dalton VTE Risk Assessment Capchanteli VTE Risk Assessment: Mod/High Risk (score >= 2) Caprini Risk Assessment Model Point Value = 1 Point Value = 2 Point Value = 3 Point Value = 5 Age 41-60 Minor surgery BMI > 25 kg/m2 Swollen legs Varicose veins or History of unexplained or recurrent spontaneous Oral contraceptives or hormone replacement Sepsis (< 1 month) Serious lung disease, including pneumonia (< 1 month) Abnormal pulmonary function Acute myocardial infarction Congestive heart failure (< 1 month) History of inflammatory bowel disease Medical patient at bed rest Age 61-74 Arthroscopic surgery Major open surgery (> 45 min) Laparoscopic surgery (> 45 min) Malignancy Confined to bed (> 72 hours) Immobilizing plaster cast Central venous access Age >= 75 History of VTE Family history of VTE Factor V Leiden Prothrombin [id number] Lupus anticoagulant Anticardiolipin antibodies Elevated serum homocysteine Heparin-induced thrombocytopenia Other congenital or acquired thrombophilia Stroke (< 1 month) Elective arthroplasty Hip, pelvis, or leg fracture Acute spinal cord injury (< 1 month) Prophylaxis Regimen Total Risk Factor Score Risk Level Prophylaxis Regimen 0-1 Low Early ambulation 2 Moderate Order ONE of the following: *Sequential Compression Device (SCD) *Heparin 5000 units SQ BID 3-4 Higher Order ONE of the following medications: *Heparin 5000 units SQ TID *Enoxaparin/Lovenox 40 mg SQ daily (WT < 150 kg, CrCl > 30 mL/min) *Enoxaparin/Lovenox 30 mg SQ daily (WT < 150 kg, CrCl > 10-29 mL/min) *Enoxaparin/Lovenox 30 mg SQ BID (WT < 150 kg, CrCl > 30 mL/min) AND/OR *Sequential Compression Device (SCD) 5 or more Highest Order ONE of the following medications: *Heparin 5000 units SQ TID (Preferred with Epidurals) *Enoxaparin/Lovenox 40 mg SQ daily (WT < 150 kg, CrCl > 30 mL/min) *Enoxaparin/Lovenox 30 mg SQ daily (WT < 150 kg, CrCl > 10-29 mL/min) *Enoxaparin/Lovenox 30 mg SQ BID (WT < 150 kg, CrCl > 30 mL/min) AND *Sequential Compression Device (SCD) Assessment and Plan Assessment and Plan 86 years old female presented with Acute anemia due to GI bleed GI bleed mostly upper GIB Chronic iron deficiency anemia Hyperlipidemia Leg swelling rule out cardiomyopathy DVT prophylaxis with SCD Plan: Admit to inpatient for blood transfusion and GI/anemia workup FOBT checked and positive Consul GI for EGD and colonoscopy Recent EGD in May 2017 noted 2 units of red blood cells has been transfused Monitor H&H Iv Protonix SCD No chemical DVT prophylaxis Discussed Condition With Patient and her son and ED physician Physician Certification 2 Midnight Certification Type: Admission for Inpatient Services Order for Inpatient Services The services are ordered in accordance with Medicare regulations or non- Medicare payer requirements, as applicable. In the case of services not specified as inpatient-only, they are appropriately provided as inpatient services in accordance with the 2-midnight benchmark. Estimated LOS (days): 2 days is the estimated time the patient will need to remain in the hospital, assuming treatment plan goals are met and no additional complications. Post-Hospital Plan: Not yet determined Tra Sevilla MD Jul 24, 2017 19:38
[2017-07-24] MEDS ORDERED: PANTOPRAZOLE SOD 40 MG DELAYED RELEASE TAB PO SCH (21:00)
[2017-07-24] MEDS ORDERED: LACTATED RINGER'S 1000 ML IV PRN (23:45)
[2017-07-25] VITALS (8 sets, daily range): BP systolic 107–139; BP diastolic 53–63; PULSE 70–96; RESP 16–19; TEMP 95.9–98.2; O2SAT 91–99
[2017-07-25] MEDS: SODIUM CHLOR 0.9% 1000 ML INJ 1,000 ML IV SCH ×3 (02:00→22:00)
[2017-07-25] MEDS: PANTOPRAZOLE SODIUM 40 MG VIAL IV PUSH SCH ×2 (03:09→15:32)
[2017-07-25 03:40] LABS: HEMATOCRIT 25.3 % (35.0-46.0); HEMOGLOBIN 8.3 GM/DL (11.6-15.3)
[2017-07-25] MEDS ORDERED: PNEUMOCOCCAL POLYVALENT INJ 25 MCG/0.5 ML SYR IM ONE (10:00)
[2017-07-25] MEDS ORDERED: INFLUENZA VIRUS VACCINE (QUADRIVALENT) 0.5 ML SYR IM ONE (10:00)
[2017-07-25 10:02] LABS: HEMATOCRIT 24.4 % (35.0-46.0); HEMOGLOBIN 8.1 GM/DL (11.6-15.3); MEAN CELL VOLUME 90.2 FL (80.0-100.0); MEAN CORPUSCULAR HEMOGLOBIN 30.1 PG (27.0-34.0); MEAN CORPUSCULAR HGB CONC 33.4 % (32.0-36.0); MEAN PLATELET VOLUME 7.6 FL (7.0-11.0); PLATELET COUNT 325 TH/MM3 (150-450); RED CELL DISTRIBUTION WIDTH 22.9 % (11.6-17.2); WHITE BLOOD COUNT 12.2 TH/MM3 (4.0-11.0)
[2017-07-25] MEDS ORDERED: LIDOCAINE HCL 1% PF 5 ML SYRINGE OTHER ONE (12:00)
[2017-07-25] MEDS ORDERED: PROPOFOL 200 MG/20 ML AMP IV ONE (12:00)
--- NOTE | 2017-07-25 14:13 | GIPROC ---
[facility] [address] [facility]. [facility], [address] EGD PROCEDURE REPORT EXAM DATE: 07/25/2017 PATIENT NAME: Debby José MR #: [id number] BIRTHDATE: 1930 ATTENDING: Adelia Prajapati MD ORDER #: [id number] PSYCHIATRIC CNS: Zehra Crenshaw and Chelsey Cali STATUS: inpatient INDICATIONS: The patient is a 86 yr old female here for an EGD due to anemia and melena PROCEDURE PERFORMED: EGD w/ biopsy MEDICATIONS: None and Per Anesthesia. TOPICAL ANESTHETIC: none CONSENT: The patient understands the risks and benefits of the procedure and understands that these risks include, but are not limited to: sedation, allergic reaction, infection, perforation and/or bleeding. Alternative means of evaluation and treatment include, among others: physical exam, x-rays, and/or surgical intervention. The patient elects to proceed with this endoscopic procedure. medical equipment was checked for proper function. Hand hygiene and appropriate measures for infection prevention was taken. After the risks, benefits and alternatives of the procedure were thoroughly explained, Informed consent was verified, confirmed and timeout was successfully executed by the treatment team. The patient was anesthetized with topical anesthesia and the EC-[id number] (Pedi C) endoscope was introduced through the mouth and advanced to the second portion of the duodenum. Retroflexed views revealed a hiatal hernia and Retroflexion was performed The gastroscope was then slowly withdrawn and removed. 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 The length of circumferential Galdamez's was 4cm (Flint C4). Multiple biopsies were performed using cold forceps. Sample sent for histology. STOMACH: The stomach otherwise appeared normal. DUODENUM: A soft large nodule was located in the duodenal bulb. Multiple biopsies were performed using cold forceps. Sample sent for histology. The duodenal mucosa appeared normal in the 2nd part of the duodenum. ADVERSE EVENTS: There were no complications. IMPRESSIONS: 1. 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 The stomach otherwise appeared normal 3. A large nodule was located in the duodenal bulb; multiple biopsies were performed 4. Normal duodenal mucosa in the 2nd part of the duodenum 5. Retroflexed views revealed a hiatal hernia RECOMMENDATIONS: Await biopsy results. Biopsy results will not be ready for 7-10 days. If you don't hear from us in two weeks, call our office for biopsy results. PATIENT CONDITION: stable DISPOSITION: Observation REPEAT EXAM: Return as needed for EGD pending biopsy results Adelia Prjaapati MD eSigned: Adelia Prajapati MD 07/25/2017 2:12 PM cc: PATIENT NAME: Debby José MR#: [id number]
[2017-07-25] MEDS ORDERED: DO NOT ADM ANY ANTICOAGULANT DRUGS PRN (14:20)
--- NOTE | 2017-07-25 14:24 | EKG ---
Date Performed: 07/25/2017 Time Performed: 05:23:46 PTAGE: 86 years EKG: Sinus rhythm with PVC(s) with 1st degree A-V block Possible septal infarct - age undetermined Inferior/lateral ST -T changes may be due to myocardial ischemia Abnormal ECG NO PREVIOUS TRACING DOCTOR: Arnav Alfaro Interpretating Date/Time 07/25/2017 14:22:57
--- NOTE | 2017-07-25 16:11 | HHI.PR ---
Subjective Remarks Seen and examined earlier today going for EGD, resting in bed, no nausea no abdominal pain Objective Vitals Vital Signs Date Time Temp Pulse Resp B/P (MAP) Pulse Ox O2 Delivery O2 Flow Rate FiO2 07/25/17 16:00 98.2 76 19 139/63 (88) 91 07/25/17 14:45 97.8 72 20 167/76 (106) 95 Nasal Cannula 2 07/25/17 14:30 85 19 138/56 (83) 96 Nasal Cannula 2 07/25/17 14:20 97.8 84 17 150/65 (93) 96 Nasal Cannula 2 07/25/17 13:20 96 Nasal Cannula 2.00 07/25/17 12:43 Nasal Cannula 2 07/25/17 12:00 96.2 96 17 132/60 (84) 96 07/25/17 08:00 95.9 73 18 126/61 (82) 96 07/25/17 04:32 96.4 78 16 107/54 (71) 94 07/25/17 00:00 96.7 70 16 133/58 (83) 99 07/24/17 22:51 96.9 18 89/54 98 07/24/17 20:02 99 Nasal Cannula 2.00 07/24/17 20:00 97.3 82 16 105/65 (78) 95 07/24/17 17:32 97.2 90 17 134/60 (84) 95 07/24/17 16:58 97.8 88 17 120/59 100 07/24/17 16:30 97.9 84 16 117/68 (84) 100 Nasal Cannula 2.00 I/O 07/24/17 07/24/17 07/24/17 07/25/17 07/25/17 07/25/17 07:00 15:00 23:00 07:00 15:00 23:00 Intake Total 414 ml 300 ml 300 ml Output Total 0 ml Balance 414 ml 300 ml 300 ml Intake Oral 0 ml IV Total 100 ml Packed Cells 314 ml 300 ml Other 300 ml Output Urine Total 0 ml # Voids 10 # Bowel Movements 0 Result Diagram: 07/25/17 0913 07/24/17 1945 Objective Remarks GENERAL: This is a well-nourished, well-developed patient, in no apparent distress. SKIN: No rashes, warm and dry HEAD: Atraumatic. Normocephalic. EYES: Pupils equal round and reactive. Extraocular motions intact. No scleral icterus. ENT: Nose without bleeding, or drainage, Airway patent. NECK: Trachea midline. Supple CARDIOVASCULAR: Regular rate and rhythm without murmurs, gallops, or rubs. RESPIRATORY: Fair air entry bilaterally. No wheezes, rales, or rhonchi. GASTROINTESTINAL: Abdomen soft, non-tender, nondistended. Positive bowel sounds MUSCULOSKELETAL: Extremities without clubbing, cyanosis, or edema. Pedal pulses appreciated NEUROLOGICAL: Awake and alert. Moves all extremity. Normal speech.no focal neurological deficit A/P Assessment and Plan 86 years old female presented with Acute anemia due to GI bleed GI bleed mostly upper GIB Chronic iron deficiency anemia Hyperlipidemia Leg swelling rule out cardiomyopathy DVT prophylaxis with SCD Plan: Admit to inpatient for blood transfusion and GI/anemia workup FOBT checked and positive Appreciate GI consultation patient going for EGD and colonoscopy today Recent EGD in May 2017 noted 2 units of red blood cells has been transfused Monitor H&H Iv Protonix SCD No chemical DVT prophylaxis Tra Sevilla MD Jul 25, 2017 16:11
[2017-07-25 18:03] LABS: CALCIUM 8.4 MG/DL (8.5-10.1); CREATININE 0.75 MG/DL (0.50-1.00); MAGNESIUM 1.6 MG/DL (1.5-2.5)
[2017-07-26] VITALS: BP 148/63; PULSE 84; RESP 20; TEMP 98.6; O2SAT 98
[2017-07-26] MEDS: PANTOPRAZOLE SODIUM 40 MG VIAL IV PUSH SCH ×2 (02:45→15:30)
[2017-07-26 08:00] VITALS: BP 181/86; PULSE 92; RESP 21; TEMP 97.4; O2SAT 94
[2017-07-26] MEDS: SODIUM CHLOR 0.9% 1000 ML INJ 1,000 ML IV SCH ×3 (08:00→23:43)
[2017-07-26 12:00] VITALS: BP 130/60; PULSE 95; RESP 18; TEMP 96.3; O2SAT 97
--- NOTE | 2017-07-26 13:08 | HHI.PR ---
Subjective Remarks Patient very pleasant, some at the bedside as well as the nurse She is hard hearing, she did have an EGD and colonoscopy which showed esophagitis and soft nodular duodenal bulb status post biopsy Discussed with the nurse GI still following, She seems to be or historian when it comes to answering question She looks comfortable Objective Vitals Vital Signs Date Time Temp Pulse Resp B/P (MAP) Pulse Ox O2 Delivery O2 Flow Rate FiO2 07/26/17 12:00 96.3 95 18 130/60 (83) 97 07/26/17 08:00 97.4 92 21 181/86 (117) 94 07/26/17 00:00 98.6 84 20 148/63 (91) 98 07/25/17 23:00 97 Nasal Cannula 2.00 07/25/17 20:00 97.7 74 17 116/53 (74) 96 07/25/17 17:34 91 Nasal Cannula 2.00 07/25/17 16:00 98.2 76 19 139/63 (88) 91 07/25/17 14:45 97.8 72 20 167/76 (106) 95 Nasal Cannula 2 07/25/17 14:30 85 19 138/56 (83) 96 Nasal Cannula 2 07/25/17 14:20 97.8 84 17 150/65 (93) 96 Nasal Cannula 2 07/25/17 13:20 96 Nasal Cannula 2.00 I/O 07/25/17 07/25/17 07/25/17 07/26/17 07/26/17 07/26/17 07:00 15:00 23:00 07:00 15:00 23:00 Intake Total 300 ml 300 ml 475 ml 120 ml Output Total 400 ml Balance 300 ml 300 ml 475 ml -280 ml Intake Oral 475 ml 120 ml Packed Cells 300 ml Other 300 ml Output Urine Total 400 ml # Voids 10 6 6 # Bowel Movements 1 1 Result Diagram: 07/25/17 0913 07/25/17 1645 Objective Remarks GENERAL: This is a well-nourished, well-developed patient, in no apparent distress. SKIN: No rashes, warm and dry HEAD: Atraumatic. Normocephalic. EYES: Pupils equal round and reactive. Extraocular motions intact. No scleral icterus. ENT: Nose without bleeding, or drainage, Airway patent. NECK: Trachea midline. Supple CARDIOVASCULAR: Regular rate and rhythm without murmurs, gallops, or rubs. RESPIRATORY: Fair air entry bilaterally. No wheezes, rales, or rhonchi. GASTROINTESTINAL: Abdomen soft, non-tender, nondistended. Positive bowel sounds MUSCULOSKELETAL: Extremities without clubbing, cyanosis, or edema. Pedal pulses appreciated NEUROLOGICAL: Awake and alert. Moves all extremity. Normal speech.no focal neurological deficit A/P Assessment and Plan 86 years old female presented with Acute anemia due to GI bleed GI bleed mostly upper GIB Chronic iron deficiency anemia Hyperlipidemia Electrolyte imbalance LEONIE improved creatinine back to normal 0.95 Hyperkalemia Leg swelling rule out cardiomyopathy DVT prophylaxis with SCD Plan: Admit to inpatient for blood transfusion and GI/anemia workup FOBT checked and positive Appreciate GI consultation status post EGD and colonoscopy 07/25> esophagitis, nodules duodenal bulb status post biopsy Recent EGD in May 2017 noted 2 units of red blood cells has been transfused hemoglobin stable at 8.1 Monitor H&H Iv Protonix SCD No chemical DVT prophylaxis Discharge Planning When cleared by Tra Davison MD Jul 26, 2017 13:08
--- NOTE | 2017-07-26 14:48 | HHI.GIFU ---
Subjective Remarks Pt resting in bed, in no apparent distress. Son at bedside. She denies nausea , vomiting, abdominal pain. Reports no BM but states she has not had anything to eat. She is requesting to go home. (Rhea Machado) Objective Vitals I&O Vital Signs Date Time Temp Pulse Resp B/P (MAP) Pulse Ox O2 Delivery O2 Flow Rate FiO2 07/26/17 12:00 96.3 95 18 130/60 (83) 97 07/26/17 08:00 97.4 92 21 181/86 (117) 94 07/26/17 00:00 98.6 84 20 148/63 (91) 98 07/25/17 23:00 97 Nasal Cannula 2.00 07/25/17 20:00 97.7 74 17 116/53 (74) 96 07/25/17 17:34 91 Nasal Cannula 2.00 07/25/17 16:00 98.2 76 19 139/63 (88) 91 07/25/17 14:45 97.8 72 20 167/76 (106) 95 Nasal Cannula 2 I/O 07/25/17 07/25/17 07/25/17 07/26/17 07/26/17 07/26/17 07:00 15:00 23:00 07:00 15:00 23:00 Intake Total 300 ml 300 ml 475 ml 120 ml Output Total 400 ml Balance 300 ml 300 ml 475 ml -280 ml Intake Oral 475 ml 120 ml Packed Cells 300 ml Other 300 ml Output Urine Total 400 ml # Voids 10 6 6 # Bowel Movements 1 1 Laboratory Laboratory Tests Test 07/25/17 16:45 Blood Urea Nitrogen 16 Creatinine 0.75 Random Glucose 121 Calcium Level 8.4 Phosphorus Level 3.0 Magnesium Level 1.6 Sodium Level 139 Potassium Level 3.2 Chloride Level 103 Carbon Dioxide Level 26.0 Anion Gap 10 Estimat Glomerular Filtration Rate 73 Imaging Last Impressions Chest X-Ray 07/24/17 1250 Signed Impressions: Service Date/Time: Monday, July 24, 2017 13:06 - CONCLUSION: Hypoaeration with interstitial prominence characteristic of restrictive lung disease. No evidence of acute air space disease or acute congestion. Bridger Sepulveda MD Head CT 07/24/17 0000 Signed Impressions: Service Date/Time: Monday, July 24, 2017 14:36 - CONCLUSION: No acute intracranial findings Shayan Simon MD Physical Exam HEENT: Normocephalic; atraumatic CHEST: Even/unlabored CARDIAC: RRR ABDOMEN: Obese, soft, nontender, bowel sounds active x 4. EXTREMITIES: BLE edema SKIN: No rash; no jaundice. DIRECTOR OF TECHNOLOGY: No focal deficits; alert and oriented times three. (Rhea Machado) Assessment and Plan Assessment: (1) Upper GI bleed ICD Codes: K92.2 - Gastrointestinal hemorrhage, unspecified (2) GI bleeding ICD Codes: K92.2 - Gastrointestinal hemorrhage, unspecified (3) Anemia ICD Codes: D64.9 - Anemia, unspecified (4) Iron deficiency anemia ICD Codes: D50.9 - Iron deficiency anemia, unspecified (5) Symptomatic anemia ICD Codes: D64.9 - Anemia, unspecified Plan Assessment GI bleed- H/H on admission was 6.1/19.1. She is now S/P 2 U PRBC on Jul 24. Labs were last checked yesterday morning. 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 The stomach was otherwise normal. A large nodule was located in the duodenal bulb, multiple biopsies performed. Normal duodenal mucosa in the 2nd part of the duodenum. Hiatal hernia. Biopsy pending. Plan - Repeat CBC in AM - Advance diet - If H/H remains stable and pt tolerating diet then ok to DC home from GI standpoint - Follow up at [facility] in one week for biopsy results Pt has been seen and examined by myself and Dr. Prajapati and this note is written on his behalf (Rhea Machado) Physician Comments Agree with above assessment and plan, will check biopsies results. (Adelia Prajapati MD) Rhea Machado Jul 26, 2017 14:48 Adelia Prajapati MD Jul 26, 2017 15:04
[2017-07-26 16:00] VITALS: BP 133/62; PULSE 88; RESP 17; TEMP 97.4; O2SAT 95
[2017-07-26 20:00] VITALS: BP 142/84; PULSE 86; RESP 17; TEMP 96.4; O2SAT 91
[2017-07-26 22:03] VITALS: O2SAT 95
[2017-07-27] VITALS: BP 174/74; PULSE 82; RESP 17; TEMP 97.1; O2SAT 91
[2017-07-27 02:00] VITALS: BP_SYST 178; BP_DIAS 70; BP_DIAS 80
[2017-07-27] MEDS ORDERED: NIFEdipine 30 MG SUSTAINED RELEASE TAB PO ONE (02:30)
[2017-07-27] MEDS: PANTOPRAZOLE SODIUM 40 MG VIAL IV PUSH SCH (02:48)
[2017-07-27 04:00] VITALS: BP 161/75; PULSE 87; RESP 17; TEMP 97.7; O2SAT 92
[2017-07-27 08:00] VITALS: BP 140/67; PULSE 83; RESP 17; TEMP 97.9; O2SAT 94
[2017-07-27 08:14] LABS: AUTOMATED NEUTROPHIL # 7.5 TH/MM3 (1.8-7.7); BASOPHIL % 0.3 % (0.0-2.0); EOSINOPHIL # 0.5 TH/MM3 (0-0.4); HEMATOCRIT 28.3 % (35.0-46.0); HEMOGLOBIN 9.6 GM/DL (11.6-15.3); LYMPH % 8.8 % (9.0-44.0); LYMPHOCYTE # 0.9 TH/MM3 (1.0-4.8); MEAN CELL VOLUME 90.2 FL (80.0-100.0); MEAN CORPUSCULAR HEMOGLOBIN 30.5 PG (27.0-34.0); MEAN CORPUSCULAR HGB CONC 33.8 % (32.0-36.0); MEAN PLATELET VOLUME 7.5 FL (7.0-11.0); MONO % 9.8 % (0.0-8.0); NEUT % 76.1 % (16.0-70.0); PLATELET COUNT 388 TH/MM3 (150-450); RED BLOOD COUNT 3.14 MIL/MM3 (4.00-5.30); WHITE BLOOD COUNT 9.9 TH/MM3 (4.0-11.0)
--- NOTE | 2017-07-27 09:43 | HHI.DCPOC ---
Discharge Care Plan Diagnosis: (1) Duodenal nodule (2) Galdamez esophagus (3) Esophagitis (4) Anemia Goals to Promote Your Health * To prevent worsening of your condition and complications * To maintain your health at the optimal level Directions to Meet Your Goals Take your medications as prescribed Follow your dietary instruction Follow activity as directed Keep your appointments as scheduled Take your immunizations and boosters as scheduled If your symptoms worsen call your PCP, if no PCP go to Urgent Care Center or Emergency Room Smoking is Dangerous to Your Health. Avoid second hand smoke Call the 24-hour hour crisis hotline for domestic abuse at Lilo Fagan MD Jul 27, 2017 09:43
--- NOTE | 2017-07-27 09:47 | HHI.DS ---
Discharge Summary Admission Date Jul 24, 2017 at 15:42 Discharge Date: Jul 27, 2017 Admitting Diagnosis anemia, GI bleed, hypokalemia (1) GI bleeding ICD Code: K92.2 - Gastrointestinal hemorrhage, unspecified Diagnosis: Principal (2) Duodenal nodule ICD Code: K31.89 - Other diseases of stomach and duodenum Diagnosis: Principal (3) Galdamez esophagus ICD Code: K22.70 - Galdamez's esophagus without dysplasia Diagnosis: Principal (4) Anemia ICD Code: D64.9 - Anemia, unspecified Diagnosis: Principal (5) Esophagitis ICD Code: K20.9 - Esophagitis, unspecified Diagnosis: Principal Procedures EGD showing duodenal bulb and esophagitis Brief History - From Admission 86 years old female with history of coronary artery disease arthritis hyperlipidemia and CHF and chronic anemia, who recently had EGD in May 2017 for her anemia, came back prior by her son due to feeling extremely weak, slightly change in mental status and confusion. She wasn't able to move out of her chair. In ED she was found to have hemoglobin been of 6.5, no hematemesis or hematochezia however to PT was positive in ED, she reported some chest discomfort yesterday, no nausea or vomiting no diarrhea no fever or chills CBC/BMP: 07/27/17 0735 07/25/17 1645 Significant Findings Laboratory Tests Test 07/24/17 12:55 07/24/17 13:09 07/24/17 13:45 07/24/17 13:52 White Blood Count 14.1 TH/MM3 (4.0-11.0) Red Blood Count 2.02 MIL/MM3 (4.00-5.30) Hemoglobin 6.1 GM/DL (11.6-15.3) Hematocrit 19.1 % (35.0-46.0) Red Cell Distribution Width 23.6 % (11.6-17.2) Neutrophils (%) (Auto) 81.8 % (16.0-70.0) Lymphocytes (%) (Auto) 7.9 % (9.0-44.0) Neutrophils # (Auto) 11.5 TH/MM3 (1.8-7.7) Eosinophils # (Auto) 0.5 TH/MM3 (0-0.4) Neutrophils % (Manual) 72 % (16-70) Neutrophils # (Manual) 11.6 TH/MM3 (1.8-7.7) Myelocytes 4 % (0-0) Nucleated Red Blood Cells 1 /100 WBC (0-0) Polychromasia 4.1 % (0.0-1.9) Urine Leukocyte Esterase SMALL (NEG) Blood Urea Nitrogen 34 MG/DL (7-18) Creatinine 1.14 MG/DL (0.50-1.00) Random Glucose 110 MG/DL (74-106) Total Protein 5.7 GM/DL (6.4-8.2) Albumin 2.8 GM/DL (3.4-5.0) Calcium Level 8.1 MG/DL (8.5-10.1) Potassium Level 2.7 MEQ/L (3.5-5.1) Estimat Glomerular Filtration Rate 45 ML/MIN (>89) Activated Partial Thromboplast Time 17.8 SEC (24.3-30.1) Test 07/25/17 03:19 07/25/17 09:13 07/25/17 16:45 07/27/17 07:35 Hemoglobin 8.3 GM/DL (11.6-15.3) 8.1 GM/DL (11.6-15.3) 9.6 GM/DL (11.6-15.3) Hematocrit 25.3 % (35.0-46.0) 24.4 % (35.0-46.0) 28.3 % (35.0-46.0) White Blood Count 12.2 TH/MM3 (4.0-11.0) Red Blood Count 2.70 MIL/MM3 (4.00-5.30) 3.14 MIL/MM3 (4.00-5.30) Red Cell Distribution Width 22.9 % (11.6-17.2) 23.0 % (11.6-17.2) Random Glucose 121 MG/DL (74-106) Calcium Level 8.4 MG/DL (8.5-10.1) Potassium Level 3.2 MEQ/L (3.5-5.1) Estimat Glomerular Filtration Rate 73 ML/MIN (>89) Neutrophils (%) (Auto) 76.1 % (16.0-70.0) Lymphocytes (%) (Auto) 8.8 % (9.0-44.0) Monocytes (%) (Auto) 9.8 % (0.0-8.0) Eosinophils (%) (Auto) 5.0 % (0.0-4.0) Lymphocytes # (Auto) 0.9 TH/MM3 (1.0-4.8) Monocytes # (Auto) 1.0 TH/MM3 (0-0.9) Eosinophils # (Auto) 0.5 TH/MM3 (0-0.4) Imaging Last Impressions Chest X-Ray 07/24/17 1250 Signed Impressions: Service Date/Time: Monday, July 24, 2017 13:06 - CONCLUSION: Hypoaeration with interstitial prominence characteristic of restrictive lung disease. No evidence of acute air space disease or acute congestion. Bridger Sepulveda MD Head CT 07/24/17 0000 Signed Impressions: Service Date/Time: Monday, July 24, 2017 14:36 - CONCLUSION: No acute intracranial findings Shayan Simon MD PE at Discharge GENERAL: This is a well-nourished, well-developed patient, in no apparent distress. SKIN: No rashes, warm and dry HEAD: Atraumatic. Normocephalic. EYES: Pupils equal round and reactive. Extraocular motions intact. No scleral icterus. ENT: Nose without bleeding, or drainage, Airway patent. NECK: Trachea midline. Supple CARDIOVASCULAR: Regular rate and rhythm without murmurs, gallops, or rubs. RESPIRATORY: Fair air entry bilaterally. No wheezes, rales, or rhonchi. GASTROINTESTINAL: Abdomen soft, non-tender, nondistended. Positive bowel sounds MUSCULOSKELETAL: Extremities without clubbing, cyanosis, or edema. Pedal pulses appreciated NEUROLOGICAL: Awake and alert. Moves all extremity. Normal speech.no focal neurological deficit Pt update on day of discharge Kassandra GI bleeding Patient denies any GI bleed. She denies any chest pain, palpitation, lightheadedness dizziness. She is very anxious to go home. Hospital Course 86 years old female presented with with acute anemia and GI bleed. Patient was placed on Protonix IV and GI was consulted. She also had 2 units of packed red blood cells that responded quickly to transfusion and her H&H was stable. She did not have any more GI bleed during her hospital course. She had endoscopy done which showed gastritis and duodenal bulb and had them biopsied. Patient was discharged in stable condition and was tolerating oral intake. Pt Condition on Discharge: Stable Discharge Disposition: Discharge Home Discharge Time: <= 30 minutes Discharge Instructions DIET: Follow Instructions for: Heart Healthy Diet Activities you can perform: Regular-No Restrictions Follow up Referrals: Appointment for Follow Up Gastroenterology - 1 Week with Anne Gilliland MD PCP Follow-up - 1 Week PCP Follow-up Continued Medications: Allopurinol (Allopurinol) 100 Mg Tab 100 MG PO DAILY for Gout, #30 TAB 0 Refills Cholecalciferol (D3 Maximum Strength) 5,000 Unit Cap 5000 UNITS PO DAILY for Nutritional Supplement, #30 CAP 0 Refills Cyanocobalamin (B12) 1,000 Mcg Tab Ferrous Sulfate (Ferosul) 325 Mg (65 Mg Iron) Tablet 325 MG PO BID for ANEMIA for 30 Days, #60 TAB Hydrochlorothiazide (Hydrochlorothiazide) 25 Mg Tab 25 MG PO DAILY, #30 TAB 0 Refills Pantoprazole (Pantoprazole) 40 Mg Tab 40 MG PO DAILY for Reflux for 30 Days, #30 TAB 0 Refills Pravastatin (Pravastatin) 80 Mg Tab 20 MG PO HS for Cholesterol Management, #30 TAB 0 Refills Lilo Fagan MD Jul 27, 2017 09:47
[2017-07-27 09:52] VITALS: O2SAT 94
== END 2017-07-27 11:06 | disposition home or self-care (01) ==
LOC: NEPC 12:38 → NEDA 15:42 → INTOOBSV 15:42 → N07B 17:20
PROVIDERS: ADMIT Family Medicine; ATTEND Family Medicine
DX: K29.70 Gastritis, unspecified, without bleeding (principal); K20.9 Esophagitis, unspecified; K31.89 Other diseases of stomach and duodenum; K22.70 Barrett's esophagus without dysplasia; K44.9 Diaphragmatic hernia without obstruction or gangrene; D50.9 Iron deficiency anemia, unspecified; E78.5 Hyperlipidemia, unspecified; E87.5 Hyperkalemia; E87.6 Hypokalemia; N17.9 Acute kidney failure, unspecified; I50.9 Heart failure, unspecified; I11.0 Hypertensive heart disease with heart failure; I25.10 Atherosclerotic heart disease of native coronary artery without angina pectoris; F03.90 Unspecified dementia, unspecified severity, without behavioral disturbance, psychotic disturbance, mood disturbance, and anxiety; J98.4 Other disorders of lung; E66.9 Obesity, unspecified; Z68.39 Body mass index [BMI] 39.0-39.9, adult; Z87.891 Personal history of nicotine dependence; Z90.710 Acquired absence of both cervix and uterus; Z23 Encounter for immunization
CPT/HCPCS: 00740; 36430; 43239; 70450; 71010; 80048; 80053; 81001; 83735; 84100; 85007; 85014; 85018; 85025; 85027; 85610; 85730; 86850; 86900; 86901; 86920; 88305; 90732; 93005; 96365; 96366; 96372; 96375; 96376; 99285; C9113; G0378; J3480; J7030; J7050; P9016; P9612; Q2038; 90686

== ENCOUNTER 2017-11-06 01:24 | Inpatient (IN) | payer OTHER, MEDICARE ==
[~2017-11-06] VITALS: Ht 160 cm; Wt 88.0 kg
[~2017-11-06 01:24] MED LIST changes: +ALLO100T PO; +CYAN1TAB24; +D 50CAP2 PO; -FURO20TA PO; +HYDR25TA5 PO; -VITA500T2 PO
[2017-11-06 01:45] VITALS: BP 138/67; PULSE 83; RESP 18; TEMP 98.6; O2SAT 94
[2017-11-06] MEDS ORDERED: SODIUM CHLORIDE 0.9% FLUSH 10 ML FLUSH IV FLUSH PRN ×2 (02:00→05:15)
--- NOTE | 2017-11-06 02:06 | RADRPT ---
EXAM DATE/TIME: 11/06/2017 01:53 [facility] COMPARISON: CHEST SINGLE AP, July 24, 2017, 13:06. INDICATIONS : Short of breath. MEDICAL HISTORY : Hypercholesterolemia. Hypertension. Congestive heart failure. COPD. SURGICAL HISTORY : None. ENCOUNTER: Initial ACUITY: 1 day PAIN SCORE: 0/10 LOCATION: Bilateral chest FINDINGS: A single view of the chest demonstrates a diminished lung volumes with patchy opacities. Heart normal in size. Osseous structures are intact. CONCLUSION: Bilateral patchy infiltrates. Huan Houston MD on November 06, 2017 at 2:04 Board Certified Radiologist. This report was verified electronically.
[2017-11-06 02:25] LABS: AUTOMATED NEUTROPHIL # 5.5 TH/MM3 (1.8-7.7); BASOPHIL # 0.1 TH/MM3 (0-0.2); BASOPHIL % 1.1 % (0.0-2.0); EOSINOPHIL # 0.7 TH/MM3 (0-0.4); EOSINOPHIL % 7.5 % (0.0-4.0); HEMATOCRIT 44.5 % (35.0-46.0); HEMOGLOBIN 14.9 GM/DL (11.6-15.3); LYMPH % 18.1 % (9.0-44.0); LYMPHOCYTE # 1.6 TH/MM3 (1.0-4.8); MEAN CELL VOLUME 83.3 FL (80.0-100.0); MEAN CORPUSCULAR HEMOGLOBIN 27.9 PG (27.0-34.0); MEAN CORPUSCULAR HGB CONC 33.5 % (32.0-36.0); MEAN PLATELET VOLUME 7.5 FL (7.0-11.0); MONO % 10.3 % (0.0-8.0); MONOCYTE # 0.9 TH/MM3 (0-0.9); PLATELET COUNT 384 TH/MM3 (150-450); RED BLOOD COUNT 5.35 MIL/MM3 (4.00-5.30); RED CELL DISTRIBUTION WIDTH 15.8 % (11.6-17.2); WHITE BLOOD COUNT 8.7 TH/MM3 (4.0-11.0)
[2017-11-06] MEDS ORDERED: CYAN1TAB24 (02:31)
[2017-11-06] MEDS ORDERED: PRAV10TA PO (02:31)
[2017-11-06] MEDS ORDERED: FERR325T18 PO (02:31)
[2017-11-06] MEDS ORDERED: VITA200013 (02:31)
[2017-11-06] MEDS ORDERED: ALLO100T PO (02:31)
[2017-11-06] MEDS ORDERED: FURO20TA PO (02:31)
[2017-11-06] MEDS ORDERED: TRAM50TA PO (02:31)
[2017-11-06] MEDS ORDERED: TRAZ50TA12 PO (02:31)
[2017-11-06] MEDS ORDERED: FOLI800T PO (02:31)
[2017-11-06 02:46] LABS: PROTHROMBIN TIME - PATIENT 10.6 SEC (9.8-11.6)
[2017-11-06 02:58] LABS: ALBUMIN 3.4 GM/DL (3.4-5.0); ALT (GPT) 49 U/L (10-53); AST (GOT) 30 U/L (15-37); BICARBONATE 30.3 MEQ/L (21.0-32.0); BLOOD UREA NITROGEN 22 MG/DL (7-18); CALCIUM 8.9 MG/DL (8.5-10.1); CHLORIDE 103 MEQ/L (98-107); CREATININE 1.06 MG/DL (0.50-1.00); GLOMERULAR FILTRATION RATE 49 ML/MIN (>89); GLUCOSE,RANDOM 91 MG/DL (74-106); SODIUM (NA) 142 MEQ/L (136-145)
[2017-11-06 03:02] LABS: ALKALINE PHOSPHATASE 57 U/L (45-117); TOTAL BILIRUBIN ADULT 0.3 MG/DL (0.2-1.0); TOTAL PROTEIN 7.6 GM/DL (6.4-8.2); TROPONIN I LESS THAN 0.02 NG/ML (0.02-0.05)
[2017-11-06] MEDS ORDERED: SODIUM CHLORID 0.9% 500 ML INJ 500 ML IV ONE (03:30)
[2017-11-06] MEDS ORDERED: AZITHROMYCIN INJ 500 MG in SODIUM CHLOR 0.9% 250 ML INJ 250 ML IV ONE (03:45)
[2017-11-06] MEDS ORDERED: cefTRIAXone INJ 1,000 MG in SODIUM CHLORIDE 0.9% INJ 100 ML IV ONE (03:45)
[2017-11-06] MEDS ORDERED: SODIUM CHLOR 0.9% 1000 ML INJ 1,000 ML IV SCH (05:04)
--- NOTE | 2017-11-06 05:06 | PD ---
HPI Chief Complaint: Altered Mental Status Time Seen by Provider: 01:51 Travel History International Travel<30 days: No Contact w/Intl Traveler<30days: No Traveled to known affect area: No History of Present Illness HPI Patient is a 87 year old female who comes in due to AMS. Per son, she has been more altered for the past few days. He says that she started to complain of pain tonight, so he called 9--1. He says in the past when she has been like this she has either had a GI bleed or a UTI. Patient is confused and says she does not know why she is in the hospital. PFSH Past Medical History Anemia: Yes Arthritis: Yes Asthma: No Autoimmune Disease: No Blood Disorders: No Heart Rhythm Problems: No Cancer: No Cardiovascular Problems: Yes High Cholesterol: Yes Chemotherapy: No Chest Pain: No Congestive Heart Failure: Yes COPD: Yes Diabetes: No Patient Takes Glucophage: No Diminished Hearing: No Endocrine: No Gastrointestinal Disorders: Yes GERD: No Glaucoma: Yes Genitourinary: No Hiatal Hernia: No Hypertension: Yes Immune Disorder: No Kidney Stones: No Medical other: Yes (PVD, DEGENERATIVE DISC, AA, ) Musculoskeletal: No Neurologic: No Psychiatric: No Reproductive: No Respiratory: No Immunizations Current: Yes Radiation Therapy: No Renal Failure: Yes (STAGE 3) Sickle Cell Disease: No Sleep Apnea: No Thyroid Disease: No Ulcer: Yes (back in 60s) Tetanus Vaccination: Unknown Influenza Vaccination: Yes ?: Not Menopausal: Yes : 3 Para: 3 Past Surgical History Abdominal Surgery: No Arteriovenous Shunt: No Cardiac Surgery: No Ear Surgery: No Endocrine Surgery: No Eye Surgery: No Genitourinary Surgery: No Gynecologic Surgery: Yes (hysterectomy) Hysterectomy: Yes Insulin Pump: No Joint Replacement: No Oral Surgery: No Pacemaker: No Thoracic Surgery: No Other Surgery: Yes (GLACOMA) Social History Alcohol Use: No Tobacco Use: No Substance Use: No Allergies-Medications (Allergen,Severity, Reaction): Coded Allergies: No Known Allergies (Verified Allergy, Unknown, 11/06/17) Reported Meds & Prescriptions Reported Meds & Active Scripts Active Ferosul (Ferrous Sulfate) 325 Mg (65 Mg Iron) Tablet 325 Mg PO BID 30 Days Pantoprazole (Pantoprazole Sodium) 40 Mg Tab 40 Mg PO DAILY 30 Days Reported Allopurinol 100 Mg Tab 100 Mg PO DAILY Trazodone (Trazodone HCl) 50 Mg Tab 50 Mg PO HS PRN Pravastatin 10 Mg Tab 10 Mg PO HS Folic Acid 0.8 Mg Tab 1,000 Mcg PO DAILY Ferrous Sulfate 325 Mg (65 Mg Iron) Tablet 325 Mg PO DAILY B12 (Cyanocobalamin) 1,000 Mcg Tab Vitamin D (Cholecalciferol) 2,000 Unit Cap Tramadol (Tramadol HCl) 50 Mg Tab 50 Mg PO Q4H PRN Furosemide 20 Mg Tab 20 Mg PO DAILY D3 Maximum Strength (Cholecalciferol) 5,000 Unit Cap 5,000 Units PO DAILY B12 (Cyanocobalamin) 1,000 Mcg Tab Hydrochlorothiazide 25 Mg Tab 25 Mg PO DAILY Allopurinol 100 Mg Tab 100 Mg PO DAILY Pravastatin 80 Mg Tab 20 Mg PO HS Review of Systems ROS Limitations: Altered Mental Status Physical Exam Narrative GENERAL: Awake and alert, but confused. SKIN: Focused skin assessment warm/dry. No wounds or signs of infection. HEAD: Atraumatic. Normocephalic. EYES: Pupils equal and round. No scleral icterus. ENT: Mucous membranes pink and moist. NECK: Trachea midline. No JVD. CARDIOVASCULAR: Regular rate and rhythm. No murmur appreciated. RESPIRATORY: No accessory muscle use. Clear to auscultation. Breath sounds equal bilaterally. GASTROINTESTINAL: Abdomen soft, non-tender, nondistended. MUSCULOSKELETAL: No obvious deformities. No clubbing. No cyanosis. No edema. NEUROLOGICAL: Awake and alert. No obvious cranial nerve deficits. Motor grossly within normal limits. Normal speech. PSYCHIATRIC: Appropriate mood and affect; insight and judgment normal. Data Data Last Documented VS Vital Signs Date Time Temp Pulse Resp B/P (MAP) Pulse Ox O2 Delivery O2 Flow Rate FiO2 11/06/17 01:45 98.6 83 18 138/67 (90) 94 Orders Orders Complete Blood Count With Diff (11/06/17 01:51) Comprehensive Metabolic Panel (11/06/17 01:51) Creatine Kinase (Cpk) (11/06/17 01:51) Prothrombin Time / Inr (Pt) (11/06/17 01:51) Act Partial Throm Time (Ptt) (11/06/17 01:51) Troponin I (11/06/17 01:51) Urinalysis - C+S If Indicated (11/06/17 01:51) Lactic Acid Sepsis Protocol (11/06/17 01:51) Chest, Single Ap (11/06/17 01:51) Blood Glucose (11/06/17 01:51) Ecg Monitoring (11/06/17 01:51) Iv Access Insert/Monitor (11/06/17 01:51) Oximetry (11/06/17 01:51) Sodium Chloride 0.9% Flush (Ns Flush) (11/06/17 02:00) Electrocardiogram (11/06/17 ) Sodium Chlorid 0.9% 500 Ml Inj (Ns 500 M (11/06/17 03:30) Ceftriaxone Inj (Rocephin Inj) (11/06/17 03:45) Azithromycin Inj (Zithromax Inj) (11/06/17 03:45) Admit Order (Ed Use Only) (11/06/17 ) Labs Laboratory Tests Test 11/06/17 02:11 White Blood Count 8.7 TH/MM3 Red Blood Count 5.35 MIL/MM3 Hemoglobin 14.9 GM/DL Hematocrit 44.5 % Mean Corpuscular Volume 83.3 FL Mean Corpuscular Hemoglobin 27.9 PG Mean Corpuscular Hemoglobin Concent 33.5 % Red Cell Distribution Width 15.8 % Platelet Count 384 TH/MM3 Mean Platelet Volume 7.5 FL Neutrophils (%) (Auto) 63.0 % Lymphocytes (%) (Auto) 18.1 % Monocytes (%) (Auto) 10.3 % Eosinophils (%) (Auto) 7.5 % Basophils (%) (Auto) 1.1 % Neutrophils # (Auto) 5.5 TH/MM3 Lymphocytes # (Auto) 1.6 TH/MM3 Monocytes # (Auto) 0.9 TH/MM3 Eosinophils # (Auto) 0.7 TH/MM3 Basophils # (Auto) 0.1 TH/MM3 CBC Comment DIFF FINAL Differential Comment Prothrombin Time 10.6 SEC Prothromb Time International Ratio 1.0 RATIO Activated Partial Thromboplast Time 20.2 SEC Blood Urea Nitrogen 22 MG/DL Creatinine 1.06 MG/DL Random Glucose 91 MG/DL Total Protein 7.6 GM/DL Albumin 3.4 GM/DL Calcium Level 8.9 MG/DL Alkaline Phosphatase 57 U/L Aspartate Amino Transf (AST/SGOT) 30 U/L Alanine Aminotransferase (ALT/SGPT) 49 U/L Total Bilirubin 0.3 MG/DL Sodium Level 142 MEQ/L Potassium Level 3.7 MEQ/L Chloride Level 103 MEQ/L Carbon Dioxide Level 30.3 MEQ/L Anion Gap 9 MEQ/L Estimat Glomerular Filtration Rate 49 ML/MIN Lactic Acid Level 0.8 mmol/L Total Creatine Kinase 48 U/L Troponin I LESS THAN 0.02 NG/ML MDM Medical Decision Making Medical Screen Exam Complete: Yes Emergency Medical Condition: Yes Medical Record Reviewed: Yes Interpretation(s) ECG shows NSR at 80, 1st degree AV block Differential Diagnosis UTI vs electrolyte abnormalities vs pneumonia vs dehydration Narrative Course Patient is a 87 year old female who comes in due to AMS. Patient is confused, but no other acute abnormalities. IV established, labs sent. Labs show some mild dehydration. CXR shows bilateral pulmonary infiltrates. Given Rocephin and Azithromycin. Given IVF. Admitted for further management. Last 24 hours Impressions Chest X-Ray 11/06/17 0151 Signed Impressions: Service Date/Time: Monday, November 06, 2017 01:53 - CONCLUSION: Bilateral patchy infiltrates. Huan Houston MD Diagnosis Primary Impression: Pneumonia Qualified Codes: J18.1 - Lobar pneumonia, unspecified organism Additional Impression: Altered mental status Qualified Codes: R41.82 - Altered mental status, unspecified Admitting Information Admitting Physician Requests: Admit Kim Matthews MD Nov 06, 2017 05:06
[2017-11-06] MEDS ORDERED: MAGNESIUM HYDROXIDE SUSP 30 ML CUP PO PRN (05:15)
[2017-11-06] MEDS ORDERED: NALOXONE HCL 0.4 MG/ML AMP IV PUSH PRN (05:15)
[2017-11-06] MEDS ORDERED: BISACODYL 10 MG SUPP RECTAL PRN (05:15)
[2017-11-06] MEDS ORDERED: LACTULOSE SYRUP 20 GM/30 ML CUP PO PRN (05:15)
[2017-11-06] MEDS ORDERED: SENNOSIDES 8.6 MG TAB PO PRN (05:15)
[2017-11-06] MEDS ORDERED: ONDANSETRON HCL 4 MG/2 ML VIAL IVP PRN (05:15)
[2017-11-06] MEDS: HEPARIN SODIUM - SQ 10,000 UNITS/ML VIAL SQ SCH ×3 (06:10→21:25)
[2017-11-06 06:28] VITALS: BP 162/78; PULSE 83; RESP 20; O2SAT 97
[2017-11-06 06:50] LABS: BACTERIA, URINE OCC /hpf; BILIRUBIN, URINE NEG (NEG); BLOOD, URINE NEG (NEG); GLUCOSE,URINE NEG (NEG); HYALINE CAST, URINE 3 /lpf (RARE); KETONE, URINE NEG (NEG); MUCUS URINE FEW /lpf (OCC); NITRITE,URINE NEG (NEG); PH, URINE 5.5 (5.0-8.5); SQUAMOUS EPITHELIAL CELL URINE 25 /hpf (0-5); TRANSITIONAL EPI CELLS, URINE <1 /hpf; URINE COLOR YELLOW (YELLW/STRAW); URINE LEUKOCYTE ESTERASE LARGE (NEG)
--- NOTE | 2017-11-06 07:59 | EKG ---
Date Performed: 11/06/2017 Time Performed: 02:21:27 PTAGE: 87 years EKG: Sinus rhythm WITH FIRST DEGREE AV BLOCK MINIMAL VOLTAGE CRITERIA FOR LVH, CONSIDER NORMAL VARIANT NONSPECIFIC ST & T-WAVE ABNORMALITY ABNORMAL ECG Compared to prior electrocardiogram, [place] has rotated and ST T-wa ve changes are more marked. PREVIOUS TRACING : 07/25/2017 05.23 DOCTOR: Zane Oswald Interpretating Date/Time 11/06/2017 07:58:07
[2017-11-06] MEDS: DOCUSATE SODIUM 50 MG/SENNA 8.6 MG TAB PO SCH ×2 (09:00→21:17)
[2017-11-06] MEDS: SODIUM CHLORIDE 0.9% FLUSH 10 ML FLUSH IV FLUSH SCH ×2 (11:56→21:20)
--- NOTE | 2017-11-06 13:22 | HHI.HP ---
HPI Service [facility] Primary Care Physician Unknown Admission Diagnosis AMS, bilateral pneumonia Diagnoses: Chief Complaint: Altered mental status Travel History International Travel<30 Days: No Contact w/Intl Traveler <30 Da: No Traveled to Known Affected Are: No History of Present Illness Ms. José is a pleasant 87 year old female with a history of hyperlipidemia, hypertension who was brought to the emergency department on 11/06/2017 due to altered mental status. No family members at bedside at the time of this interview. Patient cannot give me a good history. However her ED records according to son patient has been somewhat confused and shows mental status change. At the time of this interview, patient could not tell me why she is in the hospital. She feels uncomfortable in her emergency room bed. She denies any cough, fever or chills. No changes in bowel or bladder habits. Review of Systems Except as stated in HPI: all other systems reviewed are Neg Past Family Social History Past Medical History Hypertension, hyperlipidemia Past Surgical History Hysterectomy Reported Medications Ferosul (Ferrous Sulfate) 325 Mg (65 Mg Iron) Tablet 325 Mg PO BID 30 Days Pantoprazole (Pantoprazole Sodium) 40 Mg Tab 40 Mg PO DAILY 30 Days Reported Allopurinol 100 Mg Tab 100 Mg PO DAILY Trazodone (Trazodone HCl) 50 Mg Tab 50 Mg PO HS PRN Pravastatin 10 Mg Tab 10 Mg PO HS Folic Acid 0.8 Mg Tab 1,000 Mcg PO DAILY Ferrous Sulfate 325 Mg (65 Mg Iron) Tablet 325 Mg PO DAILY B12 (Cyanocobalamin) 1,000 Mcg Tab Vitamin D (Cholecalciferol) 2,000 Unit Cap Tramadol (Tramadol HCl) 50 Mg Tab 50 Mg PO Q4H PRN Furosemide 20 Mg Tab 20 Mg PO DAILY D3 Maximum Strength (Cholecalciferol) 5,000 Unit Cap 5,000 Units PO DAILY B12 (Cyanocobalamin) 1,000 Mcg Tab Hydrochlorothiazide 25 Mg Tab 25 Mg PO DAILY Allopurinol 100 Mg Tab 100 Mg PO DAILY Pravastatin 80 Mg Tab 20 Mg PO HS Allergies: Coded Allergies: No Known Allergies (Verified Allergy, Unknown, 11/06/17) Family History Could not really obtain much family history. However, she seems to deny any family history of Alzheimer's or Parkinson's. Social History Denies using tobacco, alcohol, illicit drugs. Physical Exam Vital Signs Vital Signs Date Time Temp Pulse Resp B/P (MAP) Pulse Ox O2 Delivery O2 Flow Rate FiO2 11/06/17 06:28 83 20 162/78 (106) 97 Nasal Cannula 2.00 11/06/17 01:45 98.6 83 18 138/67 (90) 94 Physical Exam GENERAL: This is a well-nourished, well-developed patient, in no apparent distress. SKIN: No rashes, ecchymoses or lesions. Warm and dry. HEAD: Atraumatic. Normocephalic. No temporal or scalp tenderness. EYES: Pupils equal round and reactive. No injection or drainage. ENT: Nose without bleeding, purulent drainage or septal hematoma. Airway patent. NECK: Trachea midline. No lymphadenopathy. Supple, nontender, no meningeal signs. CARDIOVASCULAR: Regular rate and rhythm without murmurs, gallops, or rubs. No JVD. RESPIRATORY: Moderate air entry. Bibasilar crackles. GASTROINTESTINAL: Abdomen soft, non-tender, nondistended. No guarding. MUSCULOSKELETAL: Extremities without clubbing, cyanosis, or edema. NEUROLOGICAL: Awake and alert. Cranial nerves II through XII intact. No focal neurological deficits. Normal speech. Laboratory Laboratory Tests Test 11/06/17 02:11 11/06/17 05:27 White Blood Count 8.7 Red Blood Count 5.35 Hemoglobin 14.9 Hematocrit 44.5 Mean Corpuscular Volume 83.3 Mean Corpuscular Hemoglobin 27.9 Mean Corpuscular Hemoglobin Concent 33.5 Red Cell Distribution Width 15.8 Platelet Count 384 Mean Platelet Volume 7.5 Neutrophils (%) (Auto) 63.0 Lymphocytes (%) (Auto) 18.1 Monocytes (%) (Auto) 10.3 Eosinophils (%) (Auto) 7.5 Basophils (%) (Auto) 1.1 Neutrophils # (Auto) 5.5 Lymphocytes # (Auto) 1.6 Monocytes # (Auto) 0.9 Eosinophils # (Auto) 0.7 Basophils # (Auto) 0.1 CBC Comment DIFF FINAL Differential Comment Prothrombin Time 10.6 Prothromb Time International Ratio 1.0 Activated Partial Thromboplast Time 20.2 Blood Urea Nitrogen 22 Creatinine 1.06 Random Glucose 91 Total Protein 7.6 Albumin 3.4 Calcium Level 8.9 Alkaline Phosphatase 57 Aspartate Amino Transf (AST/SGOT) 30 Alanine Aminotransferase (ALT/SGPT) 49 Total Bilirubin 0.3 Sodium Level 142 Potassium Level 3.7 Chloride Level 103 Carbon Dioxide Level 30.3 Anion Gap 9 Estimat Glomerular Filtration Rate 49 Lactic Acid Level 0.8 Total Creatine Kinase 48 Troponin I LESS THAN 0.02 Urine Color YELLOW Urine Turbidity HAZY Urine pH 5.5 Urine Specific [place] 1.029 Urine Protein TRACE Urine Glucose (UA) NEG Urine Ketones NEG Urine Occult Blood NEG Urine Nitrite NEG Urine Bilirubin NEG Urine Urobilinogen 2.0 Urine Leukocyte Esterase LARGE Urine RBC 3 Urine WBC 12 Urine Squamous Epithelial Cells 25 Urine Transitional Epithelial Cells <1 Urine Bacteria OCC Urine Hyaline Casts 3 Urine Mucus FEW Microscopic Urinalysis Comment CATH-CULTURE IND Date/Time Source Procedure Growth Status 11/06/17 05:27 Urine Catheterized Urine Urine Culture Pending Received Result Diagram: 11/06/1721011/06/17210 Imaging Last Impressions Chest X-Ray 11/06/17150 Signed Impressions: Service Date/Time: Monday, November 06, 2017 01:53 - CONCLUSION: Bilateral patchy infiltrates. Huan Houston MD Capjaneth VTE Risk Assessment Caprini VTE Risk Assessment: Mod/High Risk (score >= 2) Caprini Risk Assessment Model Point Value = 1 Point Value = 2 Point Value = 3 Point Value = 5 Age 41-60 Minor surgery BMI > 25 kg/m2 Swollen legs Varicose veins or History of unexplained or recurrent spontaneous Oral contraceptives or hormone replacement Sepsis (< 1 month) Serious lung disease, including pneumonia (< 1 month) Abnormal pulmonary function Acute myocardial infarction Congestive heart failure (< 1 month) History of inflammatory bowel disease Medical patient at bed rest Age 61-74 Arthroscopic surgery Major open surgery (> 45 min) Laparoscopic surgery (> 45 min) Malignancy Confined to bed (> 72 hours) Immobilizing plaster cast Central venous access Age >= 75 History of VTE Family history of VTE Factor V Leiden Prothrombin [id number] Lupus anticoagulant Anticardiolipin antibodies Elevated serum homocysteine Heparin-induced thrombocytopenia Other congenital or acquired thrombophilia Stroke (< 1 month) Elective arthroplasty Hip, pelvis, or leg fracture Acute spinal cord injury (< 1 month) Prophylaxis Regimen Total Risk Factor Score Risk Level Prophylaxis Regimen 0-1 Low Early ambulation 2 Moderate Order ONE of the following: *Sequential Compression Device (SCD) *Heparin 5000 units SQ BID 3-4 Higher Order ONE of the following medications: *Heparin 5000 units SQ TID *Enoxaparin/Lovenox 40 mg SQ daily (WT < 150 kg, CrCl > 30 mL/min) *Enoxaparin/Lovenox 30 mg SQ daily (WT < 150 kg, CrCl > 10-29 mL/min) *Enoxaparin/Lovenox 30 mg SQ BID (WT < 150 kg, CrCl > 30 mL/min) AND/OR *Sequential Compression Device (SCD) 5 or more Highest Order ONE of the following medications: *Heparin 5000 units SQ TID (Preferred with Epidurals) *Enoxaparin/Lovenox 40 mg SQ daily (WT < 150 kg, CrCl > 30 mL/min) *Enoxaparin/Lovenox 30 mg SQ daily (WT < 150 kg, CrCl > 10-29 mL/min) *Enoxaparin/Lovenox 30 mg SQ BID (WT < 150 kg, CrCl > 30 mL/min) AND *Sequential Compression Device (SCD) Assessment and Plan Problem List: (1) Pneumonia ICD Code: J18.9 - Pneumonia, unspecified organism Status: Acute (2) Hypertension ICD Code: I10 - Hypertension Status: Acute (3) Hyperlipidemia ICD Code: E78.5 - Hyperlipidemia Status: Acute Assessment and Plan Ms. Rivera is a pleasant 87-year-old female with a history of hypertension, hyperlipidemia who was presented to the emergency department due to altered mental status noted by her son. Emergency room workup indicated bilateral infiltrates. Bilateral pneumonia PSI score 98 (Altered mental status) ==> hospitalization recommended Patient received ceftriaxone and azithromycin in the emergency department. Continue Ceftriaxone 2g and Azithromycin 500mg Qday IV. Wean off O2 requirement to keep O2 sat > 90%. Patient was not on any supplemental O2 at home. DuoNeb PRN. If improves, clinically, patient can likely be discharged on Levaquin 750mg Qday to complete a 7 day course of abx. Hypertension Hyperlipidemia Continue pravastatin Would prefer not to give diuretics such as furosemide or HCTZ. Will start patient on nifedipine 30 mg daily with on now dose. CKD stage III Creatinine 1.06 - appears to be baseline. Full code. Heparin SQ. Physician Certification 2 Midnight Certification Type: Admission for Inpatient Services Order for Inpatient Services The services are ordered in accordance with Medicare regulations or non- Medicare payer requirements, as applicable. In the case of services not specified as inpatient-only, they are appropriately provided as inpatient services in accordance with the 2-midnight benchmark. Estimated LOS (days): 2 days is the estimated time the patient will need to remain in the hospital, assuming treatment plan goals are met and no additional complications. Post-Hospital Plan: Home Problem Qualifiers (1) Pneumonia: Qualified Codes: J18.1 - Lobar pneumonia, unspecified organism Austin Larsen DO Nov 06, 2017 1:22 pm
[2017-11-06 13:51] VITALS: BP_SYST 178; BP_SYST 180; BP_DIAS 72; BP_DIAS 76; PULSE 83; RESP 18; O2SAT 96
[2017-11-06 13:53] VITALS: BP 178/72; PULSE 80; RESP 18; O2SAT 96
[2017-11-06] MEDS ORDERED: RESP: ALBUTEROL 2.5 MG/IPRATROPIUM 0.5 MG NEB (PRN) NEB (15:00)
[2017-11-06] MEDS ORDERED: NIFEdipine 30 MG SUSTAINED RELEASE TAB PO ONE (16:15)
[2017-11-06 16:30] VITALS: BP 192/89; PULSE 85; RESP 18; TEMP 97.4; O2SAT 96
[2017-11-06] MEDS ORDERED: cloNIDine HCL 0.1 MG TAB PO PRN (16:30)
[2017-11-06 20:00] VITALS: BP 155/72; PULSE 90; RESP 18; TEMP 97.2; O2SAT 95
[2017-11-06] MEDS: FERROUS SULFATE 325 MG (65 MG ELEMENTAL IRON) TAB PO SCH (21:16)
[2017-11-06] MEDS: PRAVASTATIN SOD 20 MG TAB PO SCH (21:17)
[2017-11-06] MEDS: ACETAMINOPHEN 325 MG TAB PO PRN (21:18)
[2017-11-06] MEDS: traZODone HCL 50 MG TAB PO PRN (23:33)
[2017-11-07] VITALS (7 sets, daily range): BP systolic 102–156; BP diastolic 59–80; PULSE 81–92; RESP 18–20; TEMP 97.3–98; O2SAT 90–96
[2017-11-07] MEDS ORDERED: cefTRIAXone INJ 1,000 MG in SODIUM CHLORIDE 0.9% INJ 100 ML IV SCH (04:00)
[2017-11-07] MEDS: HEPARIN SODIUM - SQ 10,000 UNITS/ML VIAL SQ SCH ×3 (04:52→22:49)
[2017-11-07] MEDS ORDERED: AZITHROMYCIN INJ 250 MG in SODIUM CHLOR 0.9% 250 ML INJ 250 ML IV SCH (05:00)
[2017-11-07] MEDS: ACETAMINOPHEN 325 MG TAB PO PRN (05:00)
[2017-11-07 06:58] LABS: AUTOMATED NEUTROPHIL # 4.6 TH/MM3 (1.8-7.7); BASOPHIL % 0.6 % (0.0-2.0); EOSINOPHIL # 0.5 TH/MM3 (0-0.4); EOSINOPHIL % 6.9 % (0.0-4.0); HEMATOCRIT 40.4 % (35.0-46.0); HEMOGLOBIN 13.6 GM/DL (11.6-15.3); LYMPH % 20.1 % (9.0-44.0); LYMPHOCYTE # 1.5 TH/MM3 (1.0-4.8); MEAN CELL VOLUME 83.5 FL (80.0-100.0); MEAN CORPUSCULAR HGB CONC 33.6 % (32.0-36.0); MEAN PLATELET VOLUME 7.7 FL (7.0-11.0); MONO % 9.2 % (0.0-8.0); MONOCYTE # 0.7 TH/MM3 (0-0.9); NEUT % 63.2 % (16.0-70.0); PLATELET COUNT 350 TH/MM3 (150-450); RED BLOOD COUNT 4.83 MIL/MM3 (4.00-5.30); RED CELL DISTRIBUTION WIDTH 16.1 % (11.6-17.2); WHITE BLOOD COUNT 7.3 TH/MM3 (4.0-11.0)
[2017-11-07 07:17] LABS: BICARBONATE 26.4 MEQ/L (21.0-32.0); CALCIUM 8.9 MG/DL (8.5-10.1); CREATININE 0.77 MG/DL (0.50-1.00)
[2017-11-07] MEDS: SODIUM CHLORIDE 0.9% FLUSH 10 ML FLUSH IV FLUSH SCH ×2 (08:02→19:54)
[2017-11-07] MEDS: FOLIC ACID 1 MG TAB PO SCH (08:02)
[2017-11-07] MEDS: DOCUSATE SODIUM 50 MG/SENNA 8.6 MG TAB PO SCH ×2 (08:02→19:54)
[2017-11-07] MEDS: ALLOPURINOL 100 MG TAB PO SCH (08:02)
[2017-11-07] MEDS: NIFEdipine 30 MG SUSTAINED RELEASE TAB PO SCH (08:02)
[2017-11-07] MEDS: PANTOPRAZOLE SOD 40 MG DELAYED RELEASE TAB PO SCH (08:02)
[2017-11-07] MEDS: FERROUS SULFATE 325 MG (65 MG ELEMENTAL IRON) TAB PO SCH ×2 (08:02→19:54)
[2017-11-07] MEDS: CHOLECALCIFEROL (VIT D3) 5000 UNIT CAP PO SCH (08:02)
[2017-11-07] MEDS: AZITHROMYCIN INJ 500 MG in SODIUM CHLOR 0.9% 250 ML INJ 250 ML IV SCH (08:02)
[2017-11-07] MEDS: cefTRIAXone INJ 2,000 MG in SODIUM CHLORIDE 0.9% INJ 100 ML IV SCH (10:29)
--- NOTE | 2017-11-07 17:02 | HHI.PR ---
Subjective Remarks Patient resting in bed in no acute distress, discussed with the daughter at the bedside who informed me that the patient was confused disoriented earlier No fever chills Objective Vitals Vital Signs Date Time Temp Pulse Resp B/P (MAP) Pulse Ox O2 Delivery O2 Flow Rate FiO2 11/07/17 08:00 Room Air 11/07/17 04:00 Room Air 11/07/17 04:00 98.0 89 19 123/66 (85) 92 11/07/17 00:00 Room Air 11/07/17 00:00 97.6 92 19 153/80 (104) 93 11/06/17 20:00 97.2 90 18 155/72 (99) 95 I/O 11/06/17 11/06/17 11/06/17 11/07/17 11/07/17 11/07/17 07:00 15:00 23:00 07:00 15:00 23:00 Intake Total 850 ml 240 ml Balance 850 ml 240 ml Intake Oral 240 ml IV Total 850 ml # Voids 6 # Bowel Movements 0 Result Diagram: 11/07/17 0611 11/07/17 0611 Objective Remarks GENERAL: This is a well-nourished, well-developed patient, in no apparent distress. SKIN: No rashes, warm and dry HEAD: Atraumatic. Normocephalic. EYES: Pupils equal round and reactive. Extraocular motions intact. No scleral icterus. ENT: Nose without bleeding, or drainage, Airway patent. NECK: Trachea midline. Supple CARDIOVASCULAR: Regular rate and rhythm 3 out of 6 systolic murmur RESPIRATORY: Fair air entry bilaterally. No wheezes, rales, or rhonchi. GASTROINTESTINAL: Abdomen soft, non-tender, nondistended. Positive bowel sounds MUSCULOSKELETAL: Lower extremity with +3 edema stasis with crusted weeping NEUROLOGICAL: Awake and alert. Moves all extremity. Normal speech.no focal neurological deficit A/P Problem List: (1) Pneumonia ICD Code: J18.9 - Pneumonia, unspecified organism Status: Acute (2) Hypertension ICD Code: I10 - Hypertension Status: Acute (3) Hyperlipidemia ICD Code: E78.5 - Hyperlipidemia Status: Acute Assessment and Plan Ms. Rivera is a pleasant 87-year-old female with a history of hypertension, hyperlipidemia who was presented to the emergency department due to altered mental status noted by her son. Emergency room workup indicated bilateral infiltrates. Bilateral pneumonia PSI score 98 (Altered mental status) ==> hospitalization recommended Patient received ceftriaxone and azithromycin in the emergency department. Continue Ceftriaxone 2g and Azithromycin 500mg Qday IV. Wean off O2 requirement to keep O2 sat > 90%. Patient was not on any supplemental O2 at home. DuoNeb PRN. Will ask speech therapy to assess swallowing, PT OT ordered If improves, clinically, patient can likely be discharged on Levaquin 750mg Qday to complete a 7 day course of abx. Hypertension Hyperlipidemia Continue pravastatin Would prefer not to give diuretics such as furosemide or HCTZ. Will start patient on nifedipine 30 mg daily with on now dose. CKD stage III Creatinine 1.06 - appears to be baseline. Full code. Heparin SQ. Problem Qualifiers (1) Pneumonia: Qualified Codes: J18.1 - Lobar pneumonia, unspecified organism Tra Sevilla MD Nov 07, 2017 17:02
[2017-11-07] MEDS: PRAVASTATIN SOD 20 MG TAB PO SCH (19:54)
[2017-11-07] MEDS: traZODone HCL 50 MG TAB PO PRN (22:49)
[2017-11-08] VITALS: BP 135/63; PULSE 84; RESP 18; TEMP 97.3; O2SAT 96
[2017-11-08 04:00] VITALS: BP 116/74; PULSE 77; RESP 17; TEMP 97.4; O2SAT 95
[2017-11-08] MEDS: HEPARIN SODIUM - SQ 10,000 UNITS/ML VIAL SQ SCH ×3 (06:25→22:00)
[2017-11-08 07:36] LABS: AUTOMATED NEUTROPHIL # 5.5 TH/MM3 (1.8-7.7); BASOPHIL # 0.1 TH/MM3 (0-0.2); BASOPHIL % 0.8 % (0.0-2.0); EOSINOPHIL # 0.5 TH/MM3 (0-0.4); EOSINOPHIL % 6.7 % (0.0-4.0); HEMATOCRIT 41.5 % (35.0-46.0); HEMOGLOBIN 13.9 GM/DL (11.6-15.3); LYMPHOCYTE # 1.2 TH/MM3 (1.0-4.8); MEAN CELL VOLUME 83.5 FL (80.0-100.0); MEAN CORPUSCULAR HGB CONC 33.6 % (32.0-36.0); MEAN PLATELET VOLUME 7.9 FL (7.0-11.0); MONO % 8.9 % (0.0-8.0); MONOCYTE # 0.7 TH/MM3 (0-0.9); NEUT % 68.6 % (16.0-70.0); PLATELET COUNT 354 TH/MM3 (150-450); RED BLOOD COUNT 4.97 MIL/MM3 (4.00-5.30); RED CELL DISTRIBUTION WIDTH 16.2 % (11.6-17.2); WHITE BLOOD COUNT 8.1 TH/MM3 (4.0-11.0)
[2017-11-08 07:39] LABS: BICARBONATE 24.5 MEQ/L (21.0-32.0); CALCIUM 9.2 MG/DL (8.5-10.1); CREATININE 0.96 MG/DL (0.50-1.00)
[2017-11-08 07:53] VITALS: BP 136/64; PULSE 77; RESP 17; TEMP 97.3; O2SAT 95
[2017-11-08] MEDS: cefTRIAXone INJ 2,000 MG in SODIUM CHLORIDE 0.9% INJ 100 ML IV SCH (09:11)
[2017-11-08] MEDS: AZITHROMYCIN INJ 500 MG in SODIUM CHLOR 0.9% 250 ML INJ 250 ML IV SCH (09:11)
[2017-11-08] MEDS: DOCUSATE SODIUM 50 MG/SENNA 8.6 MG TAB PO SCH ×2 (09:11→21:00)
[2017-11-08] MEDS: PANTOPRAZOLE SOD 40 MG DELAYED RELEASE TAB PO SCH (09:11)
[2017-11-08] MEDS: FERROUS SULFATE 325 MG (65 MG ELEMENTAL IRON) TAB PO SCH ×2 (09:11→21:00)
[2017-11-08] MEDS: ALLOPURINOL 100 MG TAB PO SCH (09:12)
[2017-11-08] MEDS: NIFEdipine 30 MG SUSTAINED RELEASE TAB PO SCH (09:12)
[2017-11-08] MEDS: SODIUM CHLORIDE 0.9% FLUSH 10 ML FLUSH IV FLUSH SCH ×2 (09:12→21:00)
[2017-11-08] MEDS: FOLIC ACID 1 MG TAB PO SCH (09:12)
[2017-11-08] MEDS: CHOLECALCIFEROL (VIT D3) 5000 UNIT CAP PO SCH (09:12)
[2017-11-08 11:08] VITALS: BP 130/60; PULSE 79; RESP 18; TEMP 97.5; O2SAT 96
--- NOTE | 2017-11-08 15:11 | HHI.PR ---
Subjective Remarks Patient reports she is feeling much better. Discussed with family at bedside. She is still confused but slightly better. Patient was unable to stand up today. Patient and family is hoping to return home. Objective Vitals Vital Signs Date Time Temp Pulse Resp B/P (MAP) Pulse Ox O2 Delivery O2 Flow Rate FiO2 11/08/17 11:08 97.5 79 18 130/60 (83) 96 11/08/17 08:00 Nasal Cannula 2.00 11/08/17 07:53 97.3 77 17 136/64 (88) 95 11/08/17 04:00 Room Air 11/08/17 04:00 97.4 77 17 116/74 (88) 95 11/08/17 00:00 97.3 84 18 135/63 (87) 96 11/08/17 00:00 Room Air 11/07/17 21:19 96 Nasal Cannula 2.00 11/07/17 20:00 Room Air 11/07/17 20:00 97.8 87 18 102/59 (73) 96 11/07/17 16:00 97.8 90 20 156/77 (103) 90 I/O 11/07/17 11/07/17 11/07/17 11/08/17 11/08/17 11/08/17 07:00 15:00 23:00 07:00 15:00 23:00 Intake Total 240 ml 240 ml 720 ml Output Total 300 ml Balance 240 ml -60 ml 720 ml Intake Oral 240 ml 240 ml 720 ml Output Urine Total 300 ml # Voids 6 4 # Bowel Movements 0 0 1 Result Diagram: 11/08/17 0649 11/08/17 0649 Objective Remarks GENERAL: Elderly female in no apparent distress. CARDIOVASCULAR: Normal rate and regular rhythm. 3/6 HANSEL murmur. RESPIRATORY: Good respiratory efforts. Diminished breath sounds bilaterally at the bases. GASTROINTESTINAL: Abdomen soft, non-tender, non-distended. Normal active bowel sounds MUSCULOSKELETAL: 2+ dependent edema in the lower extremities bilaterally. NEURO: Alert. Oriented to self only. Generalized weakness. PSYCH: Calm A/P Problem List: (1) Pneumonia ICD Code: J18.9 - Pneumonia, unspecified organism Status: Acute (2) Hypertension ICD Code: I10 - Hypertension Status: Acute (3) Hyperlipidemia ICD Code: E78.5 - Hyperlipidemia Status: Acute Assessment and Plan Ms. Rivera is a pleasant 87-year-old female with a history of hypertension, hyperlipidemia who was presented to the emergency department due to altered mental status noted by her son. Emergency room workup indicated bilateral infiltrates. Bilateral pneumonia PSI score 98 (Altered mental status) ==> hospitalization recommended Patient received ceftriaxone and azithromycin in the emergency department. Continue Ceftriaxone 2g and Azithromycin 500mg Qday IV. Transition to oral Levaquin. Wean off O2 requirement to keep O2 sat > 90%. Patient was not on any supplemental O2 at home. DuoNeb PRN. Home oxygen walk test in the a.m. Incentive spirometry. If improves, clinically, patient can be discharged on Levaquin 750mg Qday to complete a 7 day course of abx. Hypertension Hyperlipidemia Continue pravastatin Would prefer not to give diuretics such as furosemide or HCTZ. Will start patient on nifedipine 30 mg daily with on now dose. Debility: Secondary to pneumonia, advanced age and comorbid conditions. -PT recommended rehab. However patient and her family wants to return home. We will have PT evaluate again tomorrow. CKD stage III Creatinine 1.06 - appears to be baseline. Full code. Heparin SQ. Problem Qualifiers (1) Pneumonia: Qualified Codes: J18.1 - Lobar pneumonia, unspecified organism Kenya Hess MD Nov 08, 2017 15:11
[2017-11-08 16:00] VITALS: BP 129/68; PULSE 77; RESP 17; TEMP 97.7; O2SAT 92
[2017-11-08 20:00] VITALS: BP 116/67; PULSE 85; RESP 17; TEMP 97.9; O2SAT 93
[2017-11-08] MEDS: PRAVASTATIN SOD 20 MG TAB PO SCH (21:00)
[2017-11-09] VITALS: BP 106/71; PULSE 90; RESP 17; TEMP 97.6; O2SAT 92
[2017-11-09 04:00] VITALS: BP_SYST 101; BP_SYST 161; BP_DIAS 48; BP_DIAS 70; PULSE 91; PULSE 92; RESP 18; TEMP 97.4; TEMP 98.5; O2SAT 93; O2SAT 98
[2017-11-09] MEDS: HEPARIN SODIUM - SQ 10,000 UNITS/ML VIAL SQ SCH (05:53)
[2017-11-09 07:14] VITALS: BP 115/75; PULSE 85; RESP 18; TEMP 97.4; O2SAT 94
[2017-11-09] MEDS ORDERED: LEVOFLOXACIN 750 MG TAB PO SCH (09:00)
[2017-11-09] MEDS: FOLIC ACID 1 MG TAB PO SCH (09:59)
[2017-11-09] MEDS: FERROUS SULFATE 325 MG (65 MG ELEMENTAL IRON) TAB PO SCH (09:59)
[2017-11-09] MEDS: ALLOPURINOL 100 MG TAB PO SCH (09:59)
[2017-11-09] MEDS: PANTOPRAZOLE SOD 40 MG DELAYED RELEASE TAB PO SCH (09:59)
[2017-11-09] MEDS: NIFEdipine 30 MG SUSTAINED RELEASE TAB PO SCH (09:59)
[2017-11-09] MEDS: DOCUSATE SODIUM 50 MG/SENNA 8.6 MG TAB PO SCH (10:00)
[2017-11-09] MEDS: CHOLECALCIFEROL (VIT D3) 5000 UNIT CAP PO SCH (10:00)
[2017-11-09] MEDS: SODIUM CHLORIDE 0.9% FLUSH 10 ML FLUSH IV FLUSH SCH (10:01)
[2017-11-09 11:03] VITALS: BP 104/64; PULSE 77; RESP 18; TEMP 97.4; O2SAT 94
[2017-11-09] MEDS ORDERED: LEVA750T9 PO (11:28)
--- NOTE | 2017-11-09 11:31 | HHI.FF ---
Face to Face Verification Diagnosis: (1) Pneumonia (2) Hypertension (3) Hyperlipidemia Physical Therapy Order: Evaluate and Treat, Strength and gait training Home Health Nursing Order: Medical education Signs/symptoms of disease process Medication education-adverse effect Nursing assessment with vital signs I have seen patient Debby José on 11/09/17. My clinical findings support the need for the requested home health care services because: Patient has SOB Deconditioned w/ increased weakness Limited ability to care for self High risk of falls I certify that my clinical findings support that this patient is homebound because: Unsteady gait/balance Kenya Hess MD Nov 09, 2017 11:31
--- NOTE | 2017-11-09 11:32 | HHI.DS ---
Discharge Summary Admission Date Nov 06, 2017 at 05:06 Discharge Date: Nov 09, 2017 Admitting Diagnosis AMS, bilateral pneumonia (1) Pneumonia ICD Code: J18.9 - Pneumonia, unspecified organism Status: Acute (2) Hypertension ICD Code: I10 - Hypertension Status: Acute (3) Hyperlipidemia ICD Code: E78.5 - Hyperlipidemia Status: Acute (4) Debility ICD Code: R53.81 - Other malaise Procedures None Brief History - From Admission HPI from the admitting physician Ms. José is a pleasant 87 year old female with a history of hyperlipidemia, hypertension who was brought to the emergency department on 11/06/2017 due to altered mental status. No family members at bedside at the time of this interview. Patient cannot give me a good history. However her ED records according to son patient has been somewhat confused and shows mental status change. At the time of this interview, patient could not tell me why she is in the hospital. She feels uncomfortable in her emergency room bed. She denies any cough, fever or chills. No changes in bowel or bladder habits. CBC/BMP: 11/08/17 0649 11/08/17 0649 Significant Findings Laboratory Tests Test 11/07/17 06:11 11/08/17 06:49 Monocytes (%) (Auto) 9.2 % (0.0-8.0) 8.9 % (0.0-8.0) Eosinophils (%) (Auto) 6.9 % (0.0-4.0) 6.7 % (0.0-4.0) Eosinophils # (Auto) 0.5 TH/MM3 (0-0.4) 0.5 TH/MM3 (0-0.4) Blood Urea Nitrogen 19 MG/DL (7-18) 25 MG/DL (7-18) Estimat Glomerular Filtration Rate 71 ML/MIN (>89) 55 ML/MIN (>89) Imaging Last Impressions Chest X-Ray 11/06/17 0151 Signed Impressions: Service Date/Time: Monday, November 06, 2017 01:53 - CONCLUSION: Bilateral patchy infiltrates. Huan Houston MD PE at Discharge GENERAL: Elderly female in no apparent distress. CARDIOVASCULAR: Normal rate and regular rhythm. 3/6 HANSEL murmur. RESPIRATORY: Good respiratory efforts. Diminished breath sounds bilaterally at the bases. GASTROINTESTINAL: Abdomen soft, non-tender, non-distended. Normal active bowel sounds MUSCULOSKELETAL: 2+ dependent edema in the lower extremities bilaterally. NEURO: Alert. Oriented to self only. Generalized weakness. PSYCH: Calm Pt update on day of discharge Patient reports she is breathing much more comfortably. Discussed with family at bedside. She is still debilitated and improved physical condition. However she adamantly refused rehab. She is fixated on going home today. Discussed with her son and daughter at bedside at length. All agreed to take the patient home. I have signed a 3008 in case she needs to be admitted to rehab from home. Hospital Course Ms. Rivera is a pleasant 87-year-old female with a history of hypertension, hyperlipidemia who was presented to the emergency department due to altered mental status noted by her son. Emergency room workup indicated bilateral infiltrates. Evaluation and treatment course detailed below: Bilateral pneumonia PSI score 98 (Altered mental status) ==> hospitalization recommended Patient received ceftriaxone and azithromycin in the emergency department. Patient was treated with ceftriaxone 2g and Azithromycin 500mg Qday IV. T she was later transitioned to oral Levaquin to complete the course of treatment outpatient. She was weaned off oxygen. She improved clinically Hypertension Hyperlipidemia Continue pravastatin Medications were adjusted. She was started on nifedipine. Continue Lasix. Debility: Secondary to pneumonia, advanced age and comorbid conditions. -PT recommended rehab. However patient and her family wants to return home. Per extensive discussion with patient and family, she opted to go home with home health and PT. I have signed a 3008 in case she needs to be admitted to rehab from home. CKD stage III Creatinine 1.06 - appears to be baseline. Pt Condition on Discharge: Stable Discharge Disposition: Disch w/ Home Health Serv Discharge Time: > 30 minutes Discharge Instructions DIET: Follow Instructions for: Heart Healthy Diet Activities you can perform: Regular-No Restrictions Follow up Referrals: PCP Follow-up - 1 Week PCP Follow-up with [facility]/ with [facility] New Medications: Levofloxacin (Levaquin) 750 Mg Tablet 750 MG PO DAILY, #5 TAB Continued Medications: Allopurinol (Allopurinol) 100 Mg Tab 100 MG PO DAILY for Gout, #30 TAB 0 Refills Cholecalciferol (D3 Maximum Strength) 5,000 Unit Cap 5000 UNITS PO DAILY for Nutritional Supplement, #30 CAP 0 Refills Cyanocobalamin (B12) 1,000 Mcg Tab Ferrous Sulfate (Ferosul) 325 Mg (65 Mg Iron) Tablet 325 MG PO BID for ANEMIA for 30 Days, #60 TAB Ferrous Sulfate (Ferrous Sulfate) 325 Mg (65 Mg Iron) Tablet 325 MG PO DAILY for Nutritional Supplement, #30 TAB 0 Refills Folic Acid (Folic Acid) 0.8 Mg Tab 1000 MCG PO DAILY for Nutritional Supplement, TAB 0 Refills Furosemide (Furosemide) 20 Mg Tab 20 MG PO DAILY, #30 TAB 0 Refills Pantoprazole (Pantoprazole) 40 Mg Tab 40 MG PO DAILY for Reflux for 30 Days, #30 TAB 0 Refills Pravastatin (Pravastatin) 80 Mg Tab 20 MG PO HS for Cholesterol Management, #30 TAB 0 Refills Pravastatin (Pravastatin) 10 Mg Tab 10 MG PO HS for Cholesterol Management, #30 TAB 0 Refills Tramadol (Tramadol) 50 Mg Tab 50 MG PO Q4H PRN for PAIN, TAB 0 Refills Trazodone (Trazodone) 50 Mg Tab 50 MG PO HS PRN for INSOMNIA, #30 TAB 0 Refills Discontinued Medications: Hydrochlorothiazide (Hydrochlorothiazide) 25 Mg Tab 25 MG PO DAILY, #30 TAB 0 Refills Kenya Hess MD Nov 09, 2017 11:32
--- NOTE | 2017-11-09 11:34 | HHI.DCPOC ---
Discharge Care Plan Diagnosis: (1) Pneumonia (2) Hyperlipidemia (3) Altered mental status (4) Hypertension Goals to Promote Your Health * To prevent worsening of your condition and complications * To maintain your health at the optimal level Directions to Meet Your Goals Take your medications as prescribed Follow your dietary instruction Follow activity as directed Keep your appointments as scheduled Take your immunizations and boosters as scheduled If your symptoms worsen call your PCP, if no PCP go to Urgent Care Center or Emergency Room Smoking is Dangerous to Your Health. Avoid second hand smoke Call the 24-hour hour crisis hotline for domestic abuse at Kenya Hess MD Nov 09, 2017 11:33
[2017-11-09] MEDS: ACETAMINOPHEN 325 MG TAB PO PRN (13:30)
== END 2017-11-09 16:46 | disposition home health service (06) | DRG 194 ==
LOC: NEPE 01:24 → NEDA 05:06 → NEDH 09:24 → N04A 14:29
PROVIDERS: ADMIT Family Medicine; ATTEND Family Medicine
DX: J18.9 Pneumonia, unspecified organism (principal); J44.0 Chronic obstructive pulmonary disease with (acute) lower respiratory infection; I13.0 Hypertensive heart and chronic kidney disease with heart failure and stage 1 through stage 4 chronic kidney disease, or unspecified chronic kidney disease; I50.9 Heart failure, unspecified; E86.0 Dehydration; N18.3 Chronic kidney disease, stage 3 (moderate); E78.5 Hyperlipidemia, unspecified; M19.90 Unspecified osteoarthritis, unspecified site; H40.9 Unspecified glaucoma; I73.9 Peripheral vascular disease, unspecified
CPT/HCPCS: 71045; 80048; 80053; 81001; 82550; 83605; 83880; 84484; 85025; 85610; 85730; 87086; 93005; 96365; 96367; J0456; J0696; J1644; J7030; J7040; J7050